=== PATIENT | male | born 1965 | race Caucasian/White ===

== ENCOUNTER 2017-01-16 17:14 | Inpatient (IN) | payer OTHER, MEDICAID ==
[~2017-01-16] VITALS: Ht 170.2 cm; Wt 50.3 kg
[2017-01-16 17:26] VITALS: BP_SYST 124
--- NOTE | 2017-01-16 17:32 | NUR ---
PT to bed 5
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
--- NOTE | 2017-01-16 18:08 | NUR ---
ER Dr. Quevedo at bedside examining patient.
[2017-01-16] MEDS ORDERED: POLYETHYLENE GLYCOL 3350, 17 GM/ POWD.PACK PO ONE (18:15)
[2017-01-16] MEDS ORDERED: BISACODYL 10 MG/SUPPOSITORY RC ONE (18:15)
[2017-01-16 18:23] LABS: HEMOGLOBIN 11.5 g/dL (14.0-18.0); RED CELL DISTRIBUTION WIDTH 14.5 % (9.0-15.0)
[2017-01-16 18:32] LABS: BASOPHILS # (AUTO) 0.1 K/uL (0.0-0.2); BASOPHILS % (AUTO) 1.5 % (0.0-2.0); EOSINOPHILS # (AUTO) 0.2 K/uL (0.0-0.4); EOSINOPHILS % (AUTO) 2.3 % (0.0-4.0); LYMPHOCYTES # (AUTO) 3.8 K/uL (1.0-5.5); LYMPHOCYTES % (AUTO) 40.6 % (20.5-51.5); MEAN CORPUSCULAR HEMOGLOBIN 22 pg (27-31); MEAN CORPUSCULAR HGB CONC 33 % (32-36); MEAN CORPUSCULAR VOLUME 67 fL (79.0-98.0); MONOCYTES # (AUTO) 0.6 K/uL (0.0-1.0); MONOCYTES % (AUTO) 6.9 % (1.7-9.3); NEUTROPHILS # (AUTO) 4.7 K/uL (1.8-7.7); NEUTROPHILS % (AUTO) 48.7 % (40.0-70.0); PLATELET COUNT (AUTO) 415 K/uL (130-430); PROTHROMBIN TIME 10.9 SECS (9.5-12.5); RED BLOOD CELL COUNT(AUTO) 5.21 MIL/uL (4.2-6.2); WHITE BLOOD COUNT (AUTO) 9.4 K/uL (4.8-10.8)
[2017-01-16 18:45] LABS: CALCIUM 9.2 mg/dL (8.4-11.0); CREATININE 0.61 mg/dL (0.55-1.30); POTASSIUM 3.9 mmol/L (3.5-5.1)
[2017-01-16 18:49] LABS: ALBUMIN 3.6 g/dL (3.4-4.8); TOTAL BILIRUBIN 0.3 mg/dL (0.0-1.0)
[2017-01-16 18:49] LABS: BILIRUBIN,URINE NEGATIVE (NEGATIVE); BLOOD, URINE TRACE (NEGATIVE); CLARITY/URINE CLEAR (CLEAR); COLOR,URINE YELLOW (YELLOW); GLUCOSE,URINE NEGATIVE (NEGATIVE); KETONES,URINE NEGATIVE (NEGATIVE); LEUKOCYTE ESTERASE ,URINE NEGATIVE (NEGATIVE); NITRITE, URINE NEGATIVE (NEGATIVE); PH,URINE 6.5 (5.0-8.0); PROTEIN URINE NEGATIVE (NEGATIVE); UROBILINOGEN,URINE 0.2 (0.2-1.0)
[2017-01-16 18:51] LABS: BACTERIA,URINE FEW /HPF (None Seen); MUCUS,URINE None Seen /LPF (None Seen); WBC,URINE 0-3 /HPF (0-3)
--- NOTE | 2017-01-16 18:51 | NUR ---
Portable CXR at . Pt is huber well Addendum: 01/16/17 at 1852 by [email or web address] Portable abd xray at . pt is huber well
[2017-01-16] MEDS ORDERED: POLYETHYLENE GLYCOL 3350, 17 GM/ POWD.PACK ONE (18:54)
[2017-01-16] MEDS ORDERED: NA PHOS,M-B/NA PHOS,DI-BA 118 ML (FLEET ENEMA) RC ONE (19:30)
--- NOTE | 2017-01-16 19:50 | NUR ---
ER MD PULIDO at bedside evaluating patient.
[2017-01-16] MEDS ORDERED: LACTULOSE 20 GM/30 ML UDC PO ONE (20:15)
--- NOTE | 2017-01-16 20:30 | NUR ---
Pt has passed one small bowel movement. Pt states he still feels constipated. Fleet enema has been given. Will continue to monitor.
--- NOTE | 2017-01-16 22:05 | NUR ---
Pt to radiology.
[2017-01-16] MEDS ORDERED: LEVO750T45 PO (23:27)
--- NOTE | 2017-01-16 23:28 | NUR ---
Soap enema placed per MD verbal order, 500 mL of solution completed. Will monitor patient for bowel movements.
--- NOTE | 2017-01-16 23:28 | NUR ---
Medication reconciliation completed with information provided by - verbal from patient. Any prior medication reconciliation on file was reviewed and corrected.
--- NOTE | 2017-01-16 23:34 | NUR ---
Patient will be admitted to care of Abhishek Maher. Admitted to tele unit. Will go to room 135. Belongings list completed. Summary report printed. Report will be given at bedside.
[2017-01-16] MEDS ORDERED: MAGNESIUM CITRATE 300 ML ORAL SOLUTION PO ONE (23:45)
[2017-01-16] MEDS ORDERED: MINERAL OIL 30 ML UDC PO ONE (23:45)
[2017-01-17] VITALS (7 sets, daily range): BP systolic 111–140
--- NOTE | 2017-01-17 | NUR ---
ADMISSION NOTE Received patient from ER via gurjaci, received report from RN. Patient admitted with diagnosis of fecal impaction. Patient oriented to hospital routine, call light, toileting and safety-patient verbalized understanding.
--- NOTE | 2017-01-17 | NUR ---
Patient will be admitted to care of ZACHARY Hicks. Admitted to MED SURG unit. Will go to room 100 A . Belongings list completed. Summary report printed. Report will be given at bedside.
--- NOTE | 2017-01-17 00:54 | NUR ---
paged paged for Dr Maher, dialed . s/w Anthony.
[2017-01-17] MEDS: HYDROmorphone 2 MG/ML VIAL IVP PRN ×6 (01:47→22:05)
--- NOTE | 2017-01-17 02:37 | NUR ---
Rounds Notes Patient on bed, sleeping noted. No sign of respiratory distress and no complain of pain or discomfort noted. F/C is intact draining with yellow clear urine noted. Will continue to monitor. Call light within reach.
--- NOTE | 2017-01-17 04:04 | NUR ---
Rounds Notes Patient on bed, sleeping noted covered with blankets. No sign of respiratory distress and no complain of pain or discomfort noted. Will continue to monitor. Call light within reach.
--- NOTE | 2017-01-17 06:17 | NUR ---
Closing Notes Patient on bed awake, alert and verbally responsive watching TV noted. No sign of respiratory distress and given pain medication as ordered with no complain of pain noted. All needs attended and met by staff. Call light within reach.
--- NOTE | 2017-01-17 08:00 | NUR ---
Opening Note Report received from [facility] shift nurse. Patient is in stable condition and resting in bed. IV is on the right hand 20g saline locked. Butt catheter is to gravity draining clear yellow urine. Call light is within reach and bed is in low position. Will continue to monitor.
[2017-01-17] MEDS: NICOTINE 21 MG/24 HR PATCH.TD24 TD SCH (09:34)
--- NOTE | 2017-01-17 10:02 | NUR ---
Rounds Patient is resting in bed. Call light is within reach.
--- NOTE | 2017-01-17 12:30 | NUR ---
Rounds Patient is resting in bed. Call light is within reach. No signs of distress noted.
--- NOTE | 2017-01-17 14:35 | NUR ---
Rounds Patient is resting in bed. Call light is within reach.
--- NOTE | 2017-01-17 16:25 | NUR ---
Tierney cath flushed Flushed tierney cath with 30ml. Total ouptut of urine was 500ml. Patient tolerated well.
[2017-01-17] MEDS ORDERED: BISACODYL 10 MG/SUPPOSITORY RC ONE (17:45)
[2017-01-17] MEDS: LR 1,000 ML IV SCH (18:11)
[2017-01-17] MEDS: BISACODYL 10 MG/SUPPOSITORY RC PRN (18:15)
--- NOTE | 2017-01-17 18:25 | NUR ---
Closing Note Dr. Maher rounded on the patient. MD gave orders for IV fluids and suppository. also ordered a consult with Dr. Villalta. IV is on the left hand 20g. Will endorse care to the oncoming nurse.
--- NOTE | 2017-01-17 19:15 | NUR ---
CHANGE OF SHIFT: pt. awake, alert, being cleaned at this time. IVF infusing via rt. hand with LR @ 100 cc/hr. call light within reach.
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
--- NOTE | 2017-01-17 21:00 | NUR ---
NOTES: noted IV site leaking and accidentally came out. asked charge nurse Dida to insert a new one.
--- NOTE | 2017-01-17 22:15 | NUR ---
NOTES: pt. c/o back and neck and medicated with Dilaudid IV as ordered. call light within reach.
--- NOTE | 2017-01-17 23:00 | NUR ---
NOTES: noted relief from pain. pt. asked to be clean, SERA Grey help and clean him up and repositioned, pt. on air mattress. IV site on rt. wrist area. pt. needs attended.
[2017-01-18 00:07] VITALS: BP_SYST 126
--- NOTE | 2017-01-18 01:30 | NUR ---
NOTES: pt. sleeping when checked. IVF patent.
[2017-01-18] MEDS: HYDROmorphone 2 MG/ML VIAL IVP PRN ×4 (03:02→15:07)
--- NOTE | 2017-01-18 03:10 | NUR ---
NOTES: pt. awakened and was medicated with Dilaudid for c/o back and neck pain. repositioned.
[2017-01-18 04:01] VITALS: BP_SYST 121
--- NOTE | 2017-01-18 04:49 | NUR ---
GI CONSULT: DR BARRETO Consult was called, RE fecal impaction JUSTIN Yoo
[2017-01-18] MEDS: LR 1,000 ML IV SCH ×2 (05:44→14:23)
--- NOTE | 2017-01-18 06:00 | NUR ---
NOTES: pt. already awake, getting upset, wants to eat, offered jello and informed will ask MD later this am to advance diet. X ray done for bowel series at bedside. IVF continuous. for further care and observation.
[2017-01-18 06:42] LABS: HEMOGLOBIN 10.8 g/dL (14.0-18.0); MEAN CORPUSCULAR HEMOGLOBIN 21 pg (27-31); MEAN CORPUSCULAR HGB CONC 32 % (32-36); MEAN CORPUSCULAR VOLUME 67 fL (79.0-98.0); PLATELET COUNT (AUTO) 420 K/uL (130-430); RED BLOOD CELL COUNT(AUTO) 5.04 MIL/uL (4.2-6.2); WHITE BLOOD COUNT (AUTO) 8.1 K/uL (4.8-10.8)
[2017-01-18 07:08] LABS: CALCIUM 8.6 mg/dL (8.4-11.0); CREATININE 0.46 mg/dL (0.55-1.30); POTASSIUM 4.3 mmol/L (3.5-5.1)
--- NOTE | 2017-01-18 07:15 | NUR ---
endorsed pt. to incoming shift with nurse Addendum: 01/18/17 at 0749 by Kiki Bello RN pt. was just medicated with IV Dilaudid for c/o back and neck pain.
[2017-01-18 07:29] LABS: BASOPHILS % (MANUAL) 0 % (0-2); EOSINOPHILS % (MANUAL) 2 % (0-7); LYMPHOCYTES % (MANUAL) 57 % (20-46); MONOCYTES % (MANUAL) 8 % (0-11)
--- NOTE | 2017-01-18 07:32 | NUR ---
Initial notes: patient on bed awake, alert and oriented. I.V. access in placed. Discussed plan of care. Safety measures in placed. Call light within reach. Report received at bedside.
[2017-01-18 07:48] VITALS: BP_SYST 105
--- NOTE | 2017-01-18 08:15 | NUR ---
Julio rounds: seen by Dr. Gurrola with diet order.
[2017-01-18] MEDS: NICOTINE 21 MG/24 HR PATCH.TD24 TD SCH (08:27)
--- NOTE | 2017-01-18 08:32 | NUR ---
rounds: patient having breakfast. no distress noted.
[2017-01-18] MEDS ORDERED: LUBIPROSTONE 24 MCG CAPSULE PO SCH (09:00)
[2017-01-18] MEDS ORDERED: DOCUSATE SODIUM 100 MG CAPSULE PO SCH (09:00)
[2017-01-18] MEDS ORDERED: POLYETHYLENE GLYCOL 3350, 17 GM/ POWD.PACK PO SCH (09:00)
[2017-01-18] MEDS: BISACODYL 10 MG/SUPPOSITORY RC PRN (09:05)
--- NOTE | 2017-01-18 09:05 | NUR ---
constipation: pt complained of constipation and requesting suppository. suppository given.
--- NOTE | 2017-01-18 10:02 | NUR ---
rounds: patient resting on bed. no distress noted.
--- NOTE | 2017-01-18 11:03 | NUR ---
PAIN MEDS: Patient complained of back pain and neck pain 7/10. Due pain meds given thru IVP.
--- NOTE | 2017-01-18 11:55 | NUR ---
rounds: patient having lunch. no changed in condition.
[2017-01-18 12:18] VITALS: BP_SYST 113
--- NOTE | 2017-01-18 12:48 | NUR ---
rounds: patient on bed sleeping. no distress noted.
--- NOTE | 2017-01-18 14:32 | NUR ---
rounds: patient on bed resting. no distress noted.
--- NOTE | 2017-01-18 16:19 | NUR ---
rounds: patient on bed resting. no distress noted.
[2017-01-18 16:47] VITALS: BP_SYST 111
--- NOTE | 2017-01-18 17:00 | NUR ---
jayden zelaya: Seen by Dr. Maher with D/C with .
[2017-01-18 18:02] VITALS: BP_SYST 111
--- NOTE | 2017-01-18 18:15 | NUR ---
D/C Patient Patient given medication reconciliation form and D/C instructions. Exit Care provided. Patient verbalized understanding. MD discussed with patient the results and treatment provided. Patient wheelchair bound for discharge to home. Patient in stable condition, ID band removed. IV catheter removed, intact and dressing applied, no active bleeding. Patient educated on pain management. All belongings sent with patient.
--- NOTE | 2017-01-19 09:56 | NUR ---
DISCHARGE PLANNING [place] order for home health. Called patient who stated he is homeless and does not have an address at this time. Patient stated he is currently making arrangements to live with his son in [place]. [facility] offered to make arrangements and patient requested to not have home health arranged at this time as he does not have an address to give. Addendum: 01/19/17 at 1011 by Alina SMITH Meanwhile; Faxed home health referral to [phone] made them aware patient is homeless. Addendum: 01/19/17 at 1620 by Alina SMITH Spoke with Michelle at [facility] accept case and will call patient to make visit arrangements. Addendum: 01/20/17 at 0914 by Alina SMITH Received call from Michelle at [facility] who spoke with patient this morning and felt patient needed to be admitting to SNF and may return back to hospital this AM.
== END 2017-01-18 18:15 | disposition home or self-care (01) | DRG 389 ==
LOC: SED 17:14 → SMU 23:30
PROVIDERS: ADMIT Internal Medicine; ATTEND Internal Medicine
DX: K56.41 Fecal impaction (principal); G82.20 Paraplegia, unspecified; F17.200 Nicotine dependence, unspecified, uncomplicated; R33.9 Retention of urine, unspecified
CPT/HCPCS: 36415; 74000-TC; 80048; 80053; 81000-TC; 82150-TC; 83690-TC; 85007; 85025; 85027; 85610-TC; 87081; 99285; J1170; J7120

== ENCOUNTER 2017-01-20 12:14 | Emergency (ER) | payer OTHER, MEDICAID ==
[~2017-01-20] VITALS: Ht 170.2 cm; Wt 51.7 kg
[~2017-01-20 12:14] MED LIST: LEVO750T45 PO
[2017-01-20 12:28] VITALS: BP 110/67; PULSE 109; RESP 16; TEMP 97.6; O2SAT 98
[2017-01-20] MEDS ORDERED: KETOROLAC TROMETHAMINE 30 MG VIAL IM ONE (15:30)
[2017-01-20] MEDS ORDERED: LACTULOSE 20 GM/30 ML UDC PO ONE (16:45)
[2017-01-20] MEDS ORDERED: LORazepam 1 MG TABLET PO ONE (17:15)
[2017-01-20] MEDS ORDERED: DICYCLOMINE HCL 20 MG/2 ML AMP IM ONE (17:15)
[2017-01-20 18:40] VITALS: BP 101/54; PULSE 78; RESP 16; TEMP 97.6; O2SAT 98
== END 2017-01-20 18:40 ==
LOC: SED 12:14
DX: K56.41 Fecal impaction (principal); G82.20 Paraplegia, unspecified; R11.0 Nausea
CPT/HCPCS: 96372; 96374; 99284; J0500; J1885

== ENCOUNTER 2017-05-01 07:58 | Emergency (ER) | payer OTHER, MEDICAID ==
[~2017-05-01] VITALS: Ht 170.2 cm; Wt 51.3 kg
[2017-05-01 08:00] VITALS: BP_SYST 120
[2017-05-01] MEDS ORDERED: NACL 0.9% 1,000 ML IV ONE (08:36)
[2017-05-01 09:04] LABS: BILIRUBIN,URINE NEGATIVE (NEGATIVE); BLOOD, URINE NEGATIVE (NEGATIVE); CLARITY/URINE CLEAR (CLEAR); COLOR,URINE YELLOW (YELLOW); GLUCOSE,URINE NEGATIVE (NEGATIVE); KETONES,URINE NEGATIVE (NEGATIVE); LEUKOCYTE ESTERASE ,URINE NEGATIVE (NEGATIVE); NITRITE, URINE NEGATIVE (NEGATIVE); PROTEIN URINE NEGATIVE (NEGATIVE); UROBILINOGEN,URINE 0.2 (0.2-1.0)
[2017-05-01 09:15] LABS: BASOPHILS # (AUTO) 0.1 K/uL (0.0-0.2); EOSINOPHILS # (AUTO) 0.3 K/uL (0.0-0.4); EOSINOPHILS % (AUTO) 2.9 % (0.0-4.0); HEMATOCRIT 36.9 % (36-54); HEMOGLOBIN 11.4 g/dL (14.0-18.0); LYMPHOCYTES # (AUTO) 2.9 K/uL (1.0-5.5); LYMPHOCYTES % (AUTO) 32.4 % (20.5-51.5); MEAN CORPUSCULAR HEMOGLOBIN 21 pg (27-31); MEAN CORPUSCULAR HGB CONC 31 % (32-36); MEAN CORPUSCULAR VOLUME 68 fL (79.0-98.0); MONOCYTES # (AUTO) 0.5 K/uL (0.0-1.0); MONOCYTES % (AUTO) 5.5 % (1.7-9.3); NEUTROPHILS # (AUTO) 5.1 K/uL (1.8-7.7); NEUTROPHILS % (AUTO) 58.2 % (40.0-70.0); PLATELET COUNT (AUTO) 411 K/uL (130-430); RED BLOOD CELL COUNT(AUTO) 5.41 MIL/uL (4.2-6.2); RED CELL DISTRIBUTION WIDTH 14.5 % (9.0-15.0); WHITE BLOOD COUNT (AUTO) 8.9 K/uL (4.8-10.8)
[2017-05-01] MEDS ORDERED: ACETAMINOPHEN 325 MG TABLET PO ONE (09:15)
[2017-05-01 09:20] LABS: CALCIUM 8.7 mg/dL (8.4-11.0); CREATININE 0.27 mg/dL (0.55-1.30); POTASSIUM 3.1 mmol/L (3.5-5.1)
[2017-05-01 09:25] LABS: ALBUMIN 3.8 g/dL (3.4-4.8); TOTAL BILIRUBIN 0.6 mg/dL (0.0-1.0)
[2017-05-01 10:00] VITALS: BP_SYST 117
[2017-05-01] MEDS ORDERED: MAGNESIUM CITRATE 300 ML ORAL SOLUTION PO ONE (10:00)
[2017-05-01] MEDS ORDERED: POTASSIUM CHLORIDE 20 MEQ TAB.PRT.SR PO ONE (10:00)
[2017-06-29] MEDS ORDERED: OXYC60TA8 PO (18:30)
[2017-09-30] MEDS ORDERED: DOCU250C14 PO (12:03)
[2017-09-30] MEDS ORDERED: BISA-79 PO (12:04)
[2017-09-30] MEDS ORDERED: HYDR2TAB34 PO (12:05)
== END 2017-05-01 10:00 | disposition home or self-care (01) ==
LOC: SED 07:58
DX: K52.9 Noninfective gastroenteritis and colitis, unspecified (principal); G82.20 Paraplegia, unspecified
CPT/HCPCS: 36415; 74018; 80053; 81003; 83605; 83690; 85025; 87040; 96360; 99285; J7030

== ENCOUNTER 2018-07-10 16:51 | Emergency (ER) | payer OTHER, MEDICAID ==
[~2018-07-10] VITALS: Ht 170.2 cm; Wt 51.3 kg
[~2018-07-10 16:51] MED LIST changes: +BISA-79 PO; +DOCU250C14 PO; +HYDR2TAB34 PO; -LEVO750T45 PO; +OXYC60TA8 PO
[2018-07-10 16:59] VITALS: BP_SYST 149
--- NOTE | 2018-07-10 17:05 | NUR ---
Patient to ER bed 6 to gown for evaluation. Side rails up. Report given to ZACHARY Yoo.
--- NOTE | 2018-07-10 17:08 | NUR ---
ER Dr. Zavala at bedside examining patient.
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
[2018-07-10] MEDS ORDERED: KETOROLAC TROMETHAMINE 60 MG/2 ML VIAL IM ONE (17:15)
--- NOTE | 2018-07-10 17:15 | NUR ---
Patient offered social media content manager, pt declined. Patient offered clean clothes, pt declined. Patient offered sandwich, sandwich given.
[2018-07-10 17:55] VITALS: BP_SYST 149
--- NOTE | 2018-07-10 17:55 | NUR ---
Patient given written and verbal discharge instructions and verbalizes understanding. ER MD discussed with patient the results and treatment provided. Patient in stable condition. ID arm band removed. Rx of Tramadol & lomotil given. Patient educated on pain management and to follow up with PMD. Pain Scale 2/10 tolerable for pt.. Opportunity for questions provided and answered. Medication side effect fact sheet provided.
--- NOTE | 2018-07-10 17:55 | NUR ---
Pt given Homeless reaource packet on discharge.
--- NOTE | 2018-07-10 17:55 | NUR ---
Patient given written and verbal discharge instructions and verbalizes understanding. ER MD discussed with patient the results and treatment provided. Patient in stable condition. ID arm band removed. Rx of tramadol, lomotil given. Patient educated on pain management and to follow up with PMD. Pain Scale2/10 and tolerable for pt . Opportunity for questions provided and answered. Medication side effect fact sheet provided.
== END 2018-07-10 17:55 | disposition home or self-care (01) ==
LOC: SED 16:51
DX: G89.29 Other chronic pain (principal); R19.7 Diarrhea, unspecified; M54.9 Dorsalgia, unspecified; F43.9 Reaction to severe stress, unspecified; R03.0 Elevated blood-pressure reading, without diagnosis of hypertension; Z79.899 Other long term (current) drug therapy
CPT/HCPCS: 96372; 99283; J1885

== ENCOUNTER 2018-07-24 05:22 | Emergency (ER) | payer OTHER, MEDICAID ==
[~2018-07-24] VITALS: Ht 167.6 cm; Wt 68.0 kg
== END 2018-07-24 06:19 | disposition left against medical advice (07) ==
LOC: SED 05:22
DX: R10.9 Unspecified abdominal pain (principal); Z53.21 Procedure and treatment not carried out due to patient leaving prior to being seen by health care provider

== ENCOUNTER 2018-08-05 13:29 | Emergency (ER) | payer OTHER, MEDICAID ==
[~2018-08-05] VITALS: Ht 170.2 cm; Wt 49.9 kg
[2018-08-05 13:30] VITALS: BP_SYST 96
[2018-08-05] MEDS ORDERED: NACL 0.9% 1,000 ML IV ONE (14:15)
[2018-08-05 15:00] LABS: BASOPHILS # (AUTO) 0.1 K/uL (0.0-0.2); BASOPHILS % (AUTO) 1.2 % (0.0-2.0); EOSINOPHILS # (AUTO) 0.1 K/uL (0.0-0.4); EOSINOPHILS % (AUTO) 1.1 % (0.0-4.0); HEMATOCRIT 35.2 % (36-54); HEMOGLOBIN 11.1 g/dL (14.0-18.0); LYMPHOCYTES # (AUTO) 4.7 K/uL (1.0-5.5); LYMPHOCYTES % (AUTO) 42.1 % (20.5-51.5); MEAN CORPUSCULAR HEMOGLOBIN 21 pg (27-31); MEAN CORPUSCULAR HGB CONC 32 % (32-36); MEAN CORPUSCULAR VOLUME 67 fL (79.0-98.0); MONOCYTES # (AUTO) 0.4 K/uL (0.0-1.0); MONOCYTES % (AUTO) 3.4 % (1.7-9.3); NEUTROPHILS # (AUTO) 5.9 K/uL (1.8-7.7); NEUTROPHILS % (AUTO) 52.2 % (40.0-70.0); PLATELET COUNT (AUTO) 583 K/uL (130-430); RED BLOOD CELL COUNT(AUTO) 5.28 MIL/uL (4.2-6.2); RED CELL DISTRIBUTION WIDTH 17.6 % (9.0-15.0); WHITE BLOOD COUNT (AUTO) 11.3 K/uL (4.8-10.8)
[2018-08-05 15:08] LABS: BILIRUBIN,URINE NEGATIVE (NEGATIVE); BLOOD, URINE 1+ (NEGATIVE); CLARITY/URINE CLEAR (CLEAR); COLOR,URINE YELLOW (YELLOW); GLUCOSE,URINE NEGATIVE (NEGATIVE); KETONES,URINE NEGATIVE (NEGATIVE); LEUKOCYTE ESTERASE ,URINE TRACE (NEGATIVE); NITRITE, URINE POSITIVE (NEGATIVE); PH,URINE 6.5 (5.0-8.0); PROTEIN URINE NEGATIVE (NEGATIVE); UROBILINOGEN,URINE 0.2 (0.2-1.0)
[2018-08-05 15:15] LABS: CALCIUM 9.1 mg/dL (8.4-11.0); CHLORIDE 102 mmol/L (98-107); CREATININE 0.39 mg/dL (0.55-1.30); GLUCOSE 81 mg/dL (70-99); POTASSIUM 4.2 mmol/L (3.5-5.1); SODIUM SERUM 128 mmol/L (136-145); UREA NITROGEN, BLOOD 13 mg/dL (8-21)
[2018-08-05 15:20] LABS: ALANINE AMINOTRANSFERASE 46 U/L (12-78); ALBUMIN 3.1 g/dL (3.4-4.8); ASPARTATE AMINOTRANSFERASE 33 U/L (10-37); LIPASE 163 U/L (73-393); TOTAL BILIRUBIN 0.3 mg/dL (0.0-1.0)
[2018-08-05 15:24] LABS: ANION GAP < 3 (5-15); GFR AFRICAN AMERICAN 296 mL/min (>90)
[2018-08-05 15:28] LABS: BACTERIA,URINE MODERATE /HPF (None Seen)
[2018-08-05 15:30] VITALS: BP_SYST 101
[2018-08-05 15:31] LABS: BARBITURATE, URINE NEGATIVE (NEG <=200); BENZODIAZEPINE, URINE NEGATIVE (NEG <=150); CANNABINOID, URINE NEGATIVE (NEG <=50); COCAINE, URINE NEGATIVE (NEG <=150); METHAMPHETAMINES SCREEN,URINE NEGATIVE (NEG <=500); OPIATE, URINE NEGATIVE (NEG <=100); PHENCYCLIDINE SCREEN,URINE NEGATIVE (NEG <=25); UR TRICYCLIC ANTIDEPRESSANTS NEGATIVE (NEG <=300); URINE AMPHETAMINE NEGATIVE (NEG <=500); URINE METHADONE NEGATIVE (NEG <=200); URINE OXYCODONE SCREEN NEGATIVE (NEG <=100); URINE PROPOXYPHENE SCREEN NEGATIVE (NEG <=300)
[2018-08-05] MEDS ORDERED: cefTRIAXone 1 GM in D5W 50 ML IV ONE (16:30)
[2018-08-05] MEDS ORDERED: cefTRIAXone 1 GM VIAL ONE (16:37)
== END 2018-08-05 16:36 | disposition left against medical advice (07) ==
LOC: SED 13:29
DX: K59.00 Constipation, unspecified (principal); N39.0 Urinary tract infection, site not specified; Z79.899 Other long term (current) drug therapy
CPT/HCPCS: 36415; 74018; 80053; 80307; 81000; 83605; 83690; 85025; 87040; 87086; 87186; 96365; 99284; J0696; J7030

== ENCOUNTER 2018-10-29 23:48 | Inpatient (IN) | payer OTHER, MEDICAID ==
[~2018-10-29] VITALS: Ht 170.2 cm; Wt 57.6 kg
[2018-10-30 00:15] VITALS: BP_SYST 124
--- NOTE | 2018-10-30 00:21 | NUR ---
Patient triaged and placed in waiting room. VSS and patient appears in no acute distress at this time. Accompanied by self, awaiting available bed, and MD notified of need for MSE.
--- NOTE | 2018-10-30 00:30 | NUR ---
Patient to ER bed 8 to gown for evaluation. Side rails up.
--- NOTE | 2018-10-30 00:35 | NUR ---
Pt C/O Pain and swelling to bilateral extremities. Pt states he was treated at [facility] for a femur infection. Pt is wheelchair bound and has chronic pain. Denies any chest pain, shortness of breath, N/V, fever or any other symptoms at this time. Will continue to monitor.
--- NOTE | 2018-10-30 00:40 | NUR ---
SONIA Gonzalez at bedside examining patient.
[2018-10-30] MEDS ORDERED: MORPHINE 4 MG/ML INJ. SYRINGE IVP ONE (00:45)
--- NOTE | 2018-10-30 01:00 | NUR ---
# 22 gauge angiocath placed to RT HAND. Use of asceptic technique. Opsite placed over site. Blood return noted. Blood for lab drawn from site. Flushed with 10 cc of normal saline. No evidence of infiltration noted. Patient tolerated well.
[2018-10-30 01:39] LABS: BASOPHILS # (AUTO) 0.2 K/uL (0.0-0.2); BASOPHILS % (AUTO) 0.9 % (0.0-2.0); HEMOGLOBIN 10.1 g/dL (14.0-18.0); RED CELL DISTRIBUTION WIDTH 23.2 % (9.0-15.0)
[2018-10-30 01:44] LABS: EOSINOPHILS # (AUTO) 0.3 K/uL (0.0-0.4); EOSINOPHILS % (AUTO) 1.5 % (0.0-4.0); HEMATOCRIT 31.1 % (36-54); LYMPHOCYTES # (AUTO) 2.5 K/uL (1.0-5.5); LYMPHOCYTES % (AUTO) 14.3 % (20.5-51.5); MEAN CORPUSCULAR HEMOGLOBIN 24 pg (27-31); MEAN CORPUSCULAR HGB CONC 32 % (32-36); MEAN CORPUSCULAR VOLUME 75 fL (79.0-98.0); MONOCYTES # (AUTO) 1.6 K/uL (0.0-1.0); MONOCYTES % (AUTO) 9.3 % (1.7-9.3); NEUTROPHILS # (AUTO) 12.7 K/uL (1.8-7.7); RED BLOOD CELL COUNT(AUTO) 4.14 MIL/uL (4.2-6.2); WHITE BLOOD COUNT (AUTO) 17.2 K/uL (4.8-10.8)
[2018-10-30 01:53] LABS: CREATININE 1.29 mg/dL (0.55-1.30)
[2018-10-30 01:58] LABS: ALBUMIN 2.7 g/dL (3.4-4.8); TOTAL BILIRUBIN 0.5 mg/dL (0.0-1.0)
[2018-10-30 02:00] LABS: PLATELET COUNT (AUTO) 939 K/uL (130-430)
--- NOTE | 2018-10-30 02:10 | NUR ---
Pt is resting in bed, no acute distress noted at this time. Will continue to monitor.
[2018-10-30] MEDS ORDERED: NACL 0.9% 1,000 ML IV ONE (02:15)
--- NOTE | 2018-10-30 02:31 | NUR ---
# 16 FR In and Out catheter with use of sterile technique. Immediate return of 600 ml yellow urine noted. Urine sample collected and sent to lab. Pt tolerated procedure well. Patient unable to toilet self. States he has to self catheterize to expel urine.
[2018-10-30 02:51] LABS: BILIRUBIN,URINE NEGATIVE (NEGATIVE); CLARITY/URINE CLEAR (CLEAR); COLOR,URINE YELLOW (YELLOW); GLUCOSE,URINE NEGATIVE (NEGATIVE); KETONES,URINE NEGATIVE (NEGATIVE); LEUKOCYTE ESTERASE ,URINE NEGATIVE (NEGATIVE); NITRITE, URINE NEGATIVE (NEGATIVE); PROTEIN URINE NEGATIVE (NEGATIVE); UROBILINOGEN,URINE 0.2 (0.2-1.0)
[2018-10-30 02:53] LABS: BLOOD, URINE TRACE (NEGATIVE)
[2018-10-30 02:55] LABS: BACTERIA,URINE FEW /HPF (None Seen); WBC,URINE 0-3 /HPF (0-3)
[2018-10-30] MEDS ORDERED: VANCOMYCIN HCL 1,000 MG in NS 250 ML IV ONE (03:00)
[2018-10-30] MEDS ORDERED: PIPERACILLIN/TAZO 3.375 GM in NS 50 ML IV ONE (03:00)
--- NOTE | 2018-10-30 03:00 | NUR ---
End of life care decisions discussed with patient by Dr. Gonzalez. Opportunity for questions and concerns addressed. Patient's code status is DNR paperwork completed and placed in chart.
--- NOTE | 2018-10-30 03:04 | NUR ---
Per patient, he does not take any prescribed medications at home.
[2018-10-30] MEDS ORDERED: PIPERACILLIN/TAZOBACTAM 3.375 GM/VIAL (ZOSYN) IV ONE ×2 (03:15)
[2018-10-30] MEDS ORDERED: VANCOMYCIN HCL 1000 MG/VIAL IV ONE ×2 (03:26)
[2018-10-30] MEDS ORDERED: MAGNESIUM CITRATE 300 ML ORAL SOLUTION PO ONE (04:00)
--- NOTE | 2018-10-30 04:00 | NUR ---
Patient will be admitted to care of Dr. Maher. Admitted to telemetry unit. Will go to room 133B. Belongings list completed. Summary report printed. Report will be given at bedside.
--- NOTE | 2018-10-30 04:09 | NUR ---
Magnesium citrate given NOW per Dr. Maher's telephone order.
[2018-10-30] MEDS ORDERED: MAGNESIUM CITRATE 300 ML ORAL SOLUTION ONE (04:16)
[2018-10-30 04:24] VITALS: BP_SYST 97
--- NOTE | 2018-10-30 04:24 | NUR ---
ADMISSION NOTE Received patient from ER via christian, received report from ZACHARY WALKER. Patient admitted with diagnosis of POST OP INFECTION. Patient oriented to hospital routine, call light, toileting and safety-patient verbalized understanding.
--- NOTE | 2018-10-30 04:41 | NUR ---
Transfer to [facility] via ACLS protocol. Licensed nurse present. IV present no signs or symptoms of infiltration.
[2018-10-30] MEDS ORDERED: ONDANSETRON HCL 4 MG/2 ML VIAL IVP PRN (05:00)
[2018-10-30] MEDS: NACL 0.9% 1,000 ML IV SCH ×2 (05:10→20:43)
[2018-10-30] MEDS: HYDROmorphone 1 MG INJ. 1 MG/ML AMPUL IVP PRN ×5 (05:11→21:23)
--- NOTE | 2018-10-30 05:45 | NUR ---
Btut Catheter inserted with immediate urine return. Bag hung below bed not touching the floor. No pain upon insertion. tolerated well.
--- NOTE | 2018-10-30 07:35 | NUR ---
OPENING NOTE Patient resting in the bed comfortable. No acute distress. Skin warm and dry to touch. IV intact to right hand, no redness, no swelling, no drainage. On NS at 100ml/hr,infusing well. F/C intact, drain gravity with yellow urine. Safety measure maintained. Call light within reached. Bed locked in low position, side rails up, bed alarm on. Will continue to monitor.
[2018-10-30 08:00] VITALS: BP_SYST 120
--- NOTE | 2018-10-30 08:15 | NUR ---
REFUSED HEART MONITOR Patient removed heart monitor and stated "I don't need it. I just want to smoke and I need the real food not the liquid". Called Dr. Maher and waited to call back.
--- NOTE | 2018-10-30 08:17 | NUR ---
OFF UNIT TO SMOKE VIA WHEELCHAIR WITH ARTIFICIAL LIMB FITTER IN STABLE CONDITION.
--- NOTE | 2018-10-30 08:19 | NUR ---
PAGED PAGED BUBBA ELDER AT [phone] SPOKE WITH CONSUELO.
--- NOTE | 2018-10-30 08:26 | NUR ---
DR. LIU [facility] CALLED BACK Received the call back from Dr. Liu, informed to Dr. Liu what the patient said and did. Dr. Liu with order to DC tele , change to med-surg, and craig to high fiber diet. Order read back and okay to .
--- NOTE | 2018-10-30 08:45 | NUR ---
BACK TO UNIT AFTER SMOKING VIA WHEELCHAIR WITH ANGLESMITH HELPER IN STABLE CONDITION.
[2018-10-30] MEDS: PIPERACILLIN/TAZO 3.375 GM in NS 50 ML IV SCH ×4 (09:19→23:21)
--- NOTE | 2018-10-30 09:21 | NUR ---
DILAUDID GIVEN Patient c/o back and neck pain 11/27. Dilaudid 1mg IVP given as ordered. No acute distress. Safety measure maintained. Bed locked in low position, side rails up. Call light within reached. Continue to monitor.
--- NOTE | 2018-10-30 09:25 | NUR ---
SECOND LACTIC ACID DRAWN AT THIS TIME DUE TO PATIENT REFUSED EARLY.
--- NOTE | 2018-10-30 10:51 | NUR ---
Nutrition Update Vishal Scale 16 noted. Pt admitted for post-op infection. Diet: regular, high fiber BMI: 19.9 kg/m2 RD to follow per nutrition care standards.
--- NOTE | 2018-10-30 11:00 | NUR ---
ROUND Patient resting in the bed with eyes closed. No acute distress. IV intact, IVF infusing well. Safety measure maintained. Bed locked in low position, side rails up. Call light within reached. Continue to monitor.
[2018-10-30] MEDS ORDERED: LACTULOSE 20 GM/30 ML UDC PO ONE (11:30)
--- NOTE | 2018-10-30 12:10 | NUR ---
SEEN AND EXAMINED BY BUBBA DE JESUS WITH ORDER RECEIVED.
[2018-10-30 12:26] VITALS: BP_SYST 109
--- NOTE | 2018-10-30 12:40 | NUR ---
PORTABLE XR OF CHEST AND RIGHT FEMUR DONE AT BEDSIDE.
[2018-10-30 12:42] LABS: TOTAL IRON BIND. CAPACITY 251 ug/dL (250-450)
--- NOTE | 2018-10-30 15:20 | NUR ---
ROUND Patient resting in the bed with eyes closed. No acute distress. IV intact, IVF infusing well. F/C intact, drain gravity with yellow urine, no hematuria/sediment noted. Safety measure maintained. Call light within reached. Bed locked in low position, side rails up. Continue to monitor.
--- NOTE | 2018-10-30 16:58 | NUR ---
PATIENT REMOVED SHAHID BY HIMSELF Patient removed Shahid by himself, no bleeding, balloon was deflated. Stated that it was clogged. It was 500 ml of clear yellow urine in the bag, no hematuria, no sediment noted at this time. Will notify Dr. Maher.
--- NOTE | 2018-10-30 17:03 | NUR ---
OFF UNIT TO SMOKE VIA WHEELCHAIR IN STABLE CONDITION.
--- NOTE | 2018-10-30 17:09 | NUR ---
PAGED PAGED BUBBA ELDER AT [phone] SPOKE WITH DIVYA.
--- NOTE | 2018-10-30 17:20 | NUR ---
BACK TO UNIT AFTER SMOKING VIA WHEELCHAIR IN STABLE CONDITION.
--- NOTE | 2018-10-30 17:23 | NUR ---
SHAHID CATHETER Called Dr. Rosa Bill and received the call back from Dr. Maher. Informed to Dr. Maher patient removed Shahid catheter by himself, no injury, no bleeding, balloon was deflated. Per patient he felt it was clogged and he wants to insert a new one and irrigation as needed. Dr. Maher with order noted and carried out.
--- NOTE | 2018-10-30 17:45 | NUR ---
SHAHID CATH: # 16 FR Shahid catheter with 10 cc bulb inserted with use of sterile technique. Bulb inflated with 10 cc sterile water. Immediate return of 150 cc clear yellow urine noted. Bedside drainage bag placed below level of bladder. Pt tolerated procedure well. Shahid inserted by a male nurse, Karson SHARMA.
--- NOTE | 2018-10-30 18:22 | NUR ---
CLOSING NOTE Patient resting in the bed. No acute distress. PRN pain med given as needed. Skin warm and dry to touch. IV intact to right hand, no redness, no swelling, no drainage. On NS at 100ml/hr,infusing well. F/C intact, drain gravity with yellow urine, no hematuria/sediment noted. All needs met. Safety measure maintained. Call light within reached. Bed locked in low position, side rails up, bed alarm on. Will endorse to night nurse.
--- NOTE | 2018-10-30 19:10 | NUR ---
OPENING NOTE Bedside report received from dayshift nurse. Patient received in bed, sleeping, no s/s of acute distress noted. Breathing even and unlabored. IVF infusing well. Butt draining by gravity. Call light with patient. Bed is locked and at lowest position. Will continue to monitor.
[2018-10-30 20:00] VITALS: BP_SYST 115
--- NOTE | 2018-10-30 20:05 | NUR ---
SMOKE Patient requested to go out and smoke, patient was educated on harmful effects of smoking, patient verbalized understanding. Patient was escorted out via wheelchair with Hang ZAMORA.
--- NOTE | 2018-10-30 20:13 | NUR ---
BACK FROM SMOKING Patient back to unit. No signs of discomfort noted. Chest rise and fall even bilaterally. Patient back in bed, IVF infusing. Call light with patient. Butt attached, secured, draining by gravity. Will continue to monitor.
[2018-10-30] MEDS: ENOXAPARIN SODIUM 40 MG/0.4 ML SYRINGE SUBCUT SCH (20:45)
--- NOTE | 2018-10-30 21:00 | NUR ---
ROUNDS Patient in bed resting. No signs of discomfort noted. Chest rise and fall even bilaterally. IVF infusing well. Call light with patient. Will continue to monitor.
--- NOTE | 2018-10-30 23:00 | NUR ---
HEADACHE Patient complaining of headache at this time. Dr. Maher made aware. Dr. Maher stated that he will put in the orders. Will carry out orders.
[2018-10-30] MEDS ORDERED: HYDROcodone/ACETAMIN 10-325 MG TAB PO PRN (23:15)
[2018-10-30] MEDS: ACETAMINOPHEN 325 MG TABLET PO PRN (23:20)
[2018-10-31 00:02] VITALS: BP_SYST 106
[2018-10-31] MEDS: NACL 0.9% 1,000 ML IV SCH ×3 (01:00→20:16)
--- NOTE | 2018-10-31 01:00 | NUR ---
ROUNDS Patient in bed asleep at this time. No signs of discomfort noted. Chest rise and fall even bilaterally. IVF infusing well. Call light with patient. Will continue to monitor.
[2018-10-31] MEDS: HYDROmorphone 1 MG INJ. 1 MG/ML AMPUL IVP PRN ×6 (01:28→22:16)
--- NOTE | 2018-10-31 03:00 | NUR ---
ROUNDS Patient sleeping comfortably at this time. No s/s of acute distress noted. Breathing is even and unlabored. IVF infusing well. Call light with patient. Butt draining by gravity. Will continue to monitor.
[2018-10-31] MEDS: ACETAMINOPHEN 325 MG TABLET PO PRN (04:48)
[2018-10-31] MEDS: DIPHENHYDRAMINE INJ 50 MG/ML VIAL IVP PRN ×3 (04:56→20:07)
--- NOTE | 2018-10-31 05:00 | NUR ---
ITCHING Patient complained of feeling itchy, PRN medication to be administered. Call light with patient. Will continue to monitor and reassess.
[2018-10-31] MEDS: PIPERACILLIN/TAZO 3.375 GM in NS 50 ML IV SCH ×4 (05:26→23:42)
--- NOTE | 2018-10-31 06:21 | NUR ---
CLOSING NOTES Patient in bed sleeping at this time. No s/s of acute distress noted. Breathing even and unlabored. IVF infusing well, IV site patent, no signs of infiltration or infection noted. Butt attached, secured, and draining by gravity. All needs met throughout shift. Fall and safety precautions maintained throughout shift. Will continue to monitor until patient care is endorsed to oncoming dayshift nurse.
--- NOTE | 2018-10-31 07:30 | NUR ---
Opening note Patient resting in bed at this time, A/Ox4, no complaints of pain. No SOB. No nausea, no vomiting, afebrile. IV patent, intact, and infusing fluids as ordered. No adverse side effects noted. On safety, and aspiration precautions, reinforced. Bed in lowest position, bed alarm on, 3 side rails up. Educated patient on the call light system, call light within reach. patient in stable condition. Will continue to monitor.
[2018-10-31 08:21] VITALS: BP_SYST 118
[2018-10-31] MEDS: DOCUSATE SODIUM 250 MG CAPSULE PO SCH ×2 (09:00→20:16)
--- NOTE | 2018-10-31 09:30 | NUR ---
Rounds Patient complained on back pain, pain medication given as ordered, no adverse side effects noted. Wound care done as ordered. No bleeding, no drainage. IV patent, and intact. Butt catheter draining to gravity, yellow, clear urine. Patient in stable condition.
--- NOTE | 2018-10-31 11:52 | NUR ---
Rounds Patient resting in bed, no complaints of pain. Iv patent, intact, and infusing fluids as ordered. No SOB, afebrile. Butt catheter draining to gravity with yellow clear urine.
[2018-10-31] MEDS ORDERED: BISACODYL 10 MG/SUPPOSITORY RC PRN (12:00)
[2018-10-31] MEDS ORDERED: BISACODYL 5 MG TABLET.DR (DULCOLAX) PO PRN (12:00)
[2018-10-31] MEDS ORDERED: BISACODYL 5 MG TABLET.DR (DULCOLAX) PO ONE (12:00)
[2018-10-31] MEDS ORDERED: CHOLECALCIFEROL (VITAMIN D3) 2,000 UNIT TABLET PO ONE (12:15)
[2018-10-31] MEDS ORDERED: MULTIVITAMINS TAB 1 TABLET PO ONE (12:15)
[2018-10-31] MEDS: SOD FERRIC GLUC COMPLEX/SUC 125 MG in NS 100 ML IV SCH (12:57)
--- NOTE | 2018-10-31 13:35 | NUR ---
Medications Patient refusing stool softener stating "it does not work, I never know when it is going to happen, when I am going to have bowel movement. I wont be able to control it" Educated patient on the importance, patient still refusing. Offered Dulcolax suppository, patient states that it does not work and does not want it. Patient complained of pain, medication given as ordered. No adverse side effects noted. Patient in stable condition at this time.
[2018-10-31 14:53] VITALS: BP_SYST 109
--- NOTE | 2018-10-31 15:27 | NUR ---
Rounds Patient resting in bed at this time, No SOB, no complaints of pain. IV patent, intact, and infusing as ordered. Butt catheter draining yellow, clear urine at this time. Patient in stable condition.
--- NOTE | 2018-10-31 16:43 | NUR ---
Rounds Patient resting in bed, No SOB, no complaints of pain. Iv patent, intact, and infusing fluids as ordered. Patient in stable condition.
[2018-10-31 17:16] VITALS: BP_SYST 117
[2018-10-31 19:00] VITALS: BP_SYST 130
--- NOTE | 2018-10-31 19:00 | NUR ---
change of shift.pt.presents challenges.pt.presents affect;aggressive.pt.presents paraplegia.pt.capable to mobilize;utilizing wheel chair.pt's own equipment.@bedside.no isolation status confirmed. pt.presents tierney catheter;chronic status:may or may not require hand irrigation.pt.presents iv fluids via peripheral line;location;rt.hand. diet status;regular;general status stable,.respiratory status stable;@room air;unlabored.call light/telephone w/in the reach of the pt.
[2018-10-31 20:00] VITALS: BP_SYST 130
--- NOTE | 2018-10-31 20:00 | NUR ---
pt.assessed.v/s assessed;values w/in normal limits.pt.had requested benadryl ivp.i have admninistered the benadryl;25mg ivp;via the peripheral line.i have apprised the pt.that snacks/beverages are available w/in the shift.no requests posited @this hour.i have assessed the iv access;intact;patent.iv fluids infusing.i have assessed the tierney catheter intact;patent;urine content present;absent clots/hematuria.pt's wheel chair w/in reach;snacks upon the pt's over-bed table.general status stable.respiratory status stable@room air.call light/telephone w/in the reach of the pt.
[2018-10-31] MEDS: ENOXAPARIN SODIUM 40 MG/0.4 ML SYRINGE SUBCUT SCH (20:17)
--- NOTE | 2018-10-31 20:30 | NUR ---
pt.had requested accompaniament;assist to smoke.i have accompanied;assisted the pt.to the smoking area;sdch.
--- NOTE | 2018-10-31 20:45 | NUR ---
i have assisted the pt's return to the room post smoking.i apprised the pt. of the medications due@2100p.pt.has refused the administration of the 2100pmedications:colace,heparin.no requests posited @this hour.
--- NOTE | 2018-10-31 22:00 | NUR ---
pt.assessed.pt.presents quiescent affect;calm.resting.pt.had removed the iv access.to be re-established.pt has requested dilaudid;pain ivp.general status stable,respiratory status stable.tierney catheter assessed;intact;patent;urine content present.pt.capable to reposition self.call light/telephone w/in the reach of the pt.
--- NOTE | 2018-10-31 22:15 | NUR ---
ascencion/aleksandr has re-established the iv access.ascencion has administered the dilaudid;2mg ivp.i am to f/u re;pain medication efficacy per pain mgx protocol.
[2018-10-31] MEDS: TEMAZEPAM 15 MG CAPSULE PO PRN (23:42)
--- NOTE | 2018-10-31 23:45 | NUR ---
pt.assessed.pt.had requested medication;sleep.i have administered restoril;30mg po.no additional requests posited @this hour. iv access assessed;intact;patent;iv fluids infusing.
--- NOTE | 2018-11-01 00:30 | NUR ---
pt.assessed.pt.presents quiescent affect;clam,somnolent.iv access;intact;patent.i have administered zosyn;abx;ivpb;0000;midnight dose.general status stable.respiratory status stable.unlabored.tierney catheter;intact;patent;urine content present absent clots/hematuria.pt.capable to reposition self.call light/telephone w/in the reach of the pt.
[2018-11-01 01:26] VITALS: BP_SYST 135
--- NOTE | 2018-11-01 02:00 | NUR ---
pt.assessed.pt.presents quiescent affect;calm,somnolent.iv access;intact;patent;iv fluids infusing.tierney catheter;intact;patent; urine content present;absent clots;hematuria.general status stable.respiratory status stable.unlabored.pt.capable to reposition self.call light/telephone w/in the reach of the pt.
--- NOTE | 2018-11-01 04:00 | NUR ---
pt.assessed.pt.presents quiescent affect;calm,somnolent.iv fluids infusing,tierney catheter intact;patent;urine content presents;absent clots/hematuria.general status stable.respiratory status stable.pt.capable to reposition self.call light/telephone w/in the reach of the pt.
[2018-11-01] MEDS: HYDROmorphone 1 MG INJ. 1 MG/ML AMPUL IVP PRN ×5 (04:31→21:35)
--- NOTE | 2018-11-01 04:35 | NUR ---
pt.has requested medication;pain.i have administered dilaudid;1mg ivp.to f/u re:pain medication efficacy per pain mgx protocol. no additional requests posited @this hour.
[2018-11-01] MEDS: PIPERACILLIN/TAZO 3.375 GM in NS 50 ML IV SCH ×4 (05:35→23:32)
[2018-11-01] MEDS: NACL 0.9% 1,000 ML IV SCH ×3 (05:40→23:39)
[2018-11-01] MEDS: DIPHENHYDRAMINE INJ 50 MG/ML VIAL IVP PRN ×4 (05:47→23:40)
--- NOTE | 2018-11-01 06:15 | NUR ---
pt.assessed.pt.assisted w/the flushing of the tierney catheter.supplies provided to the pt.i have changed the iv fluids bag.i have administered zosyn;abx;ivpb:0600a dose.i pt.requested benadryl;i have administered benadryl;25mg ivp.pt.had inquired when the subsequent dose of dilaudid is due.i have apprised the pt.that i have administered the dialudid;1mg ivp @0430a and the subsequent dose;if necessary is due@0830a.pt.capable to reposition self.wheel chair w/in the pt's reach.no additional requests posited @this hour.call light/telephone w/in the reach of the pt.
--- NOTE | 2018-11-01 07:35 | NUR ---
Opening Note: Patient in bed resting. Patient denies intolerable pain or discomfort. Breathing is even and unlabored on room air, no distress noted. IV patent and intact running IVF per MD orders, no signs of infiltration noted. Butt catheter patent and intact with visible urine output. Safety precautions in place; bed in lowest position, wheels locked, side rails x3, bed alarm activated and call light within reach. No needs at this time. Will continue to monitor.
[2018-11-01 07:58] LABS: BASOPHILS # (AUTO) 0.1 K/uL (0.0-0.2); BASOPHILS % (AUTO) 1.4 % (0.0-2.0); EOSINOPHILS # (AUTO) 0.4 K/uL (0.0-0.4); EOSINOPHILS % (AUTO) 4.3 % (0.0-4.0); HEMOGLOBIN 8.6 g/dL (14.0-18.0); LYMPHOCYTES # (AUTO) 1.8 K/uL (1.0-5.5); LYMPHOCYTES % (AUTO) 19.8 % (20.5-51.5); MEAN CORPUSCULAR HEMOGLOBIN 24 pg (27-31); MEAN CORPUSCULAR HGB CONC 32 % (32-36); MEAN CORPUSCULAR VOLUME 75 fL (79.0-98.0); MONOCYTES # (AUTO) 0.9 K/uL (0.0-1.0); MONOCYTES % (AUTO) 10.3 % (1.7-9.3); NEUTROPHILS # (AUTO) 5.8 K/uL (1.8-7.7); NEUTROPHILS % (AUTO) 64.2 % (40.0-70.0); PLATELET COUNT (AUTO) 730 K/uL (130-430); RED BLOOD CELL COUNT(AUTO) 3.54 MIL/uL (4.2-6.2); RED CELL DISTRIBUTION WIDTH 23.4 % (9.0-15.0); WHITE BLOOD COUNT (AUTO) 9.1 K/uL (4.8-10.8)
[2018-11-01 08:01] LABS: HEMATOCRIT 26.6 % (36-54)
[2018-11-01 08:03] LABS: ALBUMIN 1.8 g/dL (3.4-4.8); CALCIUM 8.4 mg/dL (8.4-11.0); CREATININE 0.93 mg/dL (0.55-1.30); FREE T4 (FREE THYROXINE) 0.6 ng/dL (0.6-1.6); POTASSIUM 4.2 mmol/L (3.5-5.1); THYROID STIMULATING HORMONE 2.07 uIu/mL (0.34-4.82); TOTAL BILIRUBIN 0.2 mg/dL (0.0-1.0)
--- NOTE | 2018-11-01 08:38 | NUR ---
Nutrition Update Vishal Scale 17 noted. Pt admitted for post-op infection. Diet: regular, high fiber BMI: 19.9 RD to follow per nutrition care standards.
[2018-11-01 09:00] VITALS: BP_SYST 118
[2018-11-01] MEDS: DOCUSATE SODIUM 250 MG CAPSULE PO SCH ×2 (09:00→21:00)
[2018-11-01] MEDS: MULTIVITAMINS TAB 1 TABLET PO SCH ×2 (09:05→21:33)
[2018-11-01] MEDS: CHOLECALCIFEROL (VITAMIN D3) 2,000 UNIT TABLET PO SCH (09:05)
--- NOTE | 2018-11-01 10:01 | NUR ---
Rounds: Patient in bed resting, no distress noted. Will continue to monitor.
[2018-11-01] MEDS: SOD FERRIC GLUC COMPLEX/SUC 125 MG in NS 100 ML IV SCH (11:32)
--- NOTE | 2018-11-01 12:02 | NUR ---
Rounds: Patient in bed resting. Patient denies pain and discomfort. Breathing is even and unlabored with no distress noted. IV Ferrlecit infusing with no signs of infiltration. Morning medications tolerated well. Safety precautions in place and call light within reach. Will continue to monitor.
[2018-11-01 13:03] VITALS: BP_SYST 118
--- NOTE | 2018-11-01 14:03 | NUR ---
Rounds: Patient in bed resting. No distress noted. Will continue to monitor.
--- NOTE | 2018-11-01 14:53 | NUR ---
Dietitian Recommendations: 1. Add Ensure Enlive Vanilla TID w/ each meal Please refer to Nutrition Assessment for details. ANITA RUBI
--- NOTE | 2018-11-01 16:00 | NUR ---
Rounds: Patient in bed resting. Patient denies pain and discomfort. Breathing is even and unlabored with no distress noted. IV infusing with no signs of infiltration. Safety precautions in place and call light within reach. Will continue to monitor.
--- NOTE | 2018-11-01 16:59 | NUR ---
CONSULTATION PAGED REASON FOR CONSULTATION:WOUND INFECTION WAS CONSULT CALLED?Y PERSON WHO WAS NOTIFIED:BJ CONSULTING PHYSICIAN:PRISCILLA KEY UNIVERSITY COUNSELOR SPECIALTY:ID UNIVERSITY COUNSELOR PHONE NUMBER:[phone] REQUESTING PHYSICIAN:BUBBA ELDER
--- NOTE | 2018-11-01 17:08 | NUR ---
CONSULTATION PAGED REASON FOR CONSULTATION:DEPRESSION WAS CONSULT CALLED?Y PERSON WHO WAS NOTIFIED:RAIZA CONSULTING PHYSICIAN:APURVA MATUTE FLOWER ARRANGER SPECIALTY:PSYCH FLOWER ARRANGER PHONE NUMBER:[phone] REQUESTING PHYSICIAN:[facility]
[2018-11-01 17:30] VITALS: BP_SYST 139
[2018-11-01] MEDS ORDERED: NICOTINE 21 MG/24 HR PATCH.TD24 TD ONE (17:30)
--- NOTE | 2018-11-01 18:41 | NUR ---
Closing Note: Patient in bed resting. Patient denies pain and discomfort. Breathing is even and unlabored on room air, no distress noted. IV patent and intact running IVF per MD orders, no signs of infiltration noted. Butt catheter patent and intact with visible urine output. Safety precautions in place; bed in lowest position, wheels locked, side rails x3, bed alarm activated and call light within reach. All needs met. Will endorse plan of care to NOC, nurse.
[2018-11-01 19:00] VITALS: BP_SYST 115
--- NOTE | 2018-11-01 19:00 | NUR ---
change of shift.pt.presents agitated affect.pt.requesting to smoke.will attempt to accompany pt.i have stated to the pt. that nsg is w/in change of shift.i will attempt to accompany the pt.w/in a few minutes.
--- NOTE | 2018-11-01 19:30 | NUR ---
ellen;estelle gas accompanid th pt.off unt to smoke.
[2018-11-01 20:00] VITALS: BP_SYST 115
--- NOTE | 2018-11-01 20:00 | NUR ---
pt.has returned to the room post smoking.i have assessed the v/s values w/in normal limits.i have apprised the pt.that i may provide snacks/beverages w/in the shift.pt.has requested;water,juice,sandwich.i have provided the food items.
[2018-11-01] MEDS: ENOXAPARIN SODIUM 40 MG/0.4 ML SYRINGE SUBCUT SCH (21:00)
--- NOTE | 2018-11-01 21:30 | NUR ---
2100pmedications administered;pt.had requested dilaudid;pain.i have administered the dilaudid;to f/u re;pain medication efficacy per pain mgx protocol.pt.had requested medication;sleep i have administered restoril;30mg po.pt.had refusd th administration: lovenox/colace.
[2018-11-01] MEDS: TEMAZEPAM 15 MG CAPSULE PO PRN (21:34)
--- NOTE | 2018-11-01 22:00 | NUR ---
pt.assessed.pt.presents quiescent affect;calm,viewing tv programming.pt had requested snacks/water;juice.i have provided the snack items.
--- NOTE | 2018-11-01 23:45 | NUR ---
pt.had requested the benadryl.i have administered benadry:25mg ivp.i have changed th iv fluids bag.i have administered zosyn;abx;ivpb midnight dose.
--- NOTE | 2018-11-02 00:15 | NUR ---
pt.assessed.v/s assessed;values w/in normal limits.no requests posited @this hour.iv fluids infusing.pt.capable to reposition self. call light/telephone w/in the reach of the pt.
[2018-11-02] MEDS: HYDROmorphone 1 MG INJ. 1 MG/ML AMPUL IVP PRN ×4 (01:24→14:25)
[2018-11-02] MEDS: ACETAMINOPHEN 325 MG TABLET PO PRN ×2 (01:25→08:30)
--- NOTE | 2018-11-02 01:30 | NUR ---
pt.had requested medication;pain.i have administered dilaudid:1mg ivp.to f/u re;pain medication efficacy.pt.requested tylenol;headache.i have administered tylenol;650mg po per the pt's requests;headache.
--- NOTE | 2018-11-02 02:30 | NUR ---
pt.assessed pt.presents quiescent affect;calm,somnolent.pt.capable to reposition self.iv fluids infusing. tierney catheter intact;patent.call light/telephone w/in the reach of the pt.
[2018-11-02 02:48] VITALS: BP_SYST 122
--- NOTE | 2018-11-02 04:31 | NUR ---
i have attended to the tierney catheter ;measured emptied.
[2018-11-02] MEDS: DIPHENHYDRAMINE INJ 50 MG/ML VIAL IVP PRN ×2 (05:17→11:21)
[2018-11-02] MEDS: PIPERACILLIN/TAZO 3.375 GM in NS 50 ML IV SCH ×3 (05:18→17:05)
--- NOTE | 2018-11-02 06:27 | NUR ---
pt.assessed.pt.presents quiescent affect;calm somnolent.iv access assessed;intact;patent.iv fluids infusing. tierney catheter assessed ;intact;patent;urine content present.pt.refused wound care.general status stable. respiratory status stable.call light/telephone placed w/in the reach of the pt.
--- NOTE | 2018-11-02 07:17 | NUR ---
Opening Note received bedside SBAR report from overnight babysitter RN, patient resting in bed, no acute distress noted, patient reports pain is controlled at this time, tierney catheter draining to gravity, educated patient on use of call light and asked to call for assistance, patient verbalized understanding, call light in reach, educated patient on use of bed alarm for patient safety, refusing bed alarm, bed in low and locked position.
[2018-11-02 07:25] LABS: BASOPHILS # (AUTO) 0.1 K/uL (0.0-0.2); BASOPHILS % (AUTO) 0.9 % (0.0-2.0); EOSINOPHILS # (AUTO) 0.6 K/uL (0.0-0.4); EOSINOPHILS % (AUTO) 6.9 % (0.0-4.0); HEMATOCRIT 24.9 % (36-54); HEMOGLOBIN 8.3 g/dL (14.0-18.0); LYMPHOCYTES # (AUTO) 2.3 K/uL (1.0-5.5); LYMPHOCYTES % (AUTO) 25.8 % (20.5-51.5); MEAN CORPUSCULAR HEMOGLOBIN 25 pg (27-31); MEAN CORPUSCULAR HGB CONC 33 % (32-36); MEAN CORPUSCULAR VOLUME 74 fL (79.0-98.0); MONOCYTES # (AUTO) 0.9 K/uL (0.0-1.0); MONOCYTES % (AUTO) 10.7 % (1.7-9.3); NEUTROPHILS # (AUTO) 4.9 K/uL (1.8-7.7); NEUTROPHILS % (AUTO) 55.7 % (40.0-70.0); PLATELET COUNT (AUTO) 680 K/uL (130-430); RED BLOOD CELL COUNT(AUTO) 3.36 MIL/uL (4.2-6.2); RED CELL DISTRIBUTION WIDTH 23.7 % (9.0-15.0); RETICULOCYTE COUNT 1.2 % (0.5-1.5); WHITE BLOOD COUNT (AUTO) 8.8 K/uL (4.8-10.8)
[2018-11-02 07:33] LABS: CREATININE 0.71 mg/dL (0.55-1.30); POTASSIUM 4.3 mmol/L (3.5-5.1)
[2018-11-02 08:00] VITALS: BP_SYST 114
[2018-11-02] MEDS: MULTIVITAMINS TAB 1 TABLET PO SCH (08:29)
[2018-11-02] MEDS: CHOLECALCIFEROL (VITAMIN D3) 2,000 UNIT TABLET PO SCH (08:29)
[2018-11-02] MEDS: DOCUSATE SODIUM 250 MG CAPSULE PO SCH (08:34)
[2018-11-02] MEDS ORDERED: NICOTINE 21 MG/24 HR PATCH.TD24 TD SCH (09:00)
--- NOTE | 2018-11-02 09:45 | NUR ---
IV access swelling noted at IV catheter site, IV catheter removed, catheter intact, no bleeding, new IV catheter inserted to right forearm, 22G, flushes easily with blood return, patient tolerated well.
--- NOTE | 2018-11-02 10:30 | NUR ---
Discharge Planning: DCP faxed to [facility](f [phone] p [phone]) DCP to follow up. Addendum: 11/02/18 at 1611 by Alexandra Watts DP DCP spoke to Karlee at [facility](f [phone] p [phone]), pt accepted to [facility], transportation arranged by [facility] ([phone]) 5:30 P/U. Nurse made aware patient packet taken to nurse station.
--- NOTE | 2018-11-02 10:35 | NUR ---
Refuse Physical Therapy physical therapy at bedside, educated patient on purpose and procedure for physical therapy, patient verbalized understanding, patient refused physical therapy today.
[2018-11-02] MEDS: SOD FERRIC GLUC COMPLEX/SUC 125 MG in NS 100 ML IV SCH (12:23)
--- NOTE | 2018-11-02 12:31 | NUR ---
RN Rounds patient resting in bed, respirations even and unlabored on room air, patient reports pain is controlled at this time, no acute distress noted.
[2018-11-02 12:50] VITALS: BP_SYST 125
--- NOTE | 2018-11-02 14:25 | NUR ---
Wound Evaluation: Late note for 11/02/18 at 1425 secondary to patient care. Wound Consult ordered for Low Vishal Score. Patient evaluated for a low Vishal score of 17. Patient was awake, alert, oriented, and received in a Shell Bed with an IsoFlex MICHAEL mattress. Patient has Paraplegia, but is able to turn in bed. Recommend encourage and assist patient as needed with repositioning side to side only every 2 hours with pillow support. Elevate, off-load and float bilateral heels with pillows. Offload pressure areas with pillows for pressure re-distribution. Perform skin care and monitor skin integrity Q shift. Use moisture barrier cream on moisture susceptible areas QID and PRN for soiling. Skin assessment: 1. Right Lateral Hip: Scar tissue from a healed surgical incision, present on admission. Recommend: No dressing needed. Continue to monitor site every shift. 2. Right Lateral Hip, inferior to site 1: Healing surgical incision, present on admission. Incision is approximated, with sutures and 10 brennan. No odor, no drainage. Wound intact. Site not measured secondary to patient did not wish to continue with assessment. Recommend: Cover site with composite dressing for protection. Monitor site with dressing change q 24 hours, and when necessary for dressing soiling or dislodgment.
--- NOTE | 2018-11-02 14:34 | NUR ---
Physician Rounds/Wound care Dr. Maher at bedside examining patient, RN educated patient on purpose and procedure for wound care, patient verbalized understanding, wound care completed, patient tolerated well, no acute distress noted, patient reports pain is controlled during and after wound care, see MST shift assessment for wound care.
[2018-11-02 16:00] VITALS: BP_SYST 129
[2018-11-02 16:27] VITALS: BP_SYST 129
--- NOTE | 2018-11-02 16:33 | NUR ---
DC PLANNING: CM SPOKE WITH PATIENT AT BEDSIDE REGARDING DC PLANNING TO SNF. PATIENT WAS AGREEABLE TO SNF.
--- NOTE | 2018-11-02 16:54 | NUR ---
Called Report called [facility] , gave SBAR report to Al, informed him of oyster picker scheduled for [id number]
--- NOTE | 2018-11-02 16:57 | NUR ---
RN Rounds patient resting in bed, per patient he notified his family of transfer to [facility] and does not want RN to contact family, patient informed of berry picker scheduled for 1729, understanding verbalized.
--- NOTE | 2018-11-02 17:50 | NUR ---
Discharge patient provided with discharge packet and instructions for discharge to [facility], patient verbalized understanding, tierney catheter draining to gravity, IV catheter to right forearm 22G flushes easily with blood return, no acute distress noted, report given to [facility] ambulance, hospital ID band removed, plain ID band in place, all belongings sent with patient, patient transferred via gurney by S ambulance.
--- NOTE | 2018-11-03 11:40 | NUR ---
Crocheter: Late Entry PRIVATE BRANCH EXCHANGE SERVICE ADVISOR met with pt. bedside who stated he was doing ok. Pt. stated he has had some bad luck in and out of hospitals for the past week. He stated he is having trouble eliminating and that it is such an ordel. At times, he prefers not to eliminate. PRIVATE BRANCH EXCHANGE SERVICE ADVISOR asked him to bring this matter up to Dr. Crocker when he comes around today. Pt. stated his goal is to "Be done with infections and get my life back". Pt. stated he has a son who lives in [place] and is a Machinist/Machine Builder. Pt. said he lived with his son and family for about 6 months but it didn't work our. He has been homeless since. 2008 and has lived in a van, a car and then aother van where he currently lives. At night, he will park in [place] near a friend or when it is hot, he will park at the [address] on [facility] without getting hassled. PRIVATE BRANCH EXCHANGE SERVICE ADVISOR gave pt. an advanced directive and explained what it is. PRIVATE BRANCH EXCHANGE SERVICE ADVISOR also gave him a homeless packet, some other resources and stated she would mention his depressive feelings to the nurse in hopes of getting DrPercy to refer to [facility]. PRIVATE BRANCH EXCHANGE SERVICE ADVISOR also mentioned to Rn pts. difficulties to eliminate and at times, he will just hold it and then get impacted. PRIVATE BRANCH EXCHANGE SERVICE ADVISOR also assessed for suicidal feelings. Pt. stated he has wished for it all to end, but does not want to kill himself. When PRIVATE BRANCH EXCHANGE SERVICE ADVISOR told him about speaking to a dr. and perhaps he would benefit from anti-depression meds. he stated he is open to seeing Dr. He stated he does not want to go back to [facility] as he has done so in the past. PRIVATE BRANCH EXCHANGE SERVICE ADVISOR spoke to pts.' nurse Jenny to inform her of this issues pt. is facing re. depression and difficulty with his bowel movements. Jenny sated she would let dr. know. PRIVATE BRANCH EXCHANGE SERVICE ADVISOR also informed CM of pt. needs. PRIVATE BRANCH EXCHANGE SERVICE ADVISOR will remain available as needed.
== END 2018-11-02 17:50 | DRG 862 ==
LOC: SED 23:48 → STU 10-30 03:55 → SMU 10-30 08:28
PROVIDERS: ADMIT Internal Medicine; ATTEND Internal Medicine
DX: T81.41XA Infection following a procedure, superficial incisional surgical site, initial encounter (principal); A41.9 Sepsis, unspecified organism; E44.1 Mild protein-calorie malnutrition; G82.20 Paraplegia, unspecified; E87.1 Hypo-osmolality and hyponatremia; N39.0 Urinary tract infection, site not specified; L03.115 Cellulitis of right lower limb; Z68.1 Body mass index [BMI] 19.9 or less, adult; Z66 Do not resuscitate; Z60.2 Problems related to living alone; M54.9 Dorsalgia, unspecified; D64.9 Anemia, unspecified; J43.9 Emphysema, unspecified; G89.4 Chronic pain syndrome; E86.0 Dehydration; N31.9 Neuromuscular dysfunction of bladder, unspecified; K56.41 Fecal impaction; I70.90 Unspecified atherosclerosis; Z79.899 Other long term (current) drug therapy; Z90.49 Acquired absence of other specified parts of digestive tract; Z87.81 Personal history of (healed) traumatic fracture; Z59.0 Homelessness
CPT/HCPCS: 36415; 71045; 73552; 74018; 80048; 80053; 80061; 81000-TC; 83540-TC; 83550-TC; 83605; 84439; 84443-TC; 85025; 85044-TC; 87040-TC; 87081; 87086; 93005; 96365; 96368; 96375; 97112-GP; 99285; J1170; J1200; J1650; J2270; J2543; J2916; J3370; J7030

== ENCOUNTER 2018-11-04 21:39 | Inpatient (IN) | payer OTHER, MEDICAID ==
[~2018-11-04] VITALS: Ht 170.2 cm; Wt 58.1 kg
[2018-11-04 21:50] VITALS: BP_SYST 110
--- NOTE | 2018-11-04 21:50 | NUR ---
Patient to ER bed 1 to gown for evaluation. Side rails up.
--- NOTE | 2018-11-04 21:55 | NUR ---
Pt came in with 22g to right forearm. IV is patent and intact
--- NOTE | 2018-11-04 21:55 | NUR ---
BIB EMS FOR L FEMUR DEFORMITY. PT STATES THAT HE WAS YANKED OUT OF THE CAR BY ZIA LLAMAS. HOWEVER, PER FACILITY PT "THREW HIMSELF OUT OF THE CAR AND DRAGGED HIMSELF" PAIN IS 9/10. UPON OBSERVATION, DEFORMITY IS PRESENT ABOVE L KNEE. HX OF R LEG INFECTION. RECENTLY HOSPITALIZED FOR R FEMUR FRACTURE AND A BRODY WAS PLACED. CURRENTLY ON ABX. RECENTLY HAD GALLBLADDER SX WELL. DENIES N/V/D OR FEVER. NO OTHER COMPLAINTS/INJURIES NOTED. WILL CONT. TO MONITOR.
--- NOTE | 2018-11-04 22:13 | NUR ---
pt moved to bed 7
[2018-11-04] MEDS ORDERED: NACL 0.9% 1,000 ML IV ONE (22:54)
--- NOTE | 2018-11-04 22:57 | NUR ---
ER Dr. Lovelace at bedside examining patient.
[2018-11-04] MEDS ORDERED: MORPHINE 4 MG/ML INJ. SYRINGE IVP ONE (23:00)
[2018-11-04] MEDS ORDERED: DIPHENHYDRAMINE INJ 50 MG/ML VIAL IVP ONE (23:00)
--- NOTE | 2018-11-04 23:20 | NUR ---
SONIA Maher at bedside examining patient.
[2018-11-04 23:41] LABS: HEMATOCRIT 26.9 % (36-54); HEMOGLOBIN 8.7 g/dL (14.0-18.0); MEAN CORPUSCULAR HEMOGLOBIN 24 pg (27-31); MEAN CORPUSCULAR HGB CONC 32 % (32-36); MEAN CORPUSCULAR VOLUME 74 fL (79.0-98.0); RED BLOOD CELL COUNT(AUTO) 3.64 MIL/uL (4.2-6.2); RED CELL DISTRIBUTION WIDTH 23.7 % (9.0-15.0); WHITE BLOOD COUNT (AUTO) 17.5 K/uL (4.8-10.8)
[2018-11-04 23:56] LABS: PROTHROMBIN TIME 10.5 SECS (9.5-12.5)
--- NOTE | 2018-11-04 23:58 | NUR ---
# 18 FR Butt catheter with use of sterile technique. Immediate return of 365 cc clear urine noted. Bedside drainage bag placed below level of bladder. Urine sample collected and sent to lab. Pt tolerated procedure well.
[2018-11-05] LABS: PLATELET COUNT (AUTO) 849 K/uL (130-430)
[2018-11-05 00:02] LABS: ATYPICAL LYMPHOCYTES % 0 % (0-0); BAND % (MANUAL) 0 % (0-6); BASOPHILS % (MANUAL) 1 % (0-2); EOSINOPHILS % (MANUAL) 3 % (0-7); LYMPHOCYTES % (MANUAL) 10 % (20-46); METAMYELOCYTES % 0 % (0-0); MONOCYTES % (MANUAL) 6 % (0-11); MYELOCYTES % 0 % (0-0)
[2018-11-05 00:05] LABS: ALBUMIN 2.4 g/dL (3.4-4.8); CALCIUM 8.7 mg/dL (8.4-11.0); CREATININE 0.79 mg/dL (0.55-1.30); TOTAL BILIRUBIN 0.4 mg/dL (0.0-1.0)
--- NOTE | 2018-11-05 00:07 | NUR ---
End of life care decisions discussed with patient by Dr. Lovelace. Opportunity for questions and concerns addressed. Patient's code status is DNR paperwork completed and placed in chart.
--- NOTE | 2018-11-05 00:11 | NUR ---
Patient states he does not take any medication at home.
--- NOTE | 2018-11-05 00:12 | NUR ---
Patient will be admitted to care of Dr. Maher. Admitted to Telemetry unit. Will go to room 119 A. Belongings list completed. Summary report printed. Report will be given at bedside.
--- NOTE | 2018-11-05 00:12 | NUR ---
Transfer to Telemetry via ACLS protocol. Licensed nurse present. IV present no signs or symptoms of infiltration.
--- NOTE | 2018-11-05 00:20 | NUR ---
ADMISSION: The patient, VIPIN GRAY III, 53 y/o, M admitted by BUBBA LIU MD, TO ROOM 119 A, with the diagnosis of LEFT FEMUR FRACTURE ,was given written information regarding hospital policies, unit procedures and contact persons.
[2018-11-05 00:29] VITALS: BP_SYST 106
[2018-11-05 00:33] LABS: BILIRUBIN,URINE NEGATIVE (NEGATIVE); BLOOD, URINE TRACE (NEGATIVE); CLARITY/URINE CLEAR (CLEAR); COLOR,URINE YELLOW (YELLOW); GLUCOSE,URINE NEGATIVE (NEGATIVE); KETONES,URINE NEGATIVE (NEGATIVE); LEUKOCYTE ESTERASE ,URINE NEGATIVE (NEGATIVE); NITRITE, URINE NEGATIVE (NEGATIVE); PH,URINE 6.5 (5.0-8.0); PROTEIN URINE TRACE (NEGATIVE); UROBILINOGEN,URINE 0.2 (0.2-1.0)
[2018-11-05 00:36] LABS: WBC,URINE 0-3 /HPF (0-3)
[2018-11-05 00:37] LABS: BACTERIA,URINE FEW /HPF (None Seen)
--- NOTE | 2018-11-05 00:44 | NUR ---
Note: Patient is refusing a full skin assessment to be performed by this RN. Skin on left leg was assessed, photographs were taken prior to wound care and application of left knee immobilizer.
--- NOTE | 2018-11-05 00:56 | NUR ---
BELONGING LIST: PT HAS A AARON PACK AT BEDSIDE , PT STATED HE HAS A WALLET , CIGARETTE , OLAP DEVELOPER ETC , PT REFUSED RN TO CHECK IT OR REMOVE THE OLAP DEVELOPER AND CIGARTEE FROM BED SIDE , PT STATED SCREAMING AT THIS TIME . PRIMARY RN ALSO AT BEDSIDE .WILL NOTIFY C.N AND HOUSE SUP.
[2018-11-05] MEDS: HYDROmorphone 1 MG INJ. 1 MG/ML AMPUL IVP PRN ×5 (00:57→21:08)
[2018-11-05] MEDS ORDERED: NACL 0.9% 1,000 ML IV ONE (01:00)
[2018-11-05] MEDS ORDERED: METOPROLOL TARTRATE 25 MG TABLET PO ONE (01:00)
--- NOTE | 2018-11-05 01:00 | NUR ---
Refused belongings check: Patient is in possession of a black aaron pack, and is refusing ZACHARY Nayak and this RN to check it and take inventory of his belongings inside. Patient states that he has cigarettes and a teleradiologist inside of the aaron pack. Patient was told by ZACHARY Nayak that his cigarettes and teleradiologist must be kept at the nurse's station, and that he will be able to use them once he is accompanied outside to the designated smoking area; however, patient is yelling and refusing to have his cigarettes and teleradiologist removed from bedside. Security currently at bedside advising patient to not smoke while inside the hospital.
[2018-11-05] MEDS ORDERED: AMPICILLIN SODIUM/SULBACTAM NA 3 GM VIAL ONE (01:06)
--- NOTE | 2018-11-05 01:27 | NUR ---
Refused EKG: RT at bedside to performed ordered EKG. Patient is refusing despite being provided education regarding indications and side effects.
--- NOTE | 2018-11-05 01:40 | NUR ---
CONSULTATION PAGED/CALLED Reason for Consultation: LEFT FEMUR FX Person Who was Notified: JUSTO Consulting Physician: JUAQUIN GONZALEZ DOCTOR HANES IS AUTOMOBILE BUMPER STRAIGHTENER Forging Engineer Specialty: ORTHO Ordering Physician: NOE
--- NOTE | 2018-11-05 01:40 | NUR ---
CONSULTATION PAGED/CALLED Reason for Consultation: ELEVATED HEART RATE Person Who was Notified: JUSTO Consulting Physician: ERNESTO Cue Selector Specialty: CARDIO Ordering Physician: NOE
[2018-11-05] MEDS: AMPICILLIN SODIUM/SULBACTAM NA 3 GM in NS 100 ML IV SCH ×5 (01:47→23:37)
[2018-11-05 06:08] VITALS: BP_SYST 94
--- NOTE | 2018-11-05 06:09 | NUR ---
Closing note: Patient is resting in bed, no distress. IV fluids infusing well. Butt catheter draining to gravity as ordered. All needs met. Safety, fall precautions observed. Will endorse care to dayshift RN.
--- NOTE | 2018-11-05 07:56 | NUR ---
Opening Note Report received from Bahman GREENE shift nurse. Patient is currently sleeping in bed, however, is arousable. Patient is refusing to be assessed at the moment. LLE is in an immobilizer. Pedal pulse is palpable. Patient unable able to move BLE, he is paraplegic. IV is on the RFA 22g, running NS@100. Call light is within reach and bed is in the lowest position. Will continue to monitor.
[2018-11-05 09:26] VITALS: BP_SYST 104
--- NOTE | 2018-11-05 10:13 | NUR ---
Rounds Patient pulled of his LLE immobilizer and is on his wheelchair stating that he wants to go out and smoke. Patient was educated on the and made aware that it is dangerous for him to move is LLE and have the immobilizer off. Patient also advised that he needs to be accompanied outside to smoke.
[2018-11-05 10:18] LABS: BASOPHILS # (AUTO) 0.1 K/uL (0.0-0.2); BASOPHILS % (AUTO) 0.6 % (0.0-2.0); EOSINOPHILS # (AUTO) 0.1 K/uL (0.0-0.4); EOSINOPHILS % (AUTO) 0.9 % (0.0-4.0); HEMOGLOBIN 7.3 g/dL (14.0-18.0); LYMPHOCYTES # (AUTO) 1.8 K/uL (1.0-5.5); LYMPHOCYTES % (AUTO) 17.8 % (20.5-51.5); MEAN CORPUSCULAR HEMOGLOBIN 25 pg (27-31); MEAN CORPUSCULAR HGB CONC 33 % (32-36); MEAN CORPUSCULAR VOLUME 74 fL (79.0-98.0); MONOCYTES # (AUTO) 1.1 K/uL (0.0-1.0); MONOCYTES % (AUTO) 10.8 % (1.7-9.3); NEUTROPHILS # (AUTO) 7.1 K/uL (1.8-7.7); PLATELET COUNT (AUTO) 680 K/uL (130-430); RED BLOOD CELL COUNT(AUTO) 2.97 MIL/uL (4.2-6.2); RED CELL DISTRIBUTION WIDTH 24.1 % (9.0-15.0); WHITE BLOOD COUNT (AUTO) 10.1 K/uL (4.8-10.8)
[2018-11-05 10:24] LABS: HEMATOCRIT 22.3 % (36-54)
[2018-11-05 10:28] LABS: CREATININE 0.62 mg/dL (0.55-1.30); POTASSIUM 3.8 mmol/L (3.5-5.1)
[2018-11-05 10:47] LABS: NEUTROPHILS % (AUTO) 69.9 % (40.0-70.0)
--- NOTE | 2018-11-05 10:58 | NUR ---
CONSULTATION PAGED REASON FOR CONSULTATION:LEFT FEMUR FX WAS CONSULT CALLED?Y PERSON WHO WAS NOTIFIED:RITA CONSULTING PHYSICIAN:IRA LAGUNA METAL SPRAYING MACHINE OPERATOR FOR JUAQUIN KAMARA ROD AND TUBE STRAIGHTENER SPECIALTY:ORTHO ROD AND TUBE STRAIGHTENER PHONE NUMBER:[phone] REQUESTING PHYSICIAN:BUBBA ELDER
--- NOTE | 2018-11-05 11:25 | NUR ---
RN Note Patient when outside to smoke accompanied by the VP INTEGRITY.
[2018-11-05 12:31] VITALS: BP_SYST 109
--- NOTE | 2018-11-05 12:32 | NUR ---
MD Rounds Dr. Mcdonnell examined the patient at the bedside. instructed the patient to keep the LLE immobilizer in place. Per Dr. Mcdonnell, Dr. Hugo will come and evaluate the patient tonight.
--- NOTE | 2018-11-05 14:18 | NUR ---
Wound Care Changed the dressing on the left hip surgical incisions. The first incision is completely closed. The second incision is slightly red in color and is stapled and sutured. No drainage from either site observed. Covered both incisions with occlusive dressings.
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
--- NOTE | 2018-11-05 16:11 | NUR ---
Pain med Medicated the patient with Dilaudid for 7/10 generalized pain. Will reassess.
[2018-11-05] MEDS: DIPHENHYDRAMINE INJ 50 MG/ML VIAL IVP PRN ×2 (16:40→23:42)
[2018-11-05 16:45] VITALS: BP_SYST 112
[2018-11-05] MEDS: SOD FERRIC GLUC COMPLEX/SUC 125 MG in NS 100 ML IV SCH (17:11)
--- NOTE | 2018-11-05 17:30 | NUR ---
IV insertion Inserted 20g IV on the RFA using aseptic technique. Patient tolerated well.
--- NOTE | 2018-11-05 18:53 | NUR ---
Closing Note Patient is sleeping in bed. LLE immobilizer is in place. LE pedal pulse is palpable. IV is on the RFA 22g, SL. Call light is within reach and bed is in the lowest position. Will endorse care to the oncoming nurse.
[2018-11-05 19:45] VITALS: BP_SYST 111
--- NOTE | 2018-11-05 19:45 | NUR ---
INITIAL NOTE AT INITIAL ASSESSMENT, PATIENT IS RESTING IN BED, STABLE, NO SIGNS OF RESPIRATORY DISTRESS. PATIENT VERBALIZES CHRONIC PAIN, PRN MEDICATION WILL BE GIVEN ONCE AVAILABLE TO GIVE PER MD ORDERS. PATIENT SUCCESSFULLY DEMONSTRATES CORRECT USAGE OF CALL LIGHT. BED IS LOCKED, ALARMED, AND AT THE LOWEST LEVEL. FALL AND SAFETY PRECAUTIONS WILL BE TAKEN THROUGHOUT THE SHIFT.
[2018-11-05] MEDS: MULTIVITAMINS TAB 1 TABLET PO SCH (21:09)
--- NOTE | 2018-11-05 21:45 | NUR ---
PAIN NOTE PRN MEDICATION FOR PATIENT'S PAIN COMPLAINT WAS EFFECTIVE, PATIENT VERBALIZES TOLERABLE PAIN. AT THIS TIME, HE IS RESTING IN BED WATCHING TV, STABLE, NO SIGNS OF RESPIRATORY DISTRESS. CALL LIGHT WITHIN REACH. BED IS LOCKED, ALARMED, AND AT THE LOWEST LEVEL.
--- NOTE | 2018-11-05 23:45 | NUR ---
NOTE PATIENT OFFERED SNACKS BEFORE HIS DIET WILL BE CHANGED TO NPO AT MIDNIGHT, PATIENT EATS JELLOS AND HAS SOME WATER. HE IS STABLE, NO SIGNS OF RESPIRATORY DISTRESS. CALL LIGHT WITHIN REACH. BED IS LOCKED, ALARMED, AND AT THE LOWEST LEVEL.
--- NOTE | 2018-11-06 | NUR ---
NPO NOTE PATIENT HAS NOW BEEN PLACED ON NPO STATUS, HE VERBALIZES UNDERSTANDING THAT HE IS NOT TO TAKE ANYTHING BY MOUTH IN PREPARATION FOR POSSIBLE SURGERY IN THE DAYTIME. PATIENT'S BEDSIDE TABLE HAS BEEN CLEARED OF ALL FOOD AND BEVERAGES, NPO CONE PLACED AT BEDSIDE FOR REMINDER. SERA BALES AND CHARGE NURSE DARIN AWARE. HE IS STABLE, NO SIGNS OF RESPIRATORY DISTRESS. CALL LIGHT WITHIN REACH. BED IS LOCKED, ALARMED, AND AT THE LOWEST LEVEL.
[2018-11-06 00:32] VITALS: BP_SYST 104
[2018-11-06] MEDS: HYDROmorphone 1 MG INJ. 1 MG/ML AMPUL IVP PRN ×7 (01:08→21:36)
--- NOTE | 2018-11-06 01:45 | NUR ---
WOUND CARE NOTE PATIENT IS MEDICATED FOR WOUND CARE. WOUND CARE PERFORMED FOR PATIENT'S RIGHT POST OP INCISION PER PROTOCOL, HE TOLERATED WELL. HE IS REPOSITIONED FOR COMFORT, STABLE, NO SIGNS OF RESPIRATORY DISTRESS. CALL LIGHT WITHIN REACH. BED IS LOCKED, ALARMED, AND AT THE LOWEST LEVEL.
--- NOTE | 2018-11-06 03:45 | NUR ---
NOTE HE IS SLEEPING, NO SIGNS OF RESPIRATORY DISTRESS. CALL LIGHT WITHIN REACH. BED IS LOCKED, ALARMED, AND AT THE LOWEST LEVEL.
--- NOTE | 2018-11-06 04:45 | NUR ---
NOTE PATIENT IS SLEEPING, STABLE, NO SIGNS OF RESPIRATORY DISTRESS. CALL LIGHT WITHIN REACH. BED IS LOCKED, ALARMED, AND AT THE LOWEST LEVEL.
[2018-11-06] MEDS: ONDANSETRON HCL 4 MG/2 ML VIAL IVP PRN (05:12)
[2018-11-06] MEDS: AMPICILLIN SODIUM/SULBACTAM NA 3 GM in NS 100 ML IV SCH ×3 (05:12→17:35)
--- NOTE | 2018-11-06 06:10 | NUR ---
CLOSING NOTE PATIENT HAS BEEN KEPT NPO SINCE MIDNIGHT FOR POSSIBLE AM PROCEDURE. AT THIS TIME, HE IS RESTING IN BED, STABLE, NO SIGNS OF RESPIRATORY DISTRESS. CALL LIGHT WITHIN REACH. BED IS LOCKED, ALARMED, AND AT THE LOWEST LEVEL. FALL, SAFETY, AND RESPIRATORY PRECAUTIONS HAVE BEEN TAKEN THROUGHOUT THE SHIFT. WILL CONTINUE TO MONITOR UNTIL SHIFT REPORT IS GIVEN AT BEDSIDE TO AM NURSE.
[2018-11-06 06:29] LABS: BASOPHILS # (AUTO) 0.1 K/uL (0.0-0.2); BASOPHILS % (AUTO) 0.8 % (0.0-2.0); EOSINOPHILS # (AUTO) 0.2 K/uL (0.0-0.4); LYMPHOCYTES # (AUTO) 2.2 K/uL (1.0-5.5); LYMPHOCYTES % (AUTO) 20.4 % (20.5-51.5); MEAN CORPUSCULAR HEMOGLOBIN 24 pg (27-31); MEAN CORPUSCULAR HGB CONC 33 % (32-36); MEAN CORPUSCULAR VOLUME 74 fL (79.0-98.0); MONOCYTES # (AUTO) 1.2 K/uL (0.0-1.0); MONOCYTES % (AUTO) 11.6 % (1.7-9.3); PLATELET COUNT (AUTO) 591 K/uL (130-430); RED BLOOD CELL COUNT(AUTO) 2.61 MIL/uL (4.2-6.2); RED CELL DISTRIBUTION WIDTH 23.8 % (9.0-15.0); WHITE BLOOD COUNT (AUTO) 10.7 K/uL (4.8-10.8)
[2018-11-06 06:41] LABS: CALCIUM 7.8 mg/dL (8.4-11.0); CREATININE 0.52 mg/dL (0.55-1.30); POTASSIUM 3.5 mmol/L (3.5-5.1)
--- NOTE | 2018-11-06 07:54 | NUR ---
Opening Note Report received from [facility] shift nurse. Patient is resting in bed. Alert and oriented x 4. Currently NPO for surgery today with Dr. Hugo. Iv is on the RFA 22g, SL. Butt cath is in place draining, yellow urine. Call light is within reach and bed is in the lowest position. Will continue to monitor.
[2018-11-06 08:00] VITALS: BP_SYST 90
[2018-11-06 08:08] LABS: HEMATOCRIT 19.2 % (36-54); HEMOGLOBIN 6.3 g/dL (14.0-18.0)
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
--- NOTE | 2018-11-06 08:14 | NUR ---
Called Called Dr. Maher for critical Hgb 6.3 and Hct 19.2. Message left with Idalia.
[2018-11-06 08:32] LABS: NEUTROPHILS % (AUTO) 65.2 % (40.0-70.0)
[2018-11-06] MEDS: D5/0.45 NS 1,000 ML IV SCH ×2 (09:16→15:17)
[2018-11-06] MEDS: MULTIVITAMINS TAB 1 TABLET PO SCH ×2 (09:16→20:41)
--- NOTE | 2018-11-06 09:21 | NUR ---
Pain med Medicated the patient with Dilaudid 1 mg for the indicated pain scale.
--- NOTE | 2018-11-06 10:28 | NUR ---
MD rounds Dr. Maher is examining the patient at the bedside. Orders for blood transfusion received
[2018-11-06] MEDS: DIPHENHYDRAMINE INJ 50 MG/ML VIAL IVP PRN ×2 (10:45→21:00)
--- NOTE | 2018-11-06 10:47 | NUR ---
RN Note Patient is refusing to have IV fluids running.
--- NOTE | 2018-11-06 12:02 | NUR ---
BT INITIATION: Consent signed per patient agreeing to administration of blood. Blood has been type and crossmatched. Blood sent from blood bank. Information on unit of blood checked against patient wristband at bedside by two nurses. All information matches. Patient or responsible republican informed of potential complications associated with blood transfusion. Informed of possible transfusion reaction symptoms. Aware of need to notify nurse at once of itching, shortness of breath, flushing, feeling of impending doom, or other symptoms not previously present. Vital signs taken within 5 minutes prior to initiation of transfusion. RN will remain with patient for first 15 minutes of transfusion at which time vital signs will be re-assessed.
[2018-11-06 12:35] VITALS: BP_SYST 92
--- NOTE | 2018-11-06 13:32 | NUR ---
Pain med Medicated the patient with Dilaudid 1mg for the indicated pain scale.
--- NOTE | 2018-11-06 14:07 | NUR ---
Dietitian Recommendations * Consider advance diet if/when medically appropriate (regular, high fiber diet, Ensure Enlive BID) WARREN, RD Please refer to Nutrition Assessment for details. Addendum: 11/06/18 at [address] Amended: Links added.
--- NOTE | 2018-11-06 14:37 | NUR ---
MD Rounds Dr. Rodriguez spoke with the patient at the bedside. Anesthesia consent was signed
[2018-11-06] MEDS: SOD FERRIC GLUC COMPLEX/SUC 125 MG in NS 100 ML IV SCH (15:10)
--- NOTE | 2018-11-06 15:59 | NUR ---
Tierney cath care Patient stated that he uses a tierney cath chronically. . Patient requested that his tierney be declotted. Patient was getting agitated and was about to pull his tierney out. Aspirated a few clots from the catheter.
--- NOTE | 2018-11-06 16:24 | NUR ---
Rounds Patient is requesting pain med. Made him aware that it is too early.
[2018-11-06 16:31] VITALS: BP_SYST 90
--- NOTE | 2018-11-06 16:56 | NUR ---
DC Planning: Plan to surgery for ORIF today.
--- NOTE | 2018-11-06 18:07 | NUR ---
Closing Note Patient is having dinner in bed. Will have sx by Dr. Hugo tomorrow at 1030.. IV is on the rfa 22g. Patient has been refusing IV fluids. Butt cath is in place. Call light is within reach and bed is in the lowest position. Will endorse care to the oncoming nurse.
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
--- NOTE | 2018-11-06 18:56 | NUR ---
Paged Dr. Maher s/w Idalia
--- NOTE | 2018-11-06 19:45 | NUR ---
INITIAL NOTE AT INITIAL ASSESSMENT, PATIENT IS RESTING IN BED, STABLE, NO SIGNS OF RESPIRATORY DISTRESS. PATIENT VERBALIZES TOLERABLE PAIN. PATIENT SUCCESSFULLY DEMONSTRATES CORRECT USAGE OF CALL LIGHT. BED IS LOCKED, ALARMED, AND AT THE LOWEST LEVEL. FALL AND SAFETY PRECAUTIONS WILL BE TAKEN THROUGHOUT THE SHIFT.
[2018-11-06 20:00] VITALS: BP_SYST 111
[2018-11-06] MEDS: TEMAZEPAM 15 MG CAPSULE PO SCH (20:41)
--- NOTE | 2018-11-06 21:45 | NUR ---
PAIN NOTE PRN MEDICATION FOR PATIENT'S PAIN COMPLAINT AT THIS TIME. HE IS RESTING IN BED WATCHING TV, STABLE, NO SIGNS OF RESPIRATORY DISTRESS. CALL LIGHT WITHIN REACH. BED IS LOCKED, ALARMED, AND AT THE LOWEST LEVEL.
--- NOTE | 2018-11-06 22:05 | NUR ---
PATIENT REFUSES SHAHID SECUREMENT PATIENT'S SHAHID IS NOTED TO BE UNSECURED. DESPITE SAFETY EDUCATION, AND EDUCATION ABOUT POSSIBLE IMPLICATIONS FROM NOT HAVING HIS SHAHID SECURED ONTO HIS LEG, PATIENT REFUSES TO HAVE SHAHID SECURED. WILL CONTINUE TO ENCOURAGE. HIS SHAHID CATHETER IS PATENT AND DRAINING BY GRAVITY.
[2018-11-06] MEDS ORDERED: NICOTINE 21 MG/24 HR PATCH.TD24 TD SCH (23:45)
--- NOTE | 2018-11-06 23:45 | NUR ---
WOUND CARE NOTE PATIENT IS MEDICATED FOR WOUND CARE. WOUND CARE PERFORMED FOR PATIENT'S RIGHT POST OP INCISION PER PROTOCOL, HE TOLERATED WELL. HYGIENE CARE PROVIDED BY SERA GORE. HE IS REPOSITIONED FOR COMFORT, STABLE, NO SIGNS OF RESPIRATORY DISTRESS. CALL LIGHT WITHIN REACH. BED IS LOCKED, ALARMED, AND AT THE LOWEST LEVEL. Addendum: 11/07/18 at 0558 by Damon Castillo RN HE IS OFFERED SNACKS BEFORE HE BECOMES NPO STATUS AT MIDNIGHT.
[2018-11-07] VITALS (8 sets, daily range): BP systolic 89–105
--- NOTE | 2018-11-07 | NUR ---
NPO STATUS NOTE PATIENT HAS NOW BEEN PLACED ON NPO STATUS, HE VERBALIZES UNDERSTANDING THAT HE IS NOT TO TAKE ANYTHING BY MOUTH IN PREPARATION FOR POSSIBLE SURGERY IN THE DAYTIME. PATIENT'S BEDSIDE TABLE HAS BEEN CLEARED OF ALL FOOD AND BEVERAGES, NPO CONE PLACED AT BEDSIDE FOR REMINDER. SERA GORE AWARE. HE IS STABLE, NO SIGNS OF RESPIRATORY DISTRESS. CALL LIGHT WITHIN REACH. BED IS LOCKED, ALARMED, AND AT THE LOWEST LEVEL.
[2018-11-07] MEDS: AMPICILLIN SODIUM/SULBACTAM NA 3 GM in NS 100 ML IV SCH ×5 (00:33→23:14)
[2018-11-07] MEDS: HYDROmorphone 1 MG INJ. 1 MG/ML AMPUL IVP PRN ×6 (01:39→22:36)
--- NOTE | 2018-11-07 01:45 | NUR ---
PAIN NOTE PRN MEDICATION FOR PATIENT'S PAIN COMPLAINT AT THIS TIME. HE IS RESTING, STABLE, NO SIGNS OF RESPIRATORY DISTRESS. CALL LIGHT WITHIN REACH. BED IS LOCKED, ALARMED, AND AT THE LOWEST LEVEL.
--- NOTE | 2018-11-07 03:45 | NUR ---
NOTE HE IS SLEEPING, NO SIGNS OF RESPIRATORY DISTRESS. CALL LIGHT WITHIN REACH. BED IS LOCKED, ALARMED, AND AT THE LOWEST LEVEL.
[2018-11-07] MEDS: DIPHENHYDRAMINE INJ 50 MG/ML VIAL IVP PRN ×3 (04:55→20:51)
[2018-11-07] MEDS: D5/0.45 NS 1,000 ML IV SCH ×3 (05:29→16:00)
--- NOTE | 2018-11-07 05:45 | NUR ---
PAIN PRN MEDICATION FOR PATIENT'S PAIN COMPLAINT AT THIS TIME. HE IS RESTING, STABLE, NO SIGNS OF RESPIRATORY DISTRESS. CALL LIGHT WITHIN REACH. BED IS LOCKED, ALARMED, AND AT THE LOWEST LEVEL.
--- NOTE | 2018-11-07 06:03 | NUR ---
CLOSING NOTE PATIENT HAS BEEN KEPT NPO SINCE MIDNIGHT FOR POSSIBLE AM PROCEDURE. AT THIS TIME, HE IS RESTING IN BED, STABLE, NO SIGNS OF RESPIRATORY DISTRESS. CALL LIGHT IS WITHIN REACH. BED IS LOCKED, ALARMED, AND AT THE LOWEST LEVEL. FALL, SAFETY, AND RESPIRATORY PRECAUTIONS HAVE BEEN TAKEN THROUGHOUT THE SHIFT. WILL CONTINUE TO MONITOR UNTIL SHIFT REPORT IS GIVEN AT BEDSIDE TO AM NURSE.
[2018-11-07 06:36] LABS: BASOPHILS # (AUTO) 0.1 K/uL (0.0-0.2); BASOPHILS % (AUTO) 0.6 % (0.0-2.0); EOSINOPHILS # (AUTO) 0.4 K/uL (0.0-0.4); EOSINOPHILS % (AUTO) 3.5 % (0.0-4.0); LYMPHOCYTES # (AUTO) 2.4 K/uL (1.0-5.5); LYMPHOCYTES % (AUTO) 20.1 % (20.5-51.5); MEAN CORPUSCULAR HEMOGLOBIN 25 pg (27-31); MEAN CORPUSCULAR HGB CONC 33 % (32-36); MEAN CORPUSCULAR VOLUME 77 fL (79.0-98.0); MONOCYTES # (AUTO) 1.2 K/uL (0.0-1.0); MONOCYTES % (AUTO) 10.4 % (1.7-9.3); NEUTROPHILS # (AUTO) 7.7 K/uL (1.8-7.7); NEUTROPHILS % (AUTO) 65.4 % (40.0-70.0); PLATELET COUNT (AUTO) 542 K/uL (130-430); RED BLOOD CELL COUNT(AUTO) 2.54 MIL/uL (4.2-6.2); WHITE BLOOD COUNT (AUTO) 11.7 K/uL (4.8-10.8)
[2018-11-07 07:13] LABS: HEMATOCRIT 19.4 % (36-54); HEMOGLOBIN 6.4 g/dL (14.0-18.0)
[2018-11-07 07:14] LABS: RED CELL DISTRIBUTION WIDTH 25.4 % (9.0-15.0)
--- NOTE | 2018-11-07 07:40 | NUR ---
Opening notes, Received pt in bed, pt is aaox4, no c/o pain, pt is afebrile. no sob/no resp distress. pt got mad when told that he cannot have more ice chips. safety precaution in place. call light in reach. in low position. Encouraged patient to call for assist and pain medications and any concerns. will cont to monitor.
[2018-11-07 08:30] LABS: CALCIUM 7.6 mg/dL (8.4-11.0); CREATININE 0.57 mg/dL (0.55-1.30); POTASSIUM 3.7 mmol/L (3.5-5.1)
[2018-11-07] MEDS: MULTIVITAMINS TAB 1 TABLET PO SCH ×2 (08:30→20:51)
[2018-11-07] MEDS: NICOTINE 21 MG/24 HR PATCH.TD24 TD SCH (08:34)
--- NOTE | 2018-11-07 09:21 | NUR ---
PATIENT REFUSED TO HAVE THE BLOOD CONNECTED TO HIS IV UNLESS HE GOT HIS PAIN MEDICATION. EXPLAINED TO PT THAT WE CANNOT GIVE THE PAIN MED. SUPERVISOR LITHARGE JONATHAN GAVE DILAUDID IVP.
--- NOTE | 2018-11-07 09:30 | NUR ---
BLOOD TRANSFUSION STARTED.
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
--- NOTE | 2018-11-07 10:35 | NUR ---
PT TAKEN DOWN TO SURGERY BY KALYAN GUO AND CHIN STRAP SEWER.
[2018-11-07] MEDS ORDERED: ePHEDrine sulfate 50 MG/ML VIAL IVP ONE (10:40)
[2018-11-07] MEDS ORDERED: LR 1,000 ML IV.SOLN IV ONE (10:40)
[2018-11-07] MEDS ORDERED: PROPOFOL 200MG/ 20ML VIAL (DIPRIVAN) IV ONE (10:40)
[2018-11-07] MEDS ORDERED: NS 250 ML IV.SOLN IV ONE (10:40)
[2018-11-07] MEDS ORDERED: SEVOFLURANE 15 MIN GAS INH ONE (10:40)
[2018-11-07] MEDS ORDERED: MIDAZOLAM HCL 5 MG/5 ML VIAL IVP ONE (10:40)
[2018-11-07] MEDS ORDERED: ONDANSETRON HCL 4 MG/2 ML VIAL IVP ONE (10:40)
[2018-11-07] MEDS ORDERED: CEFAZOLIN 2 GM IVPB PREMIX 50 ML IV ONE (10:40)
[2018-11-07] MEDS ORDERED: POLYMYXIN 500,000/BACIT.10,000 UNITS in NS IRR 1 L IR ONE (10:47)
[2018-11-07] MEDS ORDERED: LR 1,000 ML IV SCH (12:39)
[2018-11-07] MEDS ORDERED: METOCLOPRAMIDE HCL 10 MG/2 ML VIAL IVP PRN (12:45)
[2018-11-07] MEDS ORDERED: MORPHINE 4 MG/ML INJ. SYRINGE IVP PRN ×3 (12:45)
--- NOTE | 2018-11-07 13:46 | NUR ---
pt still out of mst.
--- NOTE | 2018-11-07 13:55 | NUR ---
pt came back from surgery/pacu.
[2018-11-07] MEDS: SOD FERRIC GLUC COMPLEX/SUC 125 MG in NS 100 ML IV SCH (15:11)
--- NOTE | 2018-11-07 15:22 | NUR ---
PT STATED THAT HE WANTS TO GO OUT TO SMOKE. TOLD PT THAT HE SHOULD NOT GO OUT BECAUSE HE JUST HAD SURGERY AND THAT HE IS AT RISK OF BLEEDING. TOLD PATIENT THAT I AM NOT GIVING HIM PERMISSION TO GO OUTSIDE, HE SAID I DONT NEED YOUR PERMISSION. PT ALSO TRIED LOCKING HIS IV ACCESSESS RUNNING IV FLUIDS AND BLOOD. . Addendum: 11/07/18 at 1548 by Jesus Alberto Davies RN PT ALSO TOOK OUT HIS BP CUFF AND DOES NOT WANT TO FINISH THE POST PACU VITALS.
--- NOTE | 2018-11-07 15:26 | NUR ---
pt refuse to complete his vital after surgery and the nurse aware
--- NOTE | 2018-11-07 15:48 | NUR ---
PT REFUSED TO HAVE CBC DRAWN ORDERED STAT BY DR LIU TO MONITOR POST TRANSFUSION CBC.
[2018-11-07 16:49] LABS: BASOPHILS # (AUTO) 0.1 K/uL (0.0-0.2); BASOPHILS % (AUTO) 0.9 % (0.0-2.0); EOSINOPHILS # (AUTO) 0.2 K/uL (0.0-0.4); EOSINOPHILS % (AUTO) 1.2 % (0.0-4.0); HEMATOCRIT 30.9 % (36-54); HEMOGLOBIN 10.1 g/dL (14.0-18.0); LYMPHOCYTES # (AUTO) 2.1 K/uL (1.0-5.5); LYMPHOCYTES % (AUTO) 14.7 % (20.5-51.5); MEAN CORPUSCULAR HEMOGLOBIN 27 pg (27-31); MEAN CORPUSCULAR HGB CONC 33 % (32-36); MEAN CORPUSCULAR VOLUME 82 fL (79.0-98.0); MONOCYTES # (AUTO) 1.1 K/uL (0.0-1.0); MONOCYTES % (AUTO) 7.8 % (1.7-9.3); NEUTROPHILS % (AUTO) 75.4 % (40.0-70.0); PLATELET COUNT (AUTO) 518 K/uL (130-430); RED BLOOD CELL COUNT(AUTO) 3.79 MIL/uL (4.2-6.2); WHITE BLOOD COUNT (AUTO) 14.5 K/uL (4.8-10.8)
[2018-11-07 16:54] LABS: RED CELL DISTRIBUTION WIDTH 23.4 % (9.0-15.0)
--- NOTE | 2018-11-07 18:44 | NUR ---
Closing notes, pt has been stable the whole shift, given pain meds as requested. pt had orif by dr naranjo. no bleeding on the surgery site. pt has order for smoking tid. will endorse to night rn.
--- NOTE | 2018-11-07 19:15 | NUR ---
change of shift.pt.presents s/p surgery;orif;lt.thigh.pt.presents paraplegia;lower extremities;bilateral. pt.presents tierney catheter;chronic.pt.presents iv acces x2;rt.forearm;iv fluids infusing.lt.forearm;iv lock status.affect;aggressive,foul language.pt presents unlabored stable respiratory status.call light/telephone w/in the reach of the pt.
--- NOTE | 2018-11-07 20:00 | NUR ---
pt.assessed.v/s assessed.values w/in normal limits.i have assessed the tierney catheter;intact;patent:urine content present. i have assessed the iv access x2;rt.forearm intact;patent iv fluids infusing.i have assessed the lt.leg;dsg;delilah band intact. i have apprised the pt.that snacks beverages are available w/in the shift.pt.has requested ice water x2 pitchers.jello/pudding. i have provided the pitchers;water.i have provided jello.pt.capable to reposition self.general status stable.respiratory status stable.call light/telephone w/in the reach of the pt.
--- NOTE | 2018-11-07 21:00 | NUR ---
2100p medications administered pt.had requested benadryl;i have administered benadryl:25mg ivp.no additional requests posited@this hour.
--- NOTE | 2018-11-07 22:00 | NUR ---
pt.assessed.pt.presents quiescent affect;calm,viewing tv programming.i have assessed the tierney catheter intact;patent;pt.has request is i may flush the tierney catheter;assess if patent.i have attended to the assessment of the tierney catheter;patent;urine content present.pt. capable to reposition self.general status stable.respiratory status stable;unlabored.iv fluids infusing.call light/telephone w/in the reach of the pt.
[2018-11-07] MEDS: TEMAZEPAM 15 MG CAPSULE PO SCH (22:41)
--- NOTE | 2018-11-07 22:45 | NUR ---
pt.had requested the medication;pain/sleep.i have administered dilaudid;1mg ivp.to f/u re;pain medication efficacy.per pain mgx protocol.i have administered restoril:30mg po;to f/u re;medication efficacy.no additional requests@this hour.
[2018-11-07] MEDS: ACETAMINOPHEN 325 MG TABLET PO PRN (22:58)
[2018-11-07] MEDS: ONDANSETRON HCL 4 MG/2 ML VIAL IVP PRN (23:07)
--- NOTE | 2018-11-07 23:10 | NUR ---
pt.had stated he was nauseated.i have administered zofran;4mg ivp.to f/u re;medication efficacy.no additional requests posited @this hour. Addendum: 11/08/18 at 0332 by Rich Virk RN i was apprised per analyn;hotel dining room cashier that the pt.presents temp.i have administered tylenol:650mg po.i have applied ice packs;x3. to assess the v/s and the efficacy of the medication;tylenol.
--- NOTE | 2018-11-08 | NUR ---
pt.assessed.v/s assessed;temp presents decrease.pt.presents quiescent affect;calm,somnolent.i have assessed the iv access x2 intact;patent;rfa;iv fluids infusing.i have assessed the tierney catheter;intact;patent;urine content present.general status stable. respiratory status stable;unlabored @room temp.pt.capable to reposition self.call light/telephone w/in the reach of the pt.
[2018-11-08 01:45] VITALS: BP_SYST 108
--- NOTE | 2018-11-08 02:00 | NUR ---
pt.assessed.pt.presents quiescent affect;calm,somnolent.i have assessed the tierney catheter;intact;patent.urine content present.i have assessed the iv access x2;rfa;intact;patent;iv fluids infusing.general status stable.respiratory status stable;unlabored pt.capable to reposition self.call light/telephone w/in the reach of the pt.
--- NOTE | 2018-11-08 04:00 | NUR ---
pt.assessed.pt.presents quiescent affect;calm,somnolent.i have assessed iv access:x2;rfa;intact;patent;iv fluids infusing. i have assessed the tierney catheter;intact;patent;urine content present.pt.capable to reposition self.general status stable.respiratory status stable;unlabored.call light/telephone w/in the reach of the pt.
[2018-11-08] MEDS: AMPICILLIN SODIUM/SULBACTAM NA 3 GM in NS 100 ML IV SCH ×2 (05:03→12:29)
[2018-11-08] MEDS: HYDROmorphone 1 MG INJ. 1 MG/ML AMPUL IVP PRN ×5 (05:11→21:57)
--- NOTE | 2018-11-08 05:15 | NUR ---
pt.had requested medication;pain.i have administered dilaudid;1mg ivp;to f/u re;pain medication efficacy per pain mgx protocol. i inquired if i may attend to the wound care:rt,.leg/sacrum.pt.refused.
[2018-11-08] MEDS: DIPHENHYDRAMINE INJ 50 MG/ML VIAL IVP PRN ×2 (06:36→14:56)
--- NOTE | 2018-11-08 06:45 | NUR ---
pt,assessed.pt.had requested medication;pain.i have administered dilaudid;1mg ivp.pt.had requested benadryl;;i have administered : benadryl;25mg ivp.iv access assessed;intact;patent, iv fluids infusing.tierney catheter assessed;intact;patent;urine content present. pt.capable to reposition self.pt.had refuse lab draws@0600a;medical laboratory technical officer to return @0700a.call light/telephone w/in the reach of the pt.
--- NOTE | 2018-11-08 07:50 | NUR ---
Opening notes, Received pt in bed, no c/o pain at this time. bp is low at 82/42, pt has no sob, no dizziness. no fever at this time. pt assess and examined. pt got upset again during assessment. explained to pt that "it is just a part of our job of nurses to check and assess every patient. pt stated " no it is not". safety precaution kept in place. call light in reach. bed in low position. will cont to monitor.
[2018-11-08 07:56] VITALS: BP_SYST 82
[2018-11-08] MEDS: D5/0.45 NS 1,000 ML IV SCH ×2 (08:00)
[2018-11-08] MEDS: MULTIVITAMINS TAB 1 TABLET PO SCH ×2 (09:03→21:16)
[2018-11-08] MEDS: NICOTINE 21 MG/24 HR PATCH.TD24 TD SCH (09:04)
--- NOTE | 2018-11-08 10:00 | NUR ---
Discharge Planning: DCP gave packet to Zuleima from [facility] pt packet and CM will contact for update. Addendum: 11/08/18 at 1629 by Alexandra Watts DP Discharge Planning: DCP faxed pt referral to [facility] (f [phone] p [phone]), [facility] (f [phone] p [phone]), [facility] Montoya (f [phone] p [phone]) DCP to follow up.
--- NOTE | 2018-11-08 10:17 | NUR ---
Late Entry: Commissioned Defence Force Officer: CHIEF INVESTMENT OFFICER Called the office of the [facility] and [facility] to ensure they recieved the referral, SOC 134. They both confirmed they recieved CHIEF INVESTMENT OFFICER's report. CHIEF INVESTMENT OFFICER also sent over a hard copy to the [facility] and filed a copy.
[2018-11-08 12:30] VITALS: BP_SYST 114
[2018-11-08] MEDS: ONDANSETRON HCL 4 MG/2 ML VIAL IVP PRN (13:09)
[2018-11-08] MEDS: SOD FERRIC GLUC COMPLEX/SUC 125 MG in NS 100 ML IV SCH (14:57)
--- NOTE | 2018-11-08 15:40 | NUR ---
PAGED DR. DIGGS PER NURSE PAGED DR. DIGGS PER NURSE DIALED [phone]
[2018-11-08] MEDS: ACETAMINOPHEN 325 MG TABLET PO PRN ×2 (15:42→21:17)
--- NOTE | 2018-11-08 16:09 | NUR ---
Dr Maher here and seen patient. made aware that pt has slight temp this morning. said it is post surgery fever.
[2018-11-08 16:29] VITALS: BP_SYST 105
[2018-11-08] MEDS: PIPERACILLIN/TAZOBACTAM 3.375 GM/ D5W 50 ML IV SCH ×4 (17:40→23:56)
[2018-11-08] MEDS ORDERED: traZODone HCL 50 MG TABLET (DESYREL) PO SCH (18:00)
--- NOTE | 2018-11-08 19:50 | NUR ---
CLOSING NOTES, PT STILL C./O BACK PAIN, GIVEN PAIN MEDS AND ZOFRAN FOR NAUSEA. GIVEN TYLENOL FOR HEADACHE AND SLIGHT FEVER. DR LIU SAID FEVER IS POST OP REACTION ONLY. REFUSED IV START WITH TUMBLING BARREL PAINTER PLA. ENDORSED TO NIGHT RN TO GIVE THE IV ANTIBIOTICS WHEN PT AGREEES TO START AN IV.
[2018-11-08] MEDS: TEMAZEPAM 15 MG CAPSULE PO SCH (21:17)
[2018-11-08 21:20] VITALS: BP_SYST 114
--- NOTE | 2018-11-08 21:20 | NUR ---
Opening notes Pt AAOx4, VSS. Afebrile. No s/s distress noted. Tierney cath draining to gravity with good output of dark yellow urine. Pt refused tierney cath securement despite explaining to pt. Pt's own wheelchair at bedside. Dwayne thigh dressing c/d/i. Call light within reach. Safety measures in place. To monitor.
--- NOTE | 2018-11-08 21:45 | NUR ---
IV Restart Restarted IV R hand 22G good blood return, pt tolerated well.
--- NOTE | 2018-11-08 21:57 | NUR ---
Pain med Pt awake, c/o 12/28 lower back, neck pain. VSS. Medicated with Dilaudid 1mg IVP as needed. Call light within reach. Bed low, locked, alarm on. To monitor.
[2018-11-08 23:39] VITALS: BP_SYST 114
--- NOTE | 2018-11-09 00:45 | NUR ---
Rounds Pt asleep, respirations even and unlabored. Call light within reach. Safety measures on. To monitor..
--- NOTE | 2018-11-09 02:15 | NUR ---
Rounds Pt asleep. No s/s distress noted. Bed low, locked side rails on. Call light within reach. To monitor.
[2018-11-09] MEDS: PIPERACILLIN/TAZOBACTAM 3.375 GM/ D5W 50 ML IV SCH ×6 (05:14→17:58)
[2018-11-09] MEDS: HYDROmorphone 1 MG INJ. 1 MG/ML AMPUL IVP PRN ×5 (05:16→22:11)
--- NOTE | 2018-11-09 05:20 | NUR ---
Pain med/Closing notes Pt alert/awake, c/o lower back pain 9/10 and sweating. Pt medicated with Dilaudid 1mg IVP R. hand 22G clear and patent. Encouraged pt to do deep breathing exercise. Call light within reach. Bed low, locked, alarm on. SCDs to R. leg. Dressing to favian thighs C/D/I. Butt cath to gravity with dark yellow urine noted. To endorse to AM nurse.
[2018-11-09 07:17] LABS: CALCIUM 8.3 mg/dL (8.4-11.0); CREATININE 0.55 mg/dL (0.55-1.30); POTASSIUM 3.8 mmol/L (3.5-5.1)
[2018-11-09 07:21] LABS: BASOPHILS # (AUTO) 0.1 K/uL (0.0-0.2); BASOPHILS % (AUTO) 0.6 % (0.0-2.0); EOSINOPHILS # (AUTO) 0.5 K/uL (0.0-0.4); EOSINOPHILS % (AUTO) 4.5 % (0.0-4.0); HEMATOCRIT 29.8 % (36-54); LYMPHOCYTES # (AUTO) 1.4 K/uL (1.0-5.5); LYMPHOCYTES % (AUTO) 11.1 % (20.5-51.5); MEAN CORPUSCULAR HEMOGLOBIN 27 pg (27-31); MEAN CORPUSCULAR HGB CONC 34 % (32-36); MEAN CORPUSCULAR VOLUME 81 fL (79.0-98.0); MONOCYTES # (AUTO) 1.1 K/uL (0.0-1.0); MONOCYTES % (AUTO) 9.3 % (1.7-9.3); NEUTROPHILS % (AUTO) 74.5 % (40.0-70.0); PLATELET COUNT (AUTO) 529 K/uL (130-430); RED BLOOD CELL COUNT(AUTO) 3.67 MIL/uL (4.2-6.2); RED CELL DISTRIBUTION WIDTH 24.9 % (9.0-15.0); WHITE BLOOD COUNT (AUTO) 12.2 K/uL (4.8-10.8)
--- NOTE | 2018-11-09 07:55 | NUR ---
INITIAL NOTE RECEIVED PT IN BED, NO S/S OF DISTRESS OR SOB NOTED, PT HAS NO C/O PAIN AT THIS TIME, PT IN STABLE CONDITION, PT AAOX4, VERBAL. PT HAS AN IV CATHETER PATENT, NO SIGNS OF INFECTION OR INFILTRATION NOTED, SALINE LOCK. PT HAS A SHAHID CATHETER, DRAINING VIA GRAVITY. PT HAS A SCD ON RIGHT LEG. ENCOURAGED TO COUGH AND DEEP BREATH, EDUCATED PT ON USE OF INCENTIVE SPIROMETER, PT TO USE 10 TIMES AN HOUR WHILE AWAKE, PT VERBALIZED UNDERSTANDING, PT AT 1500ML. NEUROVASCULAR CHECK PERFORMED TO RIGHT AND LEFT LEG, PT PARAPLEGIC AND UNABLE TO FEEL ANYTHING ON BLE. BED AT LOWEST POSITION, CALL LIGHT WITHIN REACH, WILL CONTINUE TO MONITOR PT FOR ANY CHANGES, FALL AND SAFETY PRECAUTIONS IN PLACE. Addendum: 11/09/18 at 1842 by Janny Rousseau RN PT REFUSED TO PERFORM INCENTIVE SPIROMETER, PT STATED THAT IT WILL MAKE HIS PAIN WORSE, EDUCATED PT ON IMPORTANCE TO PREVENT PNEUMONIA, PT CONTINUES TO REFUSE, CHARGE NURSE MADE AWARE.
[2018-11-09] MEDS: MULTIVITAMINS TAB 1 TABLET PO SCH ×2 (08:15→21:35)
[2018-11-09] MEDS: NICOTINE 21 MG/24 HR PATCH.TD24 TD SCH (08:16)
[2018-11-09] MEDS: DIPHENHYDRAMINE INJ 50 MG/ML VIAL IVP PRN ×2 (08:16→15:30)
[2018-11-09 08:37] VITALS: BP_SYST 97
--- NOTE | 2018-11-09 08:46 | NUR ---
MEDICATION REASSESSMENT PT NO LONGER FEELS ITCHY, NO RASH NOTED, WILL CONTINUE TO MONITOR PT FOR ANY CHANGES.
--- NOTE | 2018-11-09 10:43 | NUR ---
MD ROUNDS DR DIGGS HERE TO SEE PT, PER MD NO NEED TO CHANGE DRESSINGS TODAY. NO NEW ORDERS GIVEN.
--- NOTE | 2018-11-09 10:55 | NUR ---
ROUNDS PT IN BED, NO S/S OF DISTRESS OR SOB NOTED, PT HAS NO C/O PAIN AT THIS TIME, PT IN STABLE CONDITION, PT WATCHING TV, WILL CONTINUE TO MONITOR PT FOR ANY CHANGES.
--- NOTE | 2018-11-09 12:10 | NUR ---
SMOKING PT LEFT UNIT WITH NURSE TO GO OUTSIDE AND SMOKE A CIGARETTE, PT IN STABLE CONDITION.
[2018-11-09 12:47] VITALS: BP_SYST 113
--- NOTE | 2018-11-09 12:55 | NUR ---
ROUNDS PT IN BED, NO S/S OF DISTRESS OR SOB NOTED, PT HAS NO C/O PAIN AT THIS TIME, PT IN STABLE CONDITION, PT RESTING COMFORTABLY, WILL CONTINUE TO MONITOR PT FOR ANY CHANGES.
--- NOTE | 2018-11-09 14:20 | NUR ---
SMOKING PT LEFT UNIT WITH NURSE TO GO OUTSIDE AND SMOKE A CIGARETTE, PT IN STABLE CONDITION.
--- NOTE | 2018-11-09 15:30 | NUR ---
Discharge Planning: DCP faxed pt referral [facility] (f [phone] p [phone]) DCP to follow up. Addendum: 11/09/18 at 1534 by Alexandra Watts [facility] (f [phone] p [phone]) declined to take pt back [facility] (f [phone] p [phone]) no male beds [facility] (f [phone] p [phone]) declined pt
--- NOTE | 2018-11-09 16:00 | NUR ---
MEDICATION REASSESSMENT PT NO LONGER FEELS ITCHY, NO RASH NOTED, WILL CONTINUE TO MONITOR PT FOR ANY CHANGES.
--- NOTE | 2018-11-09 16:24 | NUR ---
DC PLANNING Per joss Morris workforce planner, [facility] in [place] accepted pt. Spoke w pt @ bedside, & informed accepted @ [facility] in [place], states aware [facility] would not accept back that received call from them. Informed pt that other SNF's that sent info to also did not accept. [facility] does not want to go to [place]. Discussed w Dr Maher in ns station, states pt is stable to dc to SNF today, entered order. Spoke w pt @ bedside & Explained Medicare IM Letter, states will not sign IM Letter. States wants to appeal, gave pt ph#, pt called to appeal dc, no answer left msg to appeal dc. Gave pt copy of Medicare IM letter. Informed pt's nurse Janny & Charge nurse Raul that pt called & left msg to appeal dc. Updated Alexandra that pt appealing dc.
[2018-11-09] MEDS ORDERED: ACT35 PO (16:35)
[2018-11-09] MEDS ORDERED: TRAZ-218 PO (16:35)
[2018-11-09] MEDS ORDERED: NICO-681 TD (16:35)
[2018-11-09] MEDS ORDERED: BUSP5TAB3 PO (16:35)
[2018-11-09] MEDS ORDERED: Multivitamins Tab PO (16:35)
[2018-11-09] MEDS ORDERED: TEMA15CA5 PO (16:35)
[2018-11-09] MEDS ORDERED: ACET325T53 PO (16:35)
[2018-11-09 16:38] VITALS: BP_SYST 123
--- NOTE | 2018-11-09 16:38 | NUR ---
Nutrition F/U RD reviewed pt's current EMR record including diet Hx, physician notes, nursing notes, pertinent labs/meds/procedures, care trends, and care activity. Current Diet Order: Regular x2 days Subjective Info: Pt seen resting in bed, c/o feeling very cold. RD offered additional warm blankets; pt appreciative. Pt reported that his appetite has not been good d/t feeling too cold to eat. Pt reported last BM was 3 days ago, but that he usually has issues w/ constipation. Pt is POD 2 s/p open reduction internal fixation of R distal femur. RD offered ONS to better meet estimated nutritional needs -- pt agreeable. RD encouraged pt to try to eat at least 50% of most meals. Current % PO 67% average x3 meals -- improving since last RD visit 11/06/18 Estimated Energy Expenditure (kcals/day) 6069-2199 kcal/day (30-35 kcal/kg Adj IBW for wt gain promotion/planned Sx) Estimated Protein Required (g/day) 74-93 gm/day (1.2-1.5 gm/kg Adj IBW for wt gain promotion, planned Sx) Estimated Fluid Required (l/day) 1.7-2 L/day (30-35 ml/kg CBW for maintenance) Problem/Etiology/Signs/Symptoms Increased nutritional needs related to metabolic demands as evidenced by estimated nutritional requirements for wt gain promotion and planned Sx. *ongoing Expected Outcomes/Goals - Monitor advancement of diet, appetite, and PO intakes w/ goal of pt meeting at least 75% of estimated nutritional needs, labs trending WNL, normal GI function, and skin integrity/wt maintenance Dietitian Recommendations * Recommend regular, high fiber diet, Ensure Enlive BID (ONS provides 700 kcal/day, 40 gm protein/day) Follow Up Moderate Risk: F/U in 3-5 days
--- NOTE | 2018-11-09 16:47 | NUR ---
Dietitian Recommendations * Recommend regular, high fiber diet, Ensure Enlive BID (ONS provides 700 kcal/day, 40 gm protein/day) LP, RD Please refer to Nutrition F/U for details.
[2018-11-09] MEDS: traZODone HCL 50 MG TABLET (DESYREL) PO SCH (18:05)
--- NOTE | 2018-11-09 18:33 | NUR ---
CLOSING NOTE PT IN BED, NO S/S OF DISTRESS OR SOB NOTED, PT HAS NO C/O PAIN AT THIS TIME, PT IN STABLE CONDITION, PT AAOX4, VERBAL. PT HAS AN IV CATHETER PATENT, NO SIGNS OF INFECTION OR INFILTRATION NOTED, SALINE LOCK. PT HAS A SHAHID CATHETER, DRAINING VIA GRAVITY. PT HAS A SCD ON RIGHT LEG. ENCOURAGED TO COUGH AND DEEP BREATH. NEUROVASCULAR CHECK PERFORMED TO RIGHT AND LEFT LEG, PT PARAPLEGIC AND UNABLE TO FEEL ANYTHING ON BLE. BED AT LOWEST POSITION, CALL LIGHT WITHIN REACH, WILL ENDORSE CARE OF PT TO INCOMING NURSE, FALL AND SAFETY PRECAUTIONS IN PLACE.
--- NOTE | 2018-11-09 19:40 | NUR ---
Opening notes Pt AAOx4, VSS. Afebrile. No s/s distress noted. IV R hand 22G saline lock flushes well with NS. Tierney cath draining to gravity with good output of clear, yellow urine. Pt refused tierney cath securement despite explaining to pt. Pt's own wheelchair at bedside. Dwayne thigh dressing c/d/i. Call light within reach. Safety measures in place. To monitor.
--- NOTE | 2018-11-09 19:45 | NUR ---
Smoking Pt went with RN to smoke outside via own wheelchair. Pt in stable condition.
[2018-11-09 21:27] VITALS: BP_SYST 118
[2018-11-09] MEDS: busPIRone HCL 5 MG TABLET PO SCH (21:36)
[2018-11-09] MEDS: TEMAZEPAM 15 MG CAPSULE PO SCH (21:36)
--- NOTE | 2018-11-09 22:15 | NUR ---
Pain med Pt c/o 12/28 back pain, medicated with Dilaudid 1mg IVP as needed. VSS. No acute distress noted. Call light remains within reach. Safety measures in place. to monitor.
[2018-11-10] MEDS: DIPHENHYDRAMINE INJ 50 MG/ML VIAL IVP PRN ×3 (00:22→21:05)
[2018-11-10] MEDS: PIPERACILLIN/TAZOBACTAM 3.375 GM/ D5W 50 ML IV SCH ×8 (00:22→18:35)
[2018-11-10 00:45] VITALS: BP_SYST 111
[2018-11-10] MEDS: HYDROmorphone 1 MG INJ. 1 MG/ML AMPUL IVP PRN ×5 (02:03→17:57)
--- NOTE | 2018-11-10 02:05 | NUR ---
Pain med Pt awake, watching TV. C/O pain 10/10 lower back, no acute distress noted. Dilaudid 1mg IVP given R. hand 20G flushes well. Call light remains within reach. Bed low, locked, side rails up. To monitor.
[2018-11-10] MEDS ORDERED: RISEDRONATE SODIUM 35 MG TABLET PO SCH (06:00)
--- NOTE | 2018-11-10 06:00 | NUR ---
Closing notes Pt alert, awake, sitting up in bed, no s/s distress noted. Pt c/o severe pain, dilaudid 1mg IVP administered as needed on the R. hand 22G flushes well with NS. Encouraged pt to do deep breathing exercise. IV antibiotic administered. Call light within reach. Bed low, locked, siderails up x2. To endorse to AM nurse.
--- NOTE | 2018-11-10 08:00 | NUR ---
OPENING NOTE patient resting in bed with eyes closed, no acute distress or pain is noted at this time, breathing is even and unlabored on room air, tierney catheter draining well by gravity, will continue to monitor, safety precautions in place, side rails up, call light within reach.
[2018-11-10 08:01] VITALS: BP_SYST 101
[2018-11-10] MEDS: MULTIVITAMINS TAB 1 TABLET PO SCH ×2 (08:11→21:03)
[2018-11-10] MEDS: NICOTINE 21 MG/24 HR PATCH.TD24 TD SCH (08:11)
[2018-11-10] MEDS: busPIRone HCL 5 MG TABLET PO SCH ×3 (08:11→21:03)
--- NOTE | 2018-11-10 10:13 | NUR ---
DC PLANNING Received fax from [employer] pt appealed dc, Control . Medical Records given copy to fax pt info requested.
--- NOTE | 2018-11-10 10:15 | NUR ---
NOTES PATIENT IS RESTING IN BED, PATIENT WAS CHANGED FOR A BOWEL MOVEMENT, SHAHID CATHETER DRAINING WELL BY GRAVITY, PAIN IS CONTROLLED AT THIS TIME, WILL CONTINUE TO MONITOR, SAFETY PRECAUTIONS IN PLACE, CALL LIGHT WITHIN REACH.
--- NOTE | 2018-11-10 12:25 | NUR ---
NOTES PATIENT IS RESTING IN BED TALKING ON PHONE, PATIENT DENIES ANY ACUTE DISTRESS, PAIN IS CONTROLLED AT THIS TIME, WILL CONTINUE TO MONITOR, SAFETY PRECAUTIONS IN PLACE, CALL LIGHT WITHIN REACH.
[2018-11-10 12:57] VITALS: BP_SYST 113
--- NOTE | 2018-11-10 14:35 | NUR ---
NOTES PATIENT WENT OUT TO SMOKE AT THIS TIME, NO ACUTE DISTRESS OR PAIN IS NOTED, BREATHING IS EVEN AND UNLABORED ON ROOM AIR, SHAHID CATHETER DRAINING WELL BY GRAVITY, WILL CONTINUE TO MONITOR, SAFETY PRECAUTIONS IN PLACE.
--- NOTE | 2018-11-10 15:01 | NUR ---
Discharge Planning: DCP faxed pt referral to [facility] ([phone] p [phone]) per Halina pt accepted. DCP to follow up.
[2018-11-10 16:06] VITALS: BP_SYST 118
--- NOTE | 2018-11-10 16:28 | NUR ---
WOUND CARE INCISION ON RIGHT LOWER THIGH CLEANED AND DRESSING CHANGED, PICTURES TAKEN, PATIENT TOLERATED WELL, WILL CONTINUE TO MONITOR, SAFETY PRECAUTIONS IN PLACE, CALL LIGHT WITHIN REACH.
[2018-11-10] MEDS: traZODone HCL 50 MG TABLET (DESYREL) PO SCH (17:57)
--- NOTE | 2018-11-10 18:44 | NUR ---
CLOSING NOTE patient is resting in bed A&O x4, IVPB is infusing as this time, patient denies any acute distress, pain is controlled at this time, breathing is even and unlabored on room air, tierney catheter draining well by gravity, all needs were met throughout shift, will endorse report to oncoming nurse, safety precautions in place, call light within reach.
[2018-11-10 19:10] VITALS: BP_SYST 117
--- NOTE | 2018-11-10 19:10 | NUR ---
OPENING NOTE Received report from day shift nurse. Patient resting in bed awake, alert, oriented x4. Breathing unlabored and even on room air. No signs of distress, no needs at this time. Fall and safety precautions in place. Bed in lowest position, brake on, call light within reach. Will continue to monitor.
--- NOTE | 2018-11-10 20:15 | NUR ---
RN ROUNDS Patient resting in bed. Breathing unlabored and even on room air. No signs of distress, no needs at this time. Vital signs wnl. Scheduled medications administered as ordered. pt tolerated well. Patient reports itchiness. Prn Benadryl administered as ordered. Pt tolerated well. Fall and safety precautions in place. Bed in lowest position, brake on, call light within reach. Will continue to monitor.
[2018-11-10] MEDS: TEMAZEPAM 15 MG CAPSULE PO SCH (21:03)
--- NOTE | 2018-11-10 22:10 | NUR ---
RN ROUNDS Patient resting in bed. Breathing unlabored and even on room air. No signs of distress, no needs at this time. Fall and safety precautions in place. Bed in lowest position, brake on, call light within reach. Will continue to monitor.
[2018-11-11 01:10] VITALS: BP_SYST 113
[2018-11-11] MEDS: PIPERACILLIN/TAZOBACTAM 3.375 GM/ D5W 50 ML IV SCH ×8 (01:41→17:26)
[2018-11-11] MEDS: HYDROmorphone 1 MG INJ. 1 MG/ML AMPUL IVP PRN ×5 (02:15→18:15)
--- NOTE | 2018-11-11 02:20 | NUR ---
MED PASS PT REPORTS 9/10 NECK AND BACK PAIN. PRN DILAUDID 1 MG IVP ADMINISTERED ORDERED. PT TOLERATED WELL. SAFETY MEASURES IN PLACE. WILL CONTINUE TO MONITOR PT.
[2018-11-11] MEDS: DIPHENHYDRAMINE INJ 50 MG/ML VIAL IVP PRN ×3 (05:13→20:40)
--- NOTE | 2018-11-11 05:30 | NUR ---
MED PASS Patient reports itchiness. Prn Benadryl administered as ordered. Pt tolerated well. Fall and safety precautions in place. Bed in lowest position, brake on, call light within reach. Will continue to monitor.
--- NOTE | 2018-11-11 06:48 | NUR ---
CLOSING NOTE patient is resting in bed A&O x4, patient denies any acute distress or pain, IVPB infusing at this time, breathing is even and unlabored on room air, all needs were met throughout shift, will endorse report to oncoming nurse, safety precautions in place, call light within reach.
[2018-11-11 07:33] LABS: BASOPHILS # (AUTO) 0.1 K/uL (0.0-0.2); BASOPHILS % (AUTO) 0.7 % (0.0-2.0); EOSINOPHILS # (AUTO) 0.6 K/uL (0.0-0.4); EOSINOPHILS % (AUTO) 4.6 % (0.0-4.0); HEMATOCRIT 29.8 % (36-54); HEMOGLOBIN 9.9 g/dL (14.0-18.0); LYMPHOCYTES # (AUTO) 2.1 K/uL (1.0-5.5); LYMPHOCYTES % (AUTO) 17.6 % (20.5-51.5); MEAN CORPUSCULAR HEMOGLOBIN 27 pg (27-31); MEAN CORPUSCULAR HGB CONC 33 % (32-36); MEAN CORPUSCULAR VOLUME 80 fL (79.0-98.0); MONOCYTES # (AUTO) 0.9 K/uL (0.0-1.0); MONOCYTES % (AUTO) 7.4 % (1.7-9.3); NEUTROPHILS # (AUTO) 8.3 K/uL (1.8-7.7); NEUTROPHILS % (AUTO) 69.7 % (40.0-70.0); RED BLOOD CELL COUNT(AUTO) 3.71 MIL/uL (4.2-6.2); RED CELL DISTRIBUTION WIDTH 25.3 % (9.0-15.0); WHITE BLOOD COUNT (AUTO) 11.9 K/uL (4.8-10.8)
[2018-11-11 07:40] LABS: CALCIUM 8.2 mg/dL (8.4-11.0); CREATININE 0.55 mg/dL (0.55-1.30); POTASSIUM 3.9 mmol/L (3.5-5.1)
--- NOTE | 2018-11-11 07:45 | NUR ---
A&O x4. Breathing is even and unlabored. IV site on left FA, #22, SL. Instructed aqua ammonia operator light and safety education. Call light in place bed locked at the lowest position, will continue to monitor.
[2018-11-11 08:00] VITALS: BP_SYST 120
[2018-11-11] MEDS: busPIRone HCL 5 MG TABLET PO SCH ×3 (08:24→20:41)
[2018-11-11] MEDS: MULTIVITAMINS TAB 1 TABLET PO SCH ×2 (08:24→20:41)
[2018-11-11] MEDS: NICOTINE 21 MG/24 HR PATCH.TD24 TD SCH (09:00)
[2018-11-11 09:31] LABS: PLATELET COUNT (AUTO) 661 K/uL (130-430)
--- NOTE | 2018-11-11 10:00 | NUR ---
PATIENT WANTS TO GO OUTSIDE TO SMOKE. ELECTRONIC SERVICE TECHNICIAN WILL TAKE HIM OUTSIDE TO SMOKE IN 30 MINUTES.
--- NOTE | 2018-11-11 10:40 | NUR ---
PATIENT IS TAKEN TO SMOKE AND IS RETURNED TO THE ROOM. IVP DILAUDID 1MG IS GIVEN
[2018-11-11 12:29] VITALS: BP_SYST 128
--- NOTE | 2018-11-11 12:30 | NUR ---
PATIENT TOLERATES LUNCH WITHOUT DISTRESS.
--- NOTE | 2018-11-11 13:54 | NUR ---
DC PLANNING Received msg from Tomasa @ [facility] that Physician Reviewer agrees with termination of services, last covered day November 11 financial responsibility starts November 12, 2018. Stated that pt filed a 2nd level appeal, ph [phone]. Spoke w pt @ bedside, did receive call from [facility] & made 2nd appeal. Informed that [facility] had also accepted pt. Informed would follow up with him for dc once had decision from [facility] on 2nd appeal. Informed pt's nurse Justice & Charge nurse Mari pt not to be dc'd pt filed 2nd appeal would need to get decision from appeal. Updated Alexandra.
--- NOTE | 2018-11-11 14:30 | NUR ---
Patient c/o pain in the lower back. 1mg Dilaudid is given IVP
[2018-11-11] MEDS: ACETAMINOPHEN 325 MG TABLET PO PRN (15:24)
--- NOTE | 2018-11-11 15:37 | NUR ---
Patient is taken out to smoke and back.
[2018-11-11 17:21] VITALS: BP_SYST 114
[2018-11-11] MEDS: traZODone HCL 50 MG TABLET (DESYREL) PO SCH (17:24)
--- NOTE | 2018-11-11 18:05 | NUR ---
Patient is eating dinner, no signs of distress noted.
[2018-11-11 20:00] VITALS: BP_SYST 121
--- NOTE | 2018-11-11 20:00 | NUR ---
Opening Note Late entry d/t patient care. Patient is returning from smoking outside. He is awake, AOx4 and was assisting to bed, no sign of distress. VSS and non-labored breathing on room air. IV to RFA and LFA are saline lock. Bed is locked to lowest position, bed alarm on, instructed on use of call light.
[2018-11-11] MEDS: TEMAZEPAM 15 MG CAPSULE PO SCH (20:42)
--- NOTE | 2018-11-11 20:51 | NUR ---
Medication Due medication given. Educated on side effects, Restoril, and patient verbalized understanding.
[2018-11-12 00:37] VITALS: BP_SYST 116
[2018-11-12] MEDS: PIPERACILLIN/TAZOBACTAM 3.375 GM/ D5W 50 ML IV SCH ×10 (00:56→23:07)
[2018-11-12] MEDS: HYDROmorphone 1 MG INJ. 1 MG/ML AMPUL IVP PRN ×6 (01:08→23:12)
--- NOTE | 2018-11-12 02:12 | NUR ---
IV alarm IV alarmed and I noted that IVPB was not infusing. Replaced NS bag, primary tubing and secondary tubing. I verified and witness the secondary IV (the antibiotic IVPB) is infusing. Will monitor.
--- NOTE | 2018-11-12 04:49 | NUR ---
Pain medication Patient is awake and requesting pain medication for severe pain to neck and back. Medicating with medication for severe pain, Dilaudid, as ordered. Will monitor.
--- NOTE | 2018-11-12 07:30 | NUR ---
closing note Endorsed care, needs met throughout shift. Patient is stable
--- NOTE | 2018-11-12 08:00 | NUR ---
initial notes rec patient in bed with ivl on both arms in place. resp easy and unlabored. no sob noted. bed to the lowest position and side rails up and locked. call light withn reached and knows when to call for assistance.
[2018-11-12 08:35] VITALS: BP_SYST 96
[2018-11-12] MEDS: NICOTINE 21 MG/24 HR PATCH.TD24 TD SCH (09:08)
[2018-11-12] MEDS: busPIRone HCL 5 MG TABLET PO SCH ×3 (09:08→21:15)
[2018-11-12] MEDS: MULTIVITAMINS TAB 1 TABLET PO SCH ×2 (09:08→21:13)
[2018-11-12 10:40] LABS: BASOPHILS # (AUTO) 0.2 K/uL (0.0-0.2); BASOPHILS % (AUTO) 1.6 % (0.0-2.0); EOSINOPHILS # (AUTO) 0.5 K/uL (0.0-0.4); HEMATOCRIT 33.3 % (36-54); LYMPHOCYTES # (AUTO) 1.7 K/uL (1.0-5.5); LYMPHOCYTES % (AUTO) 14.6 % (20.5-51.5); MEAN CORPUSCULAR HEMOGLOBIN 26 pg (27-31); MEAN CORPUSCULAR HGB CONC 33 % (32-36); MEAN CORPUSCULAR VOLUME 80 fL (79.0-98.0); MONOCYTES # (AUTO) 0.8 K/uL (0.0-1.0); NEUTROPHILS # (AUTO) 8.7 K/uL (1.8-7.7); NEUTROPHILS % (AUTO) 72.8 % (40.0-70.0); RED BLOOD CELL COUNT(AUTO) 4.15 MIL/uL (4.2-6.2); RED CELL DISTRIBUTION WIDTH 25.6 % (9.0-15.0)
[2018-11-12 10:44] LABS: PLATELET COUNT (AUTO) 807 K/uL (130-430)
[2018-11-12 10:46] LABS: CALCIUM 8.3 mg/dL (8.4-11.0); CREATININE 0.69 mg/dL (0.55-1.30); POTASSIUM 3.8 mmol/L (3.5-5.1)
--- NOTE | 2018-11-12 10:48 | NUR ---
DC PLANNING: SPOKE WITH DAYO AT [facility] @ REGARDING STATUS OF SECOND APPEAL. PER DAYO, SECOND APPEAL IS PENDING RECONSIDERATION. IT WILL TAKE 1-3 DAYS TO PROCESS. CM TO FOLLOW UP NEEDED.
--- NOTE | 2018-11-12 12:35 | NUR ---
rounds due abx was given and pt is eating lunch. call light within reached.
[2018-11-12 12:44] VITALS: BP_SYST 139
--- NOTE | 2018-11-12 15:08 | NUR ---
Discharge Planning: DCP faxed pt referral to [facility] (f [phone] p [phone]) DCP to follow up.
[2018-11-12] MEDS ORDERED: ASPIRIN 81 MG TABLET(ECOTRIN) PO ONE (15:30)
[2018-11-12] MEDS: DIPHENHYDRAMINE INJ 50 MG/ML VIAL IVP PRN ×2 (15:30→21:17)
--- NOTE | 2018-11-12 16:00 | NUR ---
rounds taking a nap, no sob noted.
[2018-11-12 16:50] VITALS: BP_SYST 130
--- NOTE | 2018-11-12 18:30 | NUR ---
closing notes medicated for pain as requested. no osb noted. bed to the lowest position and side rails up and locked.
[2018-11-12] MEDS: traZODone HCL 50 MG TABLET (DESYREL) PO SCH (18:38)
--- NOTE | 2018-11-12 19:05 | NUR ---
OPENING NOTES BEDSIDE REPORT RECEIVED WITH PATIENT IN BED. AAOX4 AND ABLE TO VERBALIZE NEEDS. IV ON THE RIGHT FOREARM 20 GAUGE, CLEAN DRY AND INTACT. IV ON THE LEFT FOREARM 22 GAUGE CLEAN DRY AND INTACT. PATIENT IN PARAPLEGIC, WITH NO SENSATION TO THE BILATERAL LOWER EXTREMITIES. SHAHID CATHETER IN PLACE DRAINING BY GRAVITY YELLOW URINE. PATIENT IS ABLE TO TRANSFER SELF TO WHEELCHAIR. BED ALARM REFUSED, EDUCATION PROVIDED BUT STILL REFUSED. BED LOW AND LOCKED WITH BILATERAL UPPER RAILS UP. ORIENTED THE PATIENT TO THE ROOM AND USE OF THE CALL LIGHT. WILL MONITOR ON ROUNDS.
[2018-11-12 20:00] VITALS: BP_SYST 146
--- NOTE | 2018-11-12 20:30 | NUR ---
PATIENT ESCORTED OUTSIDE WITH MANAGER ANIMATION TO SMOKE.
[2018-11-12] MEDS: LORazepam 1 MG TABLET PO PRN (21:15)
[2018-11-12] MEDS: TEMAZEPAM 15 MG CAPSULE PO SCH (21:15)
[2018-11-12] MEDS: ENOXAPARIN SODIUM 40 MG/0.4 ML SYRINGE SUBCUT SCH (21:16)
--- NOTE | 2018-11-12 22:05 | NUR ---
MEDICATION TOLERATED WELL. MEDICATED WITH ATIVAN FOR ANXIETY AND GIVEN BENADRYL AT PATIENT REQUEST. PATIENT HAS COMPLAINTS OF CONTINUOUS PAIN.
--- NOTE | 2018-11-13 00:08 | NUR ---
PATIENT MEDICATED WITH DILAUDID FOR PAIN. ANTIBIOTICS ADMINISTERED WITH NO ADVERSE EFFECTS.
[2018-11-13 00:17] VITALS: BP_SYST 122
--- NOTE | 2018-11-13 04:19 | NUR ---
PATIENT RESTING IN BED WITH NO DISTRESS. WILL CONT TO MONITOR ON ROUNDS.
[2018-11-13] MEDS: PIPERACILLIN/TAZOBACTAM 3.375 GM/ D5W 50 ML IV SCH ×8 (05:30→23:55)
[2018-11-13] MEDS: HYDROmorphone 1 MG INJ. 1 MG/ML AMPUL IVP PRN ×5 (05:31→21:12)
[2018-11-13] MEDS: DIPHENHYDRAMINE INJ 50 MG/ML VIAL IVP PRN ×3 (05:35→18:37)
--- NOTE | 2018-11-13 06:39 | NUR ---
CLOSING NOTES PATIENT IN BED RESTING. GIVEN BENADRYL AND DILAUDID FOR PAIN. NO RESPIRATORY DISTRESS. BED LOCKED IN LOW POSITION. ALL NEEDS HAVE BEEN MET AND WILL ENDORSE CARE TO ONCOMING NURSE.
--- NOTE | 2018-11-13 07:32 | NUR ---
OPENING NOTE Patient resting in the bed. No acute distress. AAO x 4. No c/o pain a this time. Skin warm and dry to touch. IV intact to LFA, no redness, no swelling, patent. F/C intact, drain gravity with yellow urine. Discussed the safety issue, use call light when needs help, and plan of care, verbally understanding. Safety measure maintained. Bed locked in low position, side rails up. Refused bed alarm, risk and benefit explained. Call light within reached. Continue to monitor.
[2018-11-13 07:50] VITALS: BP_SYST 107
[2018-11-13] MEDS: busPIRone HCL 5 MG TABLET PO SCH ×3 (09:11→21:09)
[2018-11-13] MEDS: ASPIRIN 81 MG TABLET(ECOTRIN) PO SCH (09:11)
[2018-11-13] MEDS: MULTIVITAMINS TAB 1 TABLET PO SCH ×2 (09:11→21:10)
[2018-11-13] MEDS: NICOTINE 21 MG/24 HR PATCH.TD24 TD SCH (09:11)
--- NOTE | 2018-11-13 09:30 | NUR ---
PATIENT OUT TO SMOKE WITH CHARGE NURSE.
[2018-11-13 11:00] VITALS: BP_SYST 107
--- NOTE | 2018-11-13 11:05 | NUR ---
DC PLANNING: CM SPOKE WITH AHSAN AT [facility] @ REGARDING STATUS OF THE SECOND APPEAL. SECOND APPEAL OUTCOME WAS SUCCESSFUL. PATIENT CAN STAY WITHOUT LIABILITY. A NEW IM LETTER NEED TO BE GIVEN TO THE PATIENT FOR ANOTHER APPEAL. CM TO FOLLOW UP NEEDED.
--- NOTE | 2018-11-13 11:27 | NUR ---
SEEN AND EXAMINED BY DR. LIU [facility].
[2018-11-13 11:55] VITALS: BP_SYST 113
--- NOTE | 2018-11-13 12:18 | NUR ---
IV RE-INSERTION: Noted IV clogged. Restarted on LFA, gauge 22. Successful after 2 attempts. Connected to [facility]. Will observe for any signs of infiltration.
--- NOTE | 2018-11-13 13:15 | NUR ---
DILAUDID GIVEN Patient c/o back and neck pain 12/28. No acute distress. Dilaudid 1 mg IVP given as ordered. Safety measure maintained. Call light within reached. Bed locked in low position, side rails up. Continue to monitor.
[2018-11-13] MEDS: LORazepam 1 MG TABLET PO PRN (15:29)
--- NOTE | 2018-11-13 15:30 | NUR ---
ATIVAN GIVEN Patient c/o feeling anxiety, Ativan 1 mg PO given as ordered. safety measure maintained. Call light within reached. Bed locked in low position, side rails up. Continue to monitor.
[2018-11-13 15:45] VITALS: BP_SYST 122
--- NOTE | 2018-11-13 17:03 | NUR ---
Nutrition F/U RD reviewed pt's current EMR record including diet Hx, physician notes, nursing notes, pertinent labs/meds/procedures, care trends, and care activity. Current Diet Order: Regular, high fiber, Ensure Enlive BID x3 days Subjective Info: Pt is POD 3 s/p open reduction internal fixation of R distal femur. Pt would also benefit from wound healing modular. Current % PO 72% average x9 meals -- improving since last RD visit 11/09/18 Estimated Energy Expenditure (kcals/day) 5176-5730 kcal/day (30-35 kcal/kg Adj IBW for wt gain promotion/surgical healing) Estimated Protein Required (g/day) 74-93 gm/day (1.2-1.5 gm/kg Adj IBW for wt gain promotion/surgical healing) Estimated Fluid Required (l/day) 1.7-2 L/day (30-35 ml/kg CBW for maintenance) Problem/Etiology/Signs/Symptoms Increased nutritional needs related to metabolic demands as evidenced by estimated nutritional requirements for wt gain promotion and planned Sx. *ongoing Expected Outcomes/Goals - Monitor advancement of diet, appetite, and PO intakes w/ goal of pt meeting at least 75% of estimated nutritional needs, labs trending WNL, normal GI function, and skin integrity/wt maintenance Dietitian Recommendations * Recommend regular, high fiber diet, Ensure Enlive BID, Stepan BID (ONS provides 8800 kcal/day, 45 gm protein/day) Follow Up Moderate Risk: F/U in 3-5 days
--- NOTE | 2018-11-13 17:07 | NUR ---
Dietitian Recommendations * Recommend regular, high fiber diet, Ensure Enlive BID, Stepan BID (ONS and modular provides 8800 kcal/day, 45 gm protein/day) LP, RD Please refer to Nutrition F/U for details.
[2018-11-13] MEDS: traZODone HCL 50 MG TABLET (DESYREL) PO SCH (18:26)
--- NOTE | 2018-11-13 18:40 | NUR ---
CLOSING NOTE Patient resting in the bed. No acute distress. AAO x 4. No c/o pain a this time. Skin warm and dry to touch. IV intact to LFA, no redness, no swelling, patent. F/C intact, drain gravity with yellow urine. All needs met and attended. Safety measure maintained. Bed locked in low position, side rails up. Refused bed alarm, risk and benefit explained. Call light within reached. Will endorse to night nurse.
--- NOTE | 2018-11-13 19:05 | NUR ---
OPENING NOTES BEDSIDE REPORT RECEIVED WITH PATIENT IN BED. AAOX4 AND ABLE TO VERBALIZE NEEDS. IV ON THE LEFT FOREARM 22 GAUGE, CLEAN DRY AND INTACT. PATIENT IN PARAPLEGIC, WITH NO SENSATION TO THE BILATERAL LOWER EXTREMITIES. SHAHID CATHETER IN PLACE DRAINING BY GRAVITY YELLOW URINE. PATIENT IS ABLE TO TRANSFER SELF TO WHEELCHAIR. BED ALARM REFUSED, EDUCATION PROVIDED BUT STILL REFUSED. BED LOW AND LOCKED WITH BILATERAL UPPER RAILS UP. ORIENTED THE PATIENT TO THE ROOM AND USE OF THE CALL LIGHT. WILL MONITOR ON ROUNDS.
[2018-11-13 20:00] VITALS: BP_SYST 131
[2018-11-13] MEDS: TEMAZEPAM 15 MG CAPSULE PO SCH (21:10)
[2018-11-13] MEDS: ENOXAPARIN SODIUM 40 MG/0.4 ML SYRINGE SUBCUT SCH (21:10)
--- NOTE | 2018-11-13 22:23 | NUR ---
PATIENT GIVEN PO MEDS TOLERATED WELL. IV PUSH DILAUDID GIVEN FOR PAIN. WILL CONT TO MONITOR ON ROUNDS.
--- NOTE | 2018-11-14 00:35 | NUR ---
RESTING IN BED. NO FACIAL GRIMACING NOTED. NO RESPIRATORY DISTRESS. CALL LIGHT WITHIN REACH.
[2018-11-14] MEDS: LORazepam 1 MG TABLET PO PRN ×2 (01:12→15:27)
[2018-11-14] MEDS: DIPHENHYDRAMINE INJ 50 MG/ML VIAL IVP PRN ×3 (01:12→21:06)
[2018-11-14] MEDS: HYDROmorphone 1 MG INJ. 1 MG/ML AMPUL IVP PRN ×6 (01:13→23:17)
[2018-11-14 01:36] VITALS: BP_SYST 116
--- NOTE | 2018-11-14 03:30 | NUR ---
PATIENT IN BED ASLEEP. NO NOTICEABLE PAIN OR RESPIRATORY DISTRESS. WILL CONT TO MONITOR.
[2018-11-14] MEDS: PIPERACILLIN/TAZOBACTAM 3.375 GM/ D5W 50 ML IV SCH ×6 (05:36→17:37)
--- NOTE | 2018-11-14 05:53 | NUR ---
ADMINISTERED DILAUDID FOR BACK PAIN. IV ANTIBIOTICS INFUSING. WILL CONT TO MONITOR.
--- NOTE | 2018-11-14 06:48 | NUR ---
CLOSING NOTES PATIENT IN BED RESTING. NO RESPIRATORY DISTRESS. BED LOCKED IN LOW POSITION. ALL NEEDS HAVE BEEN MET AND WILL ENDORSE CARE TO ONCOMING NURSE.
--- NOTE | 2018-11-14 07:35 | NUR ---
OPENING NOTE Patient sitting in the wheelchair and just back from smoke. No acute distress. AAO x 4. No c/o pain a this time. Skin warm and dry to touch. IV intact to LFA, no redness, no swelling, patent. F/C intact, drain gravity with yellow urine. Discussed the safety issue, use call light when needs help, and plan of care, verbally understanding. Safety measure maintained. Call light within reached. Will continue to monitor.
[2018-11-14 07:40] VITALS: BP_SYST 108
[2018-11-14] MEDS: busPIRone HCL 5 MG TABLET PO SCH ×3 (08:50→21:06)
[2018-11-14] MEDS: NICOTINE 21 MG/24 HR PATCH.TD24 TD SCH (08:50)
[2018-11-14] MEDS: ASPIRIN 81 MG TABLET(ECOTRIN) PO SCH (08:50)
[2018-11-14] MEDS: MULTIVITAMINS TAB 1 TABLET PO SCH ×2 (08:50→21:06)
--- NOTE | 2018-11-14 10:03 | NUR ---
DILAUDID GIVEN Patient c/o generalized pain 12/28, Dilaudid 1 mg IVP given as ordered. No acute distress. Safety measure maintained. Call light within reached. Bed locked in low position, side rails up. Continue to monitor.
--- NOTE | 2018-11-14 11:40 | NUR ---
RESTING Patient resting in the bed with eyes closed. No acute distress. F/C intact, drain gravity with yellow urine. Safety measure maintained. Bed locked in low position, side rails up, Call light within reached. Continue to monitor.
[2018-11-14 12:42] VITALS: BP_SYST 101
[2018-11-14] MEDS ORDERED: HYDROmorphone 1 MG INJ. 1 MG/ML AMPUL IVP PRN (12:45)
--- NOTE | 2018-11-14 13:00 | NUR ---
SEEN AND EXAMINED BY BUBBA DE JESUS WITH ORDER RECEIVED.
--- NOTE | 2018-11-14 13:30 | NUR ---
STITCHES REMOVED Removed stitches from right thigh, apply steri strips as ordered. Removed total 7 stitches, no bleeding, no drainage, no odor. Patient tolerated procedure well. No acute distress. Safety measure maintained. Call light within reached. Continue to monitor.
--- NOTE | 2018-11-14 14:12 | NUR ---
DILAUDID GIVEN Patient c/o back and neck pain 12/28, Dilaudid 1 mg IVP given as ordered. No acute distress. Safety measure maintained. Call light within reached. Bed locked in low position, side rails up. Continue to monitor.
--- NOTE | 2018-11-14 15:28 | NUR ---
ATIVAN GIVEN Patient c/o feeling anxiety, Ativan 1 mg PO given as ordered. Safety measure maintained. Call light within reached. Bed locked in low position, side rails up. Continue to monitor.
[2018-11-14 16:48] VITALS: BP_SYST 119
--- NOTE | 2018-11-14 17:35 | NUR ---
FRIEND VISITED Patient resting in the bed and talked with friend at bedside. No acute distress. Safety measure maintained. Call light within reached. Continue to monitor.
[2018-11-14] MEDS: traZODone HCL 50 MG TABLET (DESYREL) PO SCH (17:37)
--- NOTE | 2018-11-14 18:36 | NUR ---
CLOSING NOTE Patient resting in the bed. No acute distress. PRN pain med given as needed. Skin warm and dry to touch. IV intact to LFA, no redness, no swelling, patent. F/C intact, drain gravity with yellow urine. All needs met and attended. Safety measure maintained. Call light within reached. Will endorse to night nurse.
--- NOTE | 2018-11-14 19:10 | NUR ---
OPENING NOTES RECEIVED PATIENT IN BED AAO X4. BREATHING UNLABORED ON ROOM AIR. PATIENT REQUESTING TO SMOKE. WENT OUT TO SMOKING AREA ACCOMPANIED BY DRAPERY INSTALLER.
[2018-11-14 21:03] VITALS: BP_SYST 107
[2018-11-14] MEDS: TEMAZEPAM 15 MG CAPSULE PO SCH (21:06)
--- NOTE | 2018-11-14 21:06 | NUR ---
MED PASS PATIENT DUE MEDICATIONS GIVEN. VITAL SIGNS STABLE. CALL LIGHT WITH IN REACH.
[2018-11-14] MEDS: ENOXAPARIN SODIUM 40 MG/0.4 ML SYRINGE SUBCUT SCH (21:08)
--- NOTE | 2018-11-14 23:17 | NUR ---
PAIN MGT PATIENT MEDICATED WITH DILAUDID FOR C/O NECK AND BACK PAIN 12/28. VITAL SIGNS STABLE. POSSIBLE SIDE EFFECTS OF MEDICATION DISCUSSED WITH PATIENT. CALL LIGHT WITH IN REACH. BED ALARM ON.
[2018-11-15] MEDS: PIPERACILLIN/TAZOBACTAM 3.375 GM/ D5W 50 ML IV SCH ×2 (00:17)
[2018-11-15 00:42] VITALS: BP_SYST 109
[2018-11-15] MEDS: ACETAMINOPHEN 325 MG TABLET PO PRN (01:43)
--- NOTE | 2018-11-15 01:43 | NUR ---
PAIN MGT PATIENT MEDICATED WITH TYLENOL FOR C/O HEADACHE. NO DISTRESS NOTED. CALL LIGHT WITH IN REACH.
[2018-11-15] MEDS: HYDROmorphone 1 MG INJ. 1 MG/ML AMPUL IVP PRN ×5 (03:40→19:39)
--- NOTE | 2018-11-15 03:40 | NUR ---
PAIN MGT PATIENT MEDICATED WITH DILAUDID FOR C/O NECK AND BACK PAIN 11/27. BED ALARM ON. CALL LIGHT WITH IN REACH.
--- NOTE | 2018-11-15 06:41 | NUR ---
CLOSING NOTES PATIENT RESTING IN BED. REFUSED ANTIBIOTIC TO BE INFUSED SCHEDULED DEMANDING PAIN MEDICATION TO BE GIVEN. PATIENT INFORMED THAT PAIN MEDICATION IS NOT DUE ANYTIME SOON. PATIENT BECOMES IRRITATED AND STARTED TALKING BADLY WITH CURSING. REFUSED BLOOD DRAW PER CATALOGUE COMPILER. BED IN LOWEST LOCKED POSITION. CALL LIGHT WITH IN REACH.
--- NOTE | 2018-11-15 07:30 | NUR ---
Opening Note Patient is AOx4, awake, resting in bed, no s/sx of distress, SL on LFA is patent and intact. c/o of 7/10 pain, will medicate. Bed is locked to lowest position, side rails up 2x, call light w/in reach. Updated board and reviewed plan of care. Encouraged to call for assist, pain med and any concerns. will cont to monitor.
[2018-11-15 07:57] VITALS: BP_SYST 113
[2018-11-15] MEDS: MULTIVITAMINS TAB 1 TABLET PO SCH ×2 (08:35→21:10)
[2018-11-15] MEDS: ASPIRIN 81 MG TABLET(ECOTRIN) PO SCH (08:35)
[2018-11-15] MEDS: NICOTINE 21 MG/24 HR PATCH.TD24 TD SCH (08:35)
[2018-11-15] MEDS: busPIRone HCL 5 MG TABLET PO SCH ×3 (08:35→21:10)
--- NOTE | 2018-11-15 10:15 | NUR ---
Pt in bed, no c/o pain, safety precaution in place, call light in reach. will cont to monitor.
[2018-11-15 10:47] LABS: BASOPHILS # (AUTO) 0.1 K/uL (0.0-0.2); EOSINOPHILS # (AUTO) 0.3 K/uL (0.0-0.4); EOSINOPHILS % (AUTO) 3.8 % (0.0-4.0); HEMOGLOBIN 10.5 g/dL (14.0-18.0); LYMPHOCYTES # (AUTO) 1.5 K/uL (1.0-5.5); LYMPHOCYTES % (AUTO) 16.9 % (20.5-51.5); MEAN CORPUSCULAR HEMOGLOBIN 26 pg (27-31); MEAN CORPUSCULAR HGB CONC 33 % (32-36); MEAN CORPUSCULAR VOLUME 80 fL (79.0-98.0); MONOCYTES # (AUTO) 0.6 K/uL (0.0-1.0); MONOCYTES % (AUTO) 6.4 % (1.7-9.3); NEUTROPHILS # (AUTO) 6.2 K/uL (1.8-7.7); NEUTROPHILS % (AUTO) 71.9 % (40.0-70.0); RED BLOOD CELL COUNT(AUTO) 3.99 MIL/uL (4.2-6.2); RED CELL DISTRIBUTION WIDTH 25.3 % (9.0-15.0); WHITE BLOOD COUNT (AUTO) 8.6 K/uL (4.8-10.8)
[2018-11-15 11:02] LABS: CREATININE 0.56 mg/dL (0.55-1.30); POTASSIUM 4.4 mmol/L (3.5-5.1)
[2018-11-15 11:21] LABS: PLATELET COUNT (AUTO) 882 K/uL (130-430)
--- NOTE | 2018-11-15 11:29 | NUR ---
[facility]ERSON MED GIVEN. WOUND CARE DONE ON LEFT KNEE. PT TOLERATED WELL.
[2018-11-15 12:42] VITALS: BP_SYST 108
[2018-11-15] MEDS: DIPHENHYDRAMINE INJ 50 MG/ML VIAL IVP PRN ×2 (12:58→21:11)
[2018-11-15 16:42] VITALS: BP_SYST 110
[2018-11-15] MEDS: traZODone HCL 50 MG TABLET (DESYREL) PO SCH (18:21)
--- NOTE | 2018-11-15 19:35 | NUR ---
CLOSING NOTES, PT HAS BEEN STABLE THE WHOLE SHIFT, GIVEN PAIN MEDS, ALL MEDS OFFERED AND TAKEN. ENDORSED TO NIGHT NURSE MICHAEL.
[2018-11-15 19:40] VITALS: BP_SYST 128
--- NOTE | 2018-11-15 19:40 | NUR ---
Opening notes Pt AAOx4, VSS, pt watching TV. Pt c/o chronic back pain 12/28, medicated with Dilaudid 1mg IVP L. FA 20G no s/s infiltration. Butt cath draining to gravity, noted with clear, yellow urine. Call light within reach. Safety measures in place. To monitor.
--- NOTE | 2018-11-15 20:40 | NUR ---
Back in room Pt back in room from smoking, sitting in wheelchair. No s/s distress noted.
[2018-11-15] MEDS: TEMAZEPAM 15 MG CAPSULE PO SCH (21:10)
--- NOTE | 2018-11-15 21:10 | NUR ---
Med pass Pt alert, awake, watching TV in bed. PM meds administered as scheduled, pt tolerated well. Pt refused bed alarm on. Call light within reach. To monitor.
[2018-11-15] MEDS: ENOXAPARIN SODIUM 40 MG/0.4 ML SYRINGE SUBCUT SCH (21:17)
--- NOTE | 2018-11-15 23:00 | NUR ---
Rounds Pt asleep, no s/s distress noted. Butt draining to gravity. Call light within reach. Bed low, locked, siderails x2 up. To monitor.
[2018-11-16] MEDS: HYDROmorphone 1 MG INJ. 1 MG/ML AMPUL IVP PRN ×6 (00:09→20:18)
--- NOTE | 2018-11-16 00:09 | NUR ---
Pain mgmt Pt c/o back pain. Medicated with Dilaudid 1mg IVP as needed L. FA 20G flushes well with NS. Call light within reach. R. SCDs on. Butt cath draining to gravity. To monitor.
[2018-11-16 01:50] VITALS: BP_SYST 100
[2018-11-16] MEDS: DIPHENHYDRAMINE INJ 50 MG/ML VIAL IVP PRN ×4 (02:38→22:39)
--- NOTE | 2018-11-16 04:05 | NUR ---
Pain mgmt Pt awake, c/o back chronic pain. Medicate with Dilaudid 1mg IVP L. FA 20 clear and patent. Call light within reach. To monitor.
--- NOTE | 2018-11-16 04:11 | NUR ---
CONSULT REASON FOR CONSULT: HIGH PLATELETS PERSON I SPOKE WITH: VALENTINO CONSULTING PHYSICIAN: DR. HARRELL ENTRY LEVEL BUYER PHONE NUMBER: [phone] ORDERING PHYSICIAN: DR. LIU
--- NOTE | 2018-11-16 06:20 | NUR ---
Closing notes Pt asleep. No s/s distress noted. IV L.FA 20 clear and patent. Butt cath draining to gravity with dark yellow urine. L. leg dressing C/D/I. R. lateral thigh steristrips dressing dry and intact. Call light within reach. R. SCDs on. Pt's own wheelchair at bedside. All needs met throughout the night. To endorse to AM nurse.
[2018-11-16 07:37] VITALS: BP_SYST 98
--- NOTE | 2018-11-16 07:42 | NUR ---
Opening Note Received pt in bed, Patient is AOx4, awake, resting in bed, no s/sx of distress. pt is afebrile. SL on LFA is patent and intact. c/o of 9/10 pain, will medicate. Bed is locked to lowest position, side rails up 2x, call light w/in reach. Updated board and reviewed plan of care. Encouraged to call for assist, pain med and any concerns. Discussed Plan of care for the day. will cont to monitor.
[2018-11-16] MEDS: NICOTINE 21 MG/24 HR PATCH.TD24 TD SCH (08:01)
[2018-11-16] MEDS: ASPIRIN 81 MG TABLET(ECOTRIN) PO SCH (08:02)
[2018-11-16] MEDS: busPIRone HCL 5 MG TABLET PO SCH ×3 (08:02→20:26)
[2018-11-16] MEDS: MULTIVITAMINS TAB 1 TABLET PO SCH ×2 (08:02→20:25)
--- NOTE | 2018-11-16 09:00 | NUR ---
told pt that he needs to be NPO for ultrasound of the abdomen.
[2018-11-16 09:19] LABS: TOTAL IRON BIND. CAPACITY 266 ug/dL (250-450)
--- NOTE | 2018-11-16 10:06 | NUR ---
Pt given benadryl as requested by pt.
--- NOTE | 2018-11-16 10:26 | NUR ---
paged dr juarez for pt's c/o of left leg spasms
--- NOTE | 2018-11-16 12:01 | NUR ---
pt given pain medication.
[2018-11-16 12:19] VITALS: BP_SYST 106
--- NOTE | 2018-11-16 12:55 | NUR ---
Wound Evaluation: Late note for 11/02/18 at 1425 secondary to patient care. Wound Consult ordered for Low Vishal Score. Patient re-evaluated for a low Vishal score of 17. Patient was awake, alert, oriented, and received in a [place] Bed with an IsoFlex MICHAEL mattress. Patient has Paraplegia, but is able to turn in bed. Recommend encourage and assist patient as needed with repositioning side to side only every 2 hours with pillow support. Elevate, off-load and float bilateral heels with pillows. Offload pressure areas with pillows for pressure re-distribution. Perform skin care and monitor skin integrity Q shift. Use moisture barrier cream on moisture susceptible areas QID and PRN for soiling. Skin assessment: 1. Right Lateral Hip: Scar tissue from a healed surgical incision, present on admission. 2. Right Lateral Hip, inferior to site 3: Scar tissue from a healed surgical incision, present on admission. 3. Right Lateral Hip, inferior to site 1: Healing surgical incision, present on admission. Incision is approximated/healed with pink scar tissue, and has steri-strips. Doni were recently removed. No odor, no drainage. Surgical incision intact. Recommend: No dressings needed. Continue to monitor sites every shift. 4. Left knee: Surgical incision. Site is approximated, with one small black scab near the center, with 26 doni. No odor, no drainage. Periwound is pink. Site measures 16.0 cm x 0.6 cm. 5. Left knee, left lateral to wound 4: Surgical incision. Site is approximated, with one small black scab near the center, with 2 doni. No odor, no drainage. Periwound is pink. Site measures 1.2 cm x 0.1 cm. 6. Left knee, inferior to wound 5: Surgical incision. Site is approximated, with one small black scab near the center, with 1 staple. No odor, no drainage. Periwound is pink. Site measures 1.2 cm x 0.1 cm.. Recommend: Cleanse sites with normal saline. Apply sure prep to hemanth-incisions. Cover with dressings for protection. Perform wound care daily, and as needed for dressing soiling or dislodgment.
[2018-11-16] MEDS: LORazepam 1 MG TABLET PO PRN (13:50)
--- NOTE | 2018-11-16 13:50 | NUR ---
pt given ativan for c/o anxiety. safety precaution in place. call light in reach. will cont to monitor.
[2018-11-16] MEDS: CARISOPRODOL 350 MG TABLET PO SCH ×2 (14:45→20:25)
[2018-11-16 16:00] VITALS: BP_SYST 106
--- NOTE | 2018-11-16 16:04 | NUR ---
pt given pain medications, safety precaution in place, will cont to monitor.
--- NOTE | 2018-11-16 16:13 | NUR ---
DC PLANNING: Waiting for Dr. Reyna consult for elevated platelets. Per Dr. Maher, possibly discharge patient once cleared by Dr. Reyna
[2018-11-16 16:38] VITALS: BP_SYST 110
[2018-11-16] MEDS: traZODone HCL 50 MG TABLET (DESYREL) PO SCH (17:51)
--- NOTE | 2018-11-16 18:20 | NUR ---
Closing notes, Pt has been stable, given pain meds given as requested. pt seen by Dr Maher and Dr Montez. Will endorse to night nurse.
[2018-11-16 20:17] VITALS: BP_SYST 123
--- NOTE | 2018-11-16 20:17 | NUR ---
Opening notes Pt AAO, VSS, sitting on the bed. R. SCDs in place. L. knee dressing C/D/I. Butt cath draining to gravity with yellow urine. Pt c/o pain, medicated with Dilaudid 1mg IVP left FA 20G clear and patent. Call light within reach. Pt's own wheelchair at bedside. To monitor.
[2018-11-16] MEDS: ENOXAPARIN SODIUM 40 MG/0.4 ML SYRINGE SUBCUT SCH (20:28)
--- NOTE | 2018-11-16 21:55 | NUR ---
Rounds Pt awake, watching TV, no acute distress noted. Informed pt Benadryl is not due yet. Pt agreeable. To monitor.
--- NOTE | 2018-11-16 22:45 | NUR ---
IV Re-insertion Pt c/o L arm IV stings. Still flushes well with 10ml NS. Re-started new IV R. forearm 22G via aseptic technique x 1 attempt, good blood return noted. Pt tolerated well. Benadryl 25mg IVP administered per pt request. To monitor.
[2018-11-17] MEDS: HYDROmorphone 1 MG INJ. 1 MG/ML AMPUL IVP PRN ×3 (00:13→08:15)
[2018-11-17 01:16] VITALS: BP_SYST 105
--- NOTE | 2018-11-17 02:35 | NUR ---
Rounds Pt asleep, no s/s distress noted. Butt draining to gravity. Call light within reach. Bed low, locked, siderails x2 up. To monitor.
--- NOTE | 2018-11-17 04:09 | NUR ---
Pain Pt asleep, easily arousable. Pain med Dilaudid 1mg given R. FA 22. Call light within reach. To monitor.
[2018-11-17] MEDS: DIPHENHYDRAMINE INJ 50 MG/ML VIAL IVP PRN (05:07)
--- NOTE | 2018-11-17 05:55 | NUR ---
Pt refused lab at this time. Per medical lab tech instructor will try again around 0700.
--- NOTE | 2018-11-17 06:50 | NUR ---
Closing notes Pt asleep, easily arousable. No s/s distress noted. R forearm and L. forearm saline lock, clear and patent. Butt cath draining to gravity. R. leg SCDs in place. Safety measures maintained. Pt's own wheelchair at bedside. All needs met throughout the night. Call light within reach. To endorse to AM nurse.
[2018-11-17 08:00] VITALS: BP_SYST 101
--- NOTE | 2018-11-17 08:10 | NUR ---
OPENING NOTE patient resting in bed A&O x4, patient denies any acute distress at this time, patient having back pains at this time, educated patient on plan of care and call light system, breathing is even and unlabored on room air, will continue to monitor, safety precautions in place, call light within reach.
[2018-11-17] MEDS: ASPIRIN 81 MG TABLET(ECOTRIN) PO SCH (08:13)
[2018-11-17] MEDS: CARISOPRODOL 350 MG TABLET PO SCH ×3 (08:13→20:39)
[2018-11-17] MEDS: NICOTINE 21 MG/24 HR PATCH.TD24 TD SCH (08:13)
[2018-11-17] MEDS: MULTIVITAMINS TAB 1 TABLET PO SCH ×2 (08:13→20:38)
[2018-11-17] MEDS: busPIRone HCL 5 MG TABLET PO SCH ×3 (08:13→20:38)
--- NOTE | 2018-11-17 10:15 | NUR ---
NOTES PATIENT OFF THE FLOOR SMOKING AT THIS TIME ACCOMPANIED BY STONE CUTTER.
--- NOTE | 2018-11-17 10:46 | NUR ---
Discharge Planning: DCP spoke to [facility] (f [phone] p [phone]) accepting pt rm [id number], [facility] (f [phone] p [phone]) accepted to [facility] (f [phone] p [phone]) per Tyra in admissions, production administrator not wanting to take back. CARLOTAP sent pt referral per her request to confirm.
[2018-11-17] MEDS: HYDROmorphone 2 MG TAB PO PRN ×3 (11:59→20:37)
--- NOTE | 2018-11-17 12:20 | NUR ---
NOTES PATIENT IS RESTING IN BED A&O X4, PATIENT DENIES ANY ACUTE DISTRESS, PAIN IS CONTROLLED AT THIS TIME, BREATHING IS EVEN AND UNLABORED ON ROOM AIR, WILL CONTINUE TO MONITOR, SAFETY PRECAUTIONS IN PLACE, CALL LIGHT WITHIN REACH.
[2018-11-17 12:27] VITALS: BP_SYST 146
--- NOTE | 2018-11-17 13:42 | NUR ---
DC PLANNING: Discussed with patient that DC order to SNF has been placed by Dr. Maher. Patient's Nurse (Sherita) confirmed that Dr. Reyna had cleared patient to be discharged to SNF. Patient has been accepted at [facility] and [facility]. Patient refused to be discharged to SNF and would like to appeal his discharge. JAVIER provided patient IM letter to call [facility] @ [phone]. Patient stated he is calling Leona. CM to follow up with Leona as needed.
--- NOTE | 2018-11-17 14:01 | NUR ---
DC PLANNING: Received a call from Cherelle from Leona @ and provided .
--- NOTE | 2018-11-17 14:10 | NUR ---
NOTES PATIENT OFF FLOOR AT THIS TIME SMOKING OUTSIDE ACCOMPANIED BY FIELD OPERATIONS COORDINATOR.
--- NOTE | 2018-11-17 14:15 | NUR ---
Nutrition F/U RD reviewed pt's current EMR including diet Hx, physician notes, nursing notes, pertinent labs/meds/procedures, care trends and care activity. Current Diet Order: Regular High Fiber, Ensure Enlive BID and Stepan BID x 3 days Subjective information: Pt continues to tolerate ONS and modular and continues w/ good appetite. No reports or complaints of abdominal discomfort. Current PO intake: Good 95% average of 2 meals Estimated Energy Expenditure (kcals/day) 3205-2213 kcal/day (30-35 kcal/kg Adj IBW for wt gain promotion/surgical healing) Estimated Protein Required (g/day) 74-93 gm/day (1.2-1.5 gm/kg Adj IBW for wt gain promotion/surgical healing) Estimated Fluid Required (l/day) 1.7-2 L/day (30-35 ml/kg CBW for maintenance) Problem/Etiology/Signs/Symptoms Increased nutritional needs related to metabolic demands as evidenced by estimated nutritional requirements for wt gain promotion and planned Sx. *ongoing Expected Outcomes/Goals - Monitor appetite, and PO intakes w/ goal of pt meeting at least 75% of estimated nutritional needs, labs trending WNL, normal GI function, and skin integrity/wt maintenance Dietitian Recommendations * Recommend continuing regular, high fiber diet, Ensure Enlive BID, Stepan BID (ONS provides 860 kcal/day, 45 gm protein/day) Follow Up Moderate Risk: F/U in 3-5 days Addendum: 11/17/18 at [address] RD received Nutrition Consult for Healing Surgical wound. Pt currently receives Stepan for wound healing and pt continues to tolerate current diet w/ Good PO intake. HALF-WAY, RD
--- NOTE | 2018-11-17 14:20 | NUR ---
Dietitian Recommendations * Recommend continuing regular, high fiber diet, Ensure Enlive BID, Stepan BID (ONS provides 860 kcal/day, 45 gm protein/day). JAIL, RD
[2018-11-17 16:16] VITALS: BP_SYST 119
--- NOTE | 2018-11-17 16:37 | NUR ---
NOTES patient is resting in bed A&O x4, patient denies any acute distress, pain is controlled at this time, will continue to monitor, safety precautions in place, call light within reach.
[2018-11-17 17:46] LABS: BASOPHILS # (AUTO) 0.2 K/uL (0.0-0.2); BASOPHILS % (AUTO) 1.9 % (0.0-2.0); EOSINOPHILS # (AUTO) 0.2 K/uL (0.0-0.4); HEMATOCRIT 32.5 % (36-54); HEMOGLOBIN 10.7 g/dL (14.0-18.0); LYMPHOCYTES # (AUTO) 1.9 K/uL (1.0-5.5); LYMPHOCYTES % (AUTO) 16.7 % (20.5-51.5); MEAN CORPUSCULAR HEMOGLOBIN 26 pg (27-31); MEAN CORPUSCULAR HGB CONC 33 % (32-36); MEAN CORPUSCULAR VOLUME 78 fL (79.0-98.0); MONOCYTES # (AUTO) 0.7 K/uL (0.0-1.0); NEUTROPHILS # (AUTO) 8.4 K/uL (1.8-7.7); NEUTROPHILS % (AUTO) 73.4 % (40.0-70.0); RED BLOOD CELL COUNT(AUTO) 4.16 MIL/uL (4.2-6.2); RED CELL DISTRIBUTION WIDTH 25.6 % (9.0-15.0); WHITE BLOOD COUNT (AUTO) 11.4 K/uL (4.8-10.8)
[2018-11-17 17:50] LABS: CALCIUM 8.9 mg/dL (8.4-11.0); CREATININE 0.49 mg/dL (0.55-1.30); POTASSIUM 3.6 mmol/L (3.5-5.1)
[2018-11-17] MEDS: traZODone HCL 50 MG TABLET (DESYREL) PO SCH (17:55)
[2018-11-17 18:00] LABS: PLATELET COUNT (AUTO) 1047 K/uL (130-430)
[2018-11-17] MEDS ORDERED: MAGNESIUM OXIDE 400 MG TABLET PO ONE (18:00)
[2018-11-17] MEDS ORDERED: CHOLECALCIFEROL (VITAMIN D3) 2,000 UNIT TABLET PO ONE (18:15)
--- NOTE | 2018-11-17 18:23 | NUR ---
Paged Dr. Maher s/w Idalia
--- NOTE | 2018-11-17 18:54 | NUR ---
CLOSING NOTE patient is resting in bed A&O x4, patient denies any acute distress, pain is controlled at this time, breathing is even and unlabored on room air, will continue to monitor, safety precautions in place, call light within reach.
--- NOTE | 2018-11-17 19:10 | NUR ---
OPENING NOTES RECEIVED PATIENT IN BED RESTING. BREATHING UNLABORED ON ROOM AIR. BED IN LOWEST LOCKED POSITION. CALL LIGHT WITH IN REACH.
[2018-11-17 20:32] VITALS: BP_SYST 126
--- NOTE | 2018-11-17 20:37 | NUR ---
PAIN MGT PATIENT MEDICATED WITH DILAUDID PO ORDERED FOR C/O UPPER BACK AND NECK PAIN 01/27. VITAL SIGNS STABLE.
[2018-11-17] MEDS: MAGNESIUM OXIDE 400 MG TABLET PO SCH (20:38)
[2018-11-17] MEDS: BACLOFEN 10 MG TABLET PO SCH (20:38)
[2018-11-17] MEDS: ENOXAPARIN SODIUM 40 MG/0.4 ML SYRINGE SUBCUT SCH (20:43)
--- NOTE | 2018-11-17 20:45 | NUR ---
SMOKE PATIENT OUT OF ROOM FOR SMOKE ACCOMPANIED BY FORENSIC BALLISTICS EXPERT.
[2018-11-18 01:01] VITALS: BP_SYST 121
--- NOTE | 2018-11-18 01:20 | NUR ---
ROUNDS PATIENT RESTING IN BED. BREATHING UNLABORED ON ROOM AIR. CALL LIGHT WITH IN REACH.
--- NOTE | 2018-11-18 04:00 | NUR ---
ROUNDS PATIENT RESTING IN BED. SNORING ON AND OFF. NO DISTRESS NOTED. CALL LIGHT WITH IN REACH.
[2018-11-18] MEDS: HYDROmorphone 2 MG TAB PO PRN ×5 (05:42→21:58)
--- NOTE | 2018-11-18 05:42 | NUR ---
PAIN MGT PATIENT MEDICATED WITH DILAUDID PO ORDERED FOR C/O UPPER BACK AND NECK PAIN. SIDE RAILS UP X2. CALL LIGHT WITH IN REACH. BED IN LOWEST LOCKED POSITION.
--- NOTE | 2018-11-18 07:02 | NUR ---
CLOSING NOTES PATIENT RESTING IN BED. NO CHANGE IN PATIENT CONDITION. REFUSED DRESSING CHANGED ON LEFT THIGH DRESSING AT THIS TIME. CALL LIGHT WITH IN REACH. BED IN LOWEST LOCKED POSITION.
[2018-11-18 08:15] VITALS: BP_SYST 109
--- NOTE | 2018-11-18 08:15 | NUR ---
OPENING NOTE patient resting in bed A&O x4, patient denies any acute distress at this time, pain is controlled at this time, educated patient on plan of care and call light system, breathing is even and unlabored on room air, will continue to monitor, safety precautions in place, call light within reach.
[2018-11-18] MEDS: BACLOFEN 10 MG TABLET PO SCH ×3 (08:56→21:52)
[2018-11-18] MEDS: CHOLECALCIFEROL (VITAMIN D3) 2,000 UNIT TABLET PO SCH (08:57)
[2018-11-18] MEDS: MAGNESIUM OXIDE 400 MG TABLET PO SCH ×2 (08:57→21:53)
[2018-11-18] MEDS: busPIRone HCL 5 MG TABLET PO SCH ×3 (08:57→21:52)
[2018-11-18] MEDS: CARISOPRODOL 350 MG TABLET PO SCH ×4 (08:57→21:53)
[2018-11-18] MEDS: MULTIVITAMINS TAB 1 TABLET PO SCH ×2 (08:57→21:57)
[2018-11-18] MEDS: ASPIRIN 81 MG TABLET(ECOTRIN) PO SCH (08:57)
[2018-11-18] MEDS: NICOTINE 21 MG/24 HR PATCH.TD24 TD SCH (08:58)
--- NOTE | 2018-11-18 10:15 | NUR ---
NOTES patient is resting in bed A&O x4 watching tv, pain is controlled at this time, breathing is even and unlabored on room air, will continue to monitor, safety precautions in place, call light within reach.
--- NOTE | 2018-11-18 10:52 | NUR ---
DC PLANNING: Contacted [facility] @ [phone] to follow up with appeal filed by patient yesterday. . JAVIER spoke with Gabi at [facility] stating the case is currently on review and they might have an outcome this afternoon. Advice to call back this afternoon to follow up. CM to follow up this afternoon.
[2018-11-18 11:49] VITALS: BP_SYST 103
--- NOTE | 2018-11-18 12:25 | NUR ---
NOTES patient is resting in bed with eyes closed, breathing is even and unlabored on room air, will continue to monitor, safety precautions in place, call light within reach.
[2018-11-18 13:41] LABS: HEMATOCRIT 32.9 % (36-54); HEMOGLOBIN 10.9 g/dL (14.0-18.0); MEAN CORPUSCULAR HEMOGLOBIN 26 pg (27-31); MEAN CORPUSCULAR HGB CONC 33 % (32-36); MEAN CORPUSCULAR VOLUME 79 fL (79.0-98.0); RED BLOOD CELL COUNT(AUTO) 4.18 MIL/uL (4.2-6.2); RED CELL DISTRIBUTION WIDTH 25.8 % (9.0-15.0); WHITE BLOOD COUNT (AUTO) 10.1 K/uL (4.8-10.8)
[2018-11-18 13:58] LABS: PLATELET COUNT (AUTO) 1159 K/uL (130-430)
[2018-11-18 14:12] LABS: BASOPHILS % (MANUAL) 0 % (0-2); EOSINOPHILS % (MANUAL) 3 % (0-7); LYMPHOCYTES % (MANUAL) 28 % (20-46); MONOCYTES % (MANUAL) 5 % (0-11)
--- NOTE | 2018-11-18 14:31 | NUR ---
PATIENT LEFT FLOOR TO SMOKE BY HIMSELF SECURITY CALLED.
--- NOTE | 2018-11-18 14:45 | NUR ---
SECURITY RETURNED PATIENT TO ROOM PATIENT EDUCATED PATIENT ON SMOKING POLICY AND PATIENT VERBALIZED UNDERSTANDING.
[2018-11-18 16:03] VITALS: BP_SYST 100
[2018-11-18] MEDS: traZODone HCL 50 MG TABLET (DESYREL) PO SCH (17:20)
--- NOTE | 2018-11-18 18:18 | NUR ---
CLOSING NOTE patient resting in bed eating dinner, patient denies any acute distress, pain is controlled at this time, breathing is even and unlabored on room air, all needs were met throughout shift, will endorse report to oncoming nurse, safety precautions in place, call light within reach.
--- NOTE | 2018-11-18 19:10 | NUR ---
OPENING NOTES PATIENT OUT OF ROOM IN HIS WHEEL CHAIR FOR SMOKE ACCOMPANIED BY YARD TRUCK DRIVER.
--- NOTE | 2018-11-18 21:28 | NUR ---
PAIN MGT PATIENT MEDICATED WITH DILAUDID FOR C/O UPPER BACK AND NECK PAIN. VITAL SIGNS STABLE.
[2018-11-18 21:48] VITALS: BP_SYST 107
[2018-11-18] MEDS: ENOXAPARIN SODIUM 40 MG/0.4 ML SYRINGE SUBCUT SCH (21:55)
--- NOTE | 2018-11-18 22:14 | NUR ---
DRESSING PATIENT STILL REFUSING LEFT THIGH DRESSING TO BE CHANGED. PER PATIENT DRESSING IS STILL OK NO NEED TO CHANGE IT. PATIENT EDUCATION PROVIDED REGARDING INCISION CARE TO PREVENT POSSIBLE INFECTION. PATIENT STILL REFUSING DRESSING CHANGE.
[2018-11-19 00:40] VITALS: BP_SYST 94
--- NOTE | 2018-11-19 01:30 | NUR ---
ROUNDS PATIENT RESTING IN BED. NO DISTRESS NOTED. CALL LIGHT WITH IN REACH.
--- NOTE | 2018-11-19 03:53 | NUR ---
ROUNDS PATIENT RESTING IN BED. NO DISTRESS NOTED. SNORING ON AND OFF. CALL LIGHT WITH IN REACH.
[2018-11-19] MEDS: HYDROmorphone 2 MG TAB PO PRN ×4 (06:23→20:11)
--- NOTE | 2018-11-19 06:23 | NUR ---
PAIN MGT PATIENT MEDICATED WITH DILAUDID PO FOR C/O 8/10 UPPER BACK AND NECK PAIN. CALL LIGHT WITH IN REACH.
--- NOTE | 2018-11-19 06:40 | NUR ---
CLOSING NOTES PATIENT RESTING IN BED. BREATHING UNLABORED ON ROOM AIR. PATIENT NEEDS ATTENDED. BED IN LOWEST LOCKED POSITION. CALL LIGHT WITH IN EASY REACH.
--- NOTE | 2018-11-19 07:15 | NUR ---
Initial notes: Patient awake, alert and oriented. Turkmen speaking. Complaining of SOB. Breathing treatment provided. Call light within reach. Safety measures in placed. Report received at bedside. Addendum: 11/19/18 at 0742 by Henna Jernigan RN wrong patient. Patient on bed sleeping. Stable. I.V. access patent. Call light within reach. Safety measure in placed. Report received report at bedside.
[2018-11-19 08:00] VITALS: BP_SYST 99
[2018-11-19] MEDS: NICOTINE 21 MG/24 HR PATCH.TD24 TD SCH (09:00)
[2018-11-19] MEDS: ASPIRIN 325 MG TABLET PO SCH (09:16)
[2018-11-19] MEDS: CHOLECALCIFEROL (VITAMIN D3) 2,000 UNIT TABLET PO SCH (09:17)
[2018-11-19] MEDS: BACLOFEN 10 MG TABLET PO SCH ×3 (09:17→20:10)
[2018-11-19] MEDS: busPIRone HCL 5 MG TABLET PO SCH ×3 (09:17→20:10)
[2018-11-19] MEDS: MAGNESIUM OXIDE 400 MG TABLET PO SCH ×2 (09:17→20:10)
[2018-11-19] MEDS: CARISOPRODOL 350 MG TABLET PO SCH ×4 (09:17→20:11)
[2018-11-19] MEDS: MULTIVITAMINS TAB 1 TABLET PO SCH ×2 (09:17→20:11)
--- NOTE | 2018-11-19 09:20 | NUR ---
rounds: patient refused to nicotine and wants to go out to smoke. Went out via w/c with staff to smoke cigarette.
--- NOTE | 2018-11-19 10:17 | NUR ---
DC PLANNING: CM FOLLOW UP WITH [facility] @ REGARDING STATUS OF APPEAL FOR . SPOKE WITH ROGE, OUTCOME WAS DC WAS UPHELD. PATIENT IS LIABLE STARTING TODAY. HOWEVER, PATIENT FILLED ANOTHER APPEAL. OUTCOME OF THE SECOND APPEAL WOULD PROBABLY BE IN TOMORROW. CM TO FOLLOW UP TOMORROW.
--- NOTE | 2018-11-19 10:21 | NUR ---
Bed Alarm: Turn on the alarm bed alarm. Patient said he will just turn it off. Provided education, patient refused to listen.
--- NOTE | 2018-11-19 11:00 | NUR ---
Fall: Per Raul, resource nurse, patient wheeled himself and slip down himself at the hallway. No complained of pain from fall. V/S stable. IR done. Informed Dr Maher with new orders.
[2018-11-19 11:01] LABS: BASOPHILS # (AUTO) 0.2 K/uL (0.0-0.2); BASOPHILS % (AUTO) 2.1 % (0.0-2.0); EOSINOPHILS # (AUTO) 0.3 K/uL (0.0-0.4); EOSINOPHILS % (AUTO) 2.7 % (0.0-4.0); HEMATOCRIT 32.5 % (36-54); HEMOGLOBIN 10.7 g/dL (14.0-18.0); LYMPHOCYTES # (AUTO) 2.3 K/uL (1.0-5.5); LYMPHOCYTES % (AUTO) 22.6 % (20.5-51.5); MEAN CORPUSCULAR HEMOGLOBIN 26 pg (27-31); MEAN CORPUSCULAR HGB CONC 33 % (32-36); MEAN CORPUSCULAR VOLUME 79 fL (79.0-98.0); MONOCYTES # (AUTO) 0.7 K/uL (0.0-1.0); MONOCYTES % (AUTO) 6.9 % (1.7-9.3); NEUTROPHILS # (AUTO) 6.8 K/uL (1.8-7.7); NEUTROPHILS % (AUTO) 65.7 % (40.0-70.0); RED BLOOD CELL COUNT(AUTO) 4.12 MIL/uL (4.2-6.2); RED CELL DISTRIBUTION WIDTH 25.5 % (9.0-15.0); WHITE BLOOD COUNT (AUTO) 10.4 K/uL (4.8-10.8)
[2018-11-19 11:07] LABS: PLATELET COUNT (AUTO) 1048 K/uL (130-430)
--- NOTE | 2018-11-19 11:54 | NUR ---
ONCOLOGY/HEMATOLOGY JULIO CESAR BOOKER DR WAS CALLED, RE: CRITICAL LAB RESULT. SPOKE TO JESSI.
[2018-11-19] MEDS: LORazepam 1 MG TABLET PO PRN ×2 (12:01→23:14)
[2018-11-19 12:49] VITALS: BP_SYST 122
--- NOTE | 2018-11-19 13:44 | NUR ---
rounds: patient resting on bed. no distress noted.
--- NOTE | 2018-11-19 14:51 | NUR ---
rounds: patient went out to smoke with staff.
--- NOTE | 2018-11-19 15:23 | NUR ---
l knee dressing: Changed dressing on l knee. incision with staple intact. no active bleeding. cleaned and applied new dressing.
--- NOTE | 2018-11-19 16:18 | NUR ---
DC PLANNING: PER DR. LIU, PATIENT IS ONLY STABLE TO BE DISCHARGE SNF DUE TO PATIENT'S PLATELET IS ELEVATED AT 1059. PATIENT 3rd APPEAL UPHELD. CURRENTLY WAITING FOR THE OUTCOME OF THE 4TH APPEAL.
[2018-11-19 16:45] VITALS: BP_SYST 126
[2018-11-19] MEDS: traZODone HCL 50 MG TABLET (DESYREL) PO SCH (18:24)
--- NOTE | 2018-11-19 18:54 | NUR ---
Closing notes: Patient sitting on bed. Stable. Needs attending. Call light within reach. Safety measures in placed. Report will be given to public health staff nurse.
--- NOTE | 2018-11-19 19:05 | NUR ---
Opening Note Received bedside report with patient in bed sitting. AAOx4 and able to verbalize his needs. Complaints of back and neck pain 10/. No respiratory distress. IV to left forearm, patent with no s/s of infiltration. Butt in place draining by gravity yellow and clear. STEPHEN bandage wrap to left leg clean dry and intact. Oriented the patient to the room and use of the call light. Call light placed within reach. Belongings within reach. Will monitor patient for change in condition on rounds.
[2018-11-19 20:00] VITALS: BP_SYST 113
[2018-11-19] MEDS: ENOXAPARIN SODIUM 40 MG/0.4 ML SYRINGE SUBCUT SCH (20:10)
[2018-11-19] MEDS: DIPHENHYDRAMINE HCL 50 MG CAPSULE PO PRN (20:11)
--- NOTE | 2018-11-19 22:24 | NUR ---
Patient in bed asleep positioned to the right. Audible breath sounds heard. Tolerated PO meds. Dilaudid 2mg, Benadryl 50mg and ativan 1mg given, requested per patient for pain of 10/10 to back and shoulder. No facial grimacing or respiratory distress noted.
[2018-11-20] MEDS: HYDROmorphone 2 MG TAB PO PRN ×6 (00:13→20:58)
--- NOTE | 2018-11-20 00:15 | NUR ---
Patient in bed resting. Dilaudid given for back pain. Will cont to monitor. No respiratory distress noted.
[2018-11-20 00:37] VITALS: BP_SYST 109
--- NOTE | 2018-11-20 02:01 | NUR ---
In bed resting. No pain or respiratory distress. Call light within reach. will cont to monitor.
[2018-11-20] MEDS: DIPHENHYDRAMINE HCL 50 MG CAPSULE PO PRN (04:16)
--- NOTE | 2018-11-20 04:59 | NUR ---
No change in condition.
--- NOTE | 2018-11-20 06:22 | NUR ---
Closing Notes No change from initial assessment. Bed alarm still refused. Call light within reach and all needs have been met. Safety precautions in place and will endorse care to oncoming nurse.
[2018-11-20 08:04] VITALS: BP_SYST 111
--- NOTE | 2018-11-20 08:05 | NUR ---
OPENING NOTE patient resting in bed with eyes closed, no acute distress is noted, pain controlled at this time, breathing is even and unlabored on room air, tierney catheter draining well by gravity, patient refused bed alarm, will continue to monitor, safety precautions in place, call light within reach.
[2018-11-20] MEDS: busPIRone HCL 5 MG TABLET PO SCH ×3 (08:13→20:54)
[2018-11-20] MEDS: CARISOPRODOL 350 MG TABLET PO SCH ×4 (08:13→20:53)
[2018-11-20] MEDS: MULTIVITAMINS TAB 1 TABLET PO SCH ×2 (08:13→20:54)
[2018-11-20] MEDS: NICOTINE 21 MG/24 HR PATCH.TD24 TD SCH (08:13)
[2018-11-20] MEDS: CHOLECALCIFEROL (VITAMIN D3) 2,000 UNIT TABLET PO SCH (08:13)
[2018-11-20] MEDS: BACLOFEN 10 MG TABLET PO SCH ×3 (08:13→20:54)
[2018-11-20] MEDS: MAGNESIUM OXIDE 400 MG TABLET PO SCH ×2 (08:13→20:53)
[2018-11-20] MEDS: ASPIRIN 325 MG TABLET PO SCH (08:13)
--- NOTE | 2018-11-20 10:50 | NUR ---
NOTES patient is resting in bed watching tv, patient denies any acute distress, pain is controlled at this time, breathing is even and unlabored on room air, will continue to monitor, safety precautions in place, call light within reach.
--- NOTE | 2018-11-20 12:53 | NUR ---
NOTES patient is resting in bed eating lunch, pain is controlled at this time, breathing is even and unlabored on room air, will continue to monitor, safety precautions in place, call light within reach.
--- NOTE | 2018-11-20 13:37 | NUR ---
Case mgt: F/U on Medicare [employer] reconsideration appeal: I called [phone] for status update--s/w Satya who said [employer] will have a decision on 11/21/18 regarding the reconsideration appeal filed by pt-case#[id number]--nldju Sylvia answered nurse Magallon's ph-I gave status update information to Mari -- RN
--- NOTE | 2018-11-20 14:00 | NUR ---
PATIENT LEFT FLOOR BY HIMSELF TO SMOKE patient left floor by himself without calling anyone to take him out, patient insisted he called nurses and no one answered to take him out, asked KEYPUNCHER and community health advocate if patient called and they both said no, patient found outside by charge nurse Cecily and security, charge nurse and security educated patient about hospital smoking policy. Patient has a discharge order and made an appeal 4 times already and is refusing to leave the hospital, patient made aware that while he is still in the hospital he needs to follow hospital smoking policy. Patient refused to return to room, patient stated "I don't care I can do whatever I want," charge nurse and security educated patient that he can only smoke one cigarette and patient stated "I can do whatever I want I can smoke as many cigarettes as I want." Security asked patient to give his cigarettes and patient refused and continued to smoke one cigarette after the other."
[2018-11-20 14:53] LABS: BASOPHILS # (AUTO) 0.1 K/uL (0.0-0.2); BASOPHILS % (AUTO) 0.8 % (0.0-2.0); EOSINOPHILS # (AUTO) 0.3 K/uL (0.0-0.4); EOSINOPHILS % (AUTO) 3.4 % (0.0-4.0); HEMATOCRIT 31.7 % (36-54); HEMOGLOBIN 10.4 g/dL (14.0-18.0); LYMPHOCYTES # (AUTO) 3.1 K/uL (1.0-5.5); LYMPHOCYTES % (AUTO) 31.2 % (20.5-51.5); MEAN CORPUSCULAR HEMOGLOBIN 26 pg (27-31); MEAN CORPUSCULAR HGB CONC 33 % (32-36); MEAN CORPUSCULAR VOLUME 78 fL (79.0-98.0); MONOCYTES # (AUTO) 0.7 K/uL (0.0-1.0); MONOCYTES % (AUTO) 7.5 % (1.7-9.3); NEUTROPHILS # (AUTO) 5.7 K/uL (1.8-7.7); NEUTROPHILS % (AUTO) 57.1 % (40.0-70.0); RED BLOOD CELL COUNT(AUTO) 4.05 MIL/uL (4.2-6.2); RED CELL DISTRIBUTION WIDTH 25.6 % (9.0-15.0); WHITE BLOOD COUNT (AUTO) 9.9 K/uL (4.8-10.8)
[2018-11-20 14:56] LABS: PLATELET COUNT (AUTO) 1041 K/uL (130-430)
[2018-11-20 15:08] VITALS: BP_SYST 119
--- NOTE | 2018-11-20 16:25 | NUR ---
NOTES patient is resting in bed watching tv, breathing is even and unlabored on room air, patient denies any acute distress, pain is controlled at this time, will continue to monitor, safety precautions in place, call light within reach.
[2018-11-20] MEDS: traZODone HCL 50 MG TABLET (DESYREL) PO SCH (17:44)
--- NOTE | 2018-11-20 18:32 | NUR ---
CLOSING NOTE patient is resting in bed watching tv and eating dinner, patient denies any acute distress, pain is controlled at this time, breathing is even and unlabored on room air, tierney catheter draining well by gravity, will continue to monitor, safety precautions in place, call light within reach.
--- NOTE | 2018-11-20 19:40 | NUR ---
Initial Note Received patient awake, alert and oriented in bed. No SOB noted. Denies any pain or n/v at this time. Paraplegic, own wheelchair at the bedside. Room air. VS stable. Saline lock. F/C intact and draining well. Scar noted on right hip. Left delilah wrap intact and no drainage noted. Refused to have the dressing changed. He wants to smoke around 8pm. Will notify SERA Lewis. Care and monitoring will be provided per protocol. Call light within reach. Bed alarm off per patient's request. Bed at lowest position at all times. Needs attended. Kept warm and comfortable. Fall precaution observed.
[2018-11-20 20:00] VITALS: BP_SYST 119
[2018-11-20] MEDS: ENOXAPARIN SODIUM 40 MG/0.4 ML SYRINGE SUBCUT SCH (20:55)
--- NOTE | 2018-11-20 21:00 | NUR ---
Pain med Patient on his wheelchair arrived with PROCESSOR INSPECTOR after smoking outside. Patient aware that would be the last one for tonight. Bed linens changed. Patient able to transfer from his wheelchair to the bed. Due meds given along with pain medication for neck and back pain, tolerated well. Provided some washcloth and new gown. Assisted on nighttime hygiene. No other complaints. Advised to call if he wants to transfer to his wheelchair. Fall and safety precautions observed. Kept clean, dry and comfortable. Will continue to monitor.
--- NOTE | 2018-11-20 23:00 | NUR ---
RN Note Patient in bed watching TV. No SOB noted.
[2018-11-21] MEDS: HYDROmorphone 2 MG TAB PO PRN ×6 (01:06→23:52)
--- NOTE | 2018-11-21 01:06 | NUR ---
Pain med Patient complain of leg twitching and pain. Medicated for pain per patient's request. Reposition himself. Comfort measures provided. No other complaints. Will continue to monitor.
[2018-11-21 01:26] VITALS: BP_SYST 110
[2018-11-21] MEDS: LORazepam 1 MG TABLET PO PRN (03:08)
--- NOTE | 2018-11-21 03:08 | NUR ---
Can't sleep Patient called complaining of insomnia, restlessness and feels pain on his left leg. Pain medication not due yet but wants something to make him sleep. Medicated for restlessness. Will continue to monitor. Needs attended.
--- NOTE | 2018-11-21 04:30 | NUR ---
RN Note Patient sleeping at this time. No SOB or grimacing noted.
--- NOTE | 2018-11-21 06:06 | NUR ---
End Note Afebrile. VS stable. No complain of SOB or n/v throughout the night. Went out to smoke once last night with POWER GENERATION TECHNICIAN. Repositions self. Adequate urine output from F/C. Refused to have left leg dressing changed, will endorse. Medicated for pain twice all night and for restlessness once. Patient is still sleeping at this time. Care and monitoring provided per protocol. Call light within reach. Bed alarm off per patient's request. Bed at lowest position at all times and own wheelchair near the bed. Needs attended. Kept warm and comfortable. Fall and safety precautions observed. DNR.
[2018-11-21 08:01] VITALS: BP_SYST 127
--- NOTE | 2018-11-21 08:07 | NUR ---
OPENING NOTE patient resting in bed A&O x4, patient denies any acute distress, pain is controlled at this time, breathing is even and unlabored on room air, educated patient on plan of care and call light system, will continue to monitor, safety precautions in place, tierney catheter draining well by gravity, call light within reach.
[2018-11-21] MEDS: CHOLECALCIFEROL (VITAMIN D3) 2,000 UNIT TABLET PO SCH (08:20)
[2018-11-21] MEDS: ASPIRIN 325 MG TABLET PO SCH (08:20)
[2018-11-21] MEDS: busPIRone HCL 5 MG TABLET PO SCH ×4 (08:21→20:43)
[2018-11-21] MEDS: CARISOPRODOL 350 MG TABLET PO SCH ×2 (08:21→13:50)
[2018-11-21] MEDS: BACLOFEN 10 MG TABLET PO SCH ×5 (08:21→20:49)
[2018-11-21] MEDS: NICOTINE 21 MG/24 HR PATCH.TD24 TD SCH (08:21)
[2018-11-21] MEDS: MAGNESIUM OXIDE 400 MG TABLET PO SCH ×2 (08:21→20:43)
[2018-11-21] MEDS: MULTIVITAMINS TAB 1 TABLET PO SCH ×2 (08:21→20:45)
--- NOTE | 2018-11-21 10:05 | NUR ---
Case Mgt: F/U on [employer] reconsideration appeal ph#[phone] for status update case#[id number]. LVM for call back once life personal is on duty from 11 am to 3pm on Sat/Sun.-- CM to f/u. Addendum: 11/21/18 at 1425 by Mary Clemente RN >> 2nd f/u: LVM for [employer] staff to call back with decision update.
--- NOTE | 2018-11-21 10:25 | NUR ---
NOTES patient resting in bed watching tv, patient denies any acute distress, pain is controlled at this time, breathing is even and unlabored on room air, will continue to monitor, safety precautions in place, call light within reach.
--- NOTE | 2018-11-21 12:32 | NUR ---
NOTES patient is eating lunch at this time, patient denies any acute distress, pain is controlled at this time, will continue to monitor, safety precautions in place, call light within reach.
[2018-11-21 12:54] VITALS: BP_SYST 98
[2018-11-21 13:25] LABS: BASOPHILS # (AUTO) 0.1 K/uL (0.0-0.2); BASOPHILS % (AUTO) 1.2 % (0.0-2.0); EOSINOPHILS # (AUTO) 0.3 K/uL (0.0-0.4); EOSINOPHILS % (AUTO) 2.4 % (0.0-4.0); HEMATOCRIT 29.3 % (36-54); HEMOGLOBIN 9.8 g/dL (14.0-18.0); LYMPHOCYTES # (AUTO) 2.5 K/uL (1.0-5.5); LYMPHOCYTES % (AUTO) 24.1 % (20.5-51.5); MEAN CORPUSCULAR HEMOGLOBIN 26 pg (27-31); MEAN CORPUSCULAR HGB CONC 33 % (32-36); MEAN CORPUSCULAR VOLUME 77 fL (79.0-98.0); MONOCYTES # (AUTO) 0.9 K/uL (0.0-1.0); MONOCYTES % (AUTO) 8.2 % (1.7-9.3); NEUTROPHILS # (AUTO) 6.7 K/uL (1.8-7.7); NEUTROPHILS % (AUTO) 64.1 % (40.0-70.0); RED BLOOD CELL COUNT(AUTO) 3.81 MIL/uL (4.2-6.2); RED CELL DISTRIBUTION WIDTH 25.7 % (9.0-15.0); WHITE BLOOD COUNT (AUTO) 10.4 K/uL (4.8-10.8)
[2018-11-21 13:28] LABS: PLATELET COUNT (AUTO) 926 K/uL (130-430)
--- NOTE | 2018-11-21 13:33 | NUR ---
ONCO/HEMATOLOGY MD DR HARRELL, DOUGLAS REYES WAS CALLED RE: CRITICAL LAB. SPOKE TO ALONDRA
--- NOTE | 2018-11-21 14:25 | NUR ---
NOTES patient went to smoke at this time accompanied by BUTTON DECORATING MACHINE OPERATOR, no acute distress at this time, pain is controlled at this time, will continue to monitor, safety precautions in place.
--- NOTE | 2018-11-21 16:45 | NUR ---
NOTES patient resting in bed watching tv, patient denies any acute distress, pain is controlled at this time, breathing is even and unlabored on room air, tierney catheter draining well by gravity, will continue to monitor, safety precautions in place, call light within reach.
[2018-11-21] MEDS: traZODone HCL 50 MG TABLET (DESYREL) PO SCH (17:03)
[2018-11-21 17:11] VITALS: BP_SYST 138
--- NOTE | 2018-11-21 18:24 | NUR ---
CLOSING NOTE patient is resting in bed watching tv and eating dinner, dressing on left knee changed, patient denies any acute distress, pain is controlled at this time, breathing is even and unlabored on room air, tierney catheter draining well by gravity, will continue to monitor, safety precautions in place, call light within reach.
--- NOTE | 2018-11-21 19:30 | NUR ---
CHANGE OF SHIFT; pt. was accompanied by RUG RECEIVING CLERK Analyn via wheelchair to smoke.
--- NOTE | 2018-11-21 19:55 | NUR ---
NOTES; pt. came back from smoking and able to transfer himself from the wheelchair to bed. c/o of left leg pain S/P , medicated with Dilaudid po as schedule prn. repositioned self for comfort, verbalizing he have not slept since he was here because of his ori, pt. reassured. VS checked. IV lock on rt. forearm, site with tape appears dirty, does not want dressing changed at this time. pt. has tierney catheter in place to OSD with yellow urine output. dressing on left knee/leg area intact. call light within reach. pt. does not want the bed alarm on, pt. is aware that he is a fall risk. call light at bedside.
[2018-11-21 20:00] VITALS: BP_SYST 119
[2018-11-21] MEDS: ENOXAPARIN SODIUM 40 MG/0.4 ML SYRINGE SUBCUT SCH (20:44)
--- NOTE | 2018-11-21 20:45 | NUR ---
NOTES: pt. due medications given. still verbalizing still with pain but calmer. denies any shortness of breath. no distress. watching tv at this time. next pain med around midnight and pt. is aware.
--- NOTE | 2018-11-21 22:21 | NUR ---
NOTES: pt. resting when checked. kept door open.
--- NOTE | 2018-11-21 23:55 | NUR ---
NOTES: pt. called c/o pain on his left leg, needs to wake up since pt. was sleeping, given Dilaudid po , repositioned self. VS rechecked. pt. needs attended.
[2018-11-22] VITALS: BP_SYST 97
--- NOTE | 2018-11-22 01:30 | NUR ---
NOTES: pt. sleeping when checked. condition observed.
--- NOTE | 2018-11-22 03:30 | NUR ---
NOTES: made rounds, pt. remain sleeping quietly. safety precautions observed. call light within reach.
--- NOTE | 2018-11-22 05:00 | NUR ---
NOTES: pt. checked and still asleep, did not wake up earlier for his pain med.
[2018-11-22] MEDS: HYDROmorphone 2 MG TAB PO PRN ×5 (05:50→22:14)
--- NOTE | 2018-11-22 05:50 | NUR ---
NOTES: pt. woke up and was upset that he did not get his pain med, informed that he's been sleeping. medicated with Dilaudid po for c/o pain on his left leg. noted some redness on his buttocks and scrotal area. pt. gown was soaked wet, been sweating while he was asleep, pt. said he really sweats due to medication, gown changed, offered to changed bed sheet but refused. tierney cath bag drained. pt. been drinking oral liquids including soda, milk and water. went back to sleep.
--- NOTE | 2018-11-22 06:50 | NUR ---
CLOSING NOTES; pt. asleep when checked, no acute distress. noted relief from pain. IV lock intact. tierney cath to OSD and drained. for further assistance. fall precautions observed, still does not want bed alarm. will endorse to day shift.
--- NOTE | 2018-11-22 07:36 | NUR ---
Opening Note received bedside SBAR report from operation shift supervisor RN, patient resting in bed, respirations even and unlabored on room air, no acute distress noted, educated patient on use of call light and asked to call for assistance, patient verbalized understanding, call light in reach, educated patient on use of bed alarm for patient safety, patient refusing bed alarm, bed in low and locked position.
[2018-11-22 08:00] VITALS: BP_SYST 105
[2018-11-22] MEDS: MULTIVITAMINS TAB 1 TABLET PO SCH ×2 (08:39→20:48)
[2018-11-22] MEDS: MAGNESIUM OXIDE 400 MG TABLET PO SCH ×2 (08:39→20:47)
[2018-11-22] MEDS: BACLOFEN 10 MG TABLET PO SCH ×4 (08:39→20:47)
[2018-11-22] MEDS: CHOLECALCIFEROL (VITAMIN D3) 2,000 UNIT TABLET PO SCH (08:39)
[2018-11-22] MEDS: NICOTINE 21 MG/24 HR PATCH.TD24 TD SCH (08:39)
[2018-11-22] MEDS: ASPIRIN 325 MG TABLET PO SCH (08:39)
[2018-11-22] MEDS: busPIRone HCL 5 MG TABLET PO SCH ×3 (08:39→20:48)
--- NOTE | 2018-11-22 08:45 | NUR ---
Case mgt: [facility]/Appeal outcome: Per voice mail on 11/21/18 at 1555 pm from Carlos/Leona, case #[id number] reported the appeal reconsideration outcome that " physician agreed with determination of services. Liability started on November 19. A letter will be mailed . If there is question, may call Leona at # [phone] ". Addendum: 11/22/18 at 1043 by Mary Clemente RN >> LVM to Leona to verify the message above, CM requested calling back caridad. Addendum: 11/22/18 at 1323 by Mary Clemetne RN late entry: 1220 pm: called Leona # [phone], s/w Lesley who verified the reconsideration appeal case #[id number] that the reviewed physician agreed with determination of services and liability started on 11/19/18. Lesley further stated [facility] staff already called and left message for the patient yesterday. >> Marbin and Carolyn, [facility] director met with pt at bedside to notify of the [facility]'s reconsideration outcome above. The patient stated " I will not leave. I already won twice. I will call them again ". Carolyn is to notify ELMA Palmer for further management.
--- NOTE | 2018-11-22 09:56 | NUR ---
Pain management/medication patient complaint of pain, patient requesting PRN pain medication, educated patient on use and side effects of PRN dilaudid, patient verbalized understanding, tolerated medication administration well, patient denies any additional needs at this time, patient resting in bed.
--- NOTE | 2018-11-22 10:23 | NUR ---
Smoking educated patient on importance of patient being accompanied by clinical staff for patient safety when going outside, patient verbalized understanding, security reports finding patient outside smoking without clinical staff present, nurse discharge made aware.
--- NOTE | 2018-11-22 10:40 | NUR ---
RN Rounds patient resting in bed, no acute distress noted, patient reports pain is controlled, patients friend at bedside, no additional needs at this time.
[2018-11-22 12:00] VITALS: BP_SYST 114
--- NOTE | 2018-11-22 12:20 | NUR ---
Labs Refused educated patient on purpose and procedure for lab blood draw, patient refusing to have labs drawn.
--- NOTE | 2018-11-22 12:25 | NUR ---
RN Rounds zinc furnace charger, [facility] director, and security at bedside, patient using foul language, patient calling nursing staff "stupid", patient wrote foul language towards nursing staff on foot of bed, patient stated, "you are pathetic", patient states "you are useless", patient requesting to have door closed.
--- NOTE | 2018-11-22 13:16 | NUR ---
Wound Care educated patient on purpose and procedure for wound care, patient verbalized understanding, wound care completed, patient tolerated well, patient reports pain is controlled during and after wound care, no acute distress noted, see MST shift assessment for wound care.
--- NOTE | 2018-11-22 13:25 | NUR ---
Rounds 1230 Patient in his bed. in the room was leather case finisher Marychuy and [facility] Director Carolyn to talk to patient about discharge. After partnership development manager left, I told the patient that He cannot vandalized hospital property as patients have written foul languages directly at nursing at the end of his bed. Patient replied, " Do you understand Bulgarian? Can you Read, You are stupid. " I told the patient he cannot talk to me like that. Security in the room but will not stopped insulting this victim witness administrator.
--- NOTE | 2018-11-22 13:45 | NUR ---
IV access patient states that he removed IV catheter, IV site assessed, no bleeding noted, educated patient on purpose and procedure for IV catheter placement, patient refusing to have new IV catheter placed, patient states "I don't need it".
--- NOTE | 2018-11-22 14:17 | NUR ---
Smoking patient not seen in room, called security, per security patient is outside smoking, patient has been educated several times on being accompanied by a clinical staff member for patient safety when going outside, patient has verbalized understanding, patient verbalized understanding that he is leaving the hospital building to go outside alone at his own risk.
--- NOTE | 2018-11-22 14:41 | NUR ---
patient late entry due to patient care 1415 patient is not seen in his room. patient is able to transfer from bed to his wheelchair and able to wheel himself out to go for cigarette despite multiple education that he needs to be accompanied by staff when he goes out.
--- NOTE | 2018-11-22 14:45 | NUR ---
RN Rounds patient resting in bed, patient requesting water, fresh water provided, tierney catheter emptied at this time, tierney catheter draining to gravity, no additional needs at this time.
--- NOTE | 2018-11-22 14:55 | NUR ---
Nutrition F/U RD reviewed pt's current EMR including diet Hx, physician notes, nursing notes, pertinent labs/meds/procedures, care trends and care activity. Current Diet Order: Regular High Fiber, Ensure Enlive BID and Stepan BID x 3 days Subjective information: Per bed huddle discussion, pt is awaiting transfer. BG lab value 126 (H). Pt continues to tolerate ONS and modular and continues w/ good appetite. No reports or complaints of abdominal discomfort. Current PO intake: Good 82% average of 2 meals Estimated Energy Expenditure (kcals/day) 1122-1608 kcal/day (30-35 kcal/kg Adj IBW for wt gain promotion/surgical healing) Estimated Protein Required (g/day) 74-93 gm/day (1.2-1.5 gm/kg Adj IBW for wt gain promotion/surgical healing) Estimated Fluid Required (l/day) 1.7-2 L/day (30-35 ml/kg CBW for maintenance) Problem/Etiology/Signs/Symptoms Increased nutritional needs related to metabolic demands as evidenced by estimated nutritional requirements for wt gain promotion and planned Sx. *ongoing Expected Outcomes/Goals - Monitor appetite, and PO intakes w/ goal of pt meeting at least 75% of estimated nutritional needs, labs trending WNL, normal GI function, and skin integrity/wt maintenance Dietitian Recommendations * Recommend continuing regular, high fiber diet, Ensure Enlive BID, Stepan BID (ONS provides 860 kcal/day, 45 gm protein/day) Follow Up Moderate Risk: F/U in 3-5 days
--- NOTE | 2018-11-22 14:56 | NUR ---
Dietitian Recommendations * Recommend continuing regular, high fiber diet, Ensure Enlive BID, Stepan BID (ONS provides 860 kcal/day, 45 gm protein/day). LONG-TERM, RD
--- NOTE | 2018-11-22 15:52 | NUR ---
RN Rounds patient requesting a cup of ice, provided patient with cup of ice, patient reports pain is controlled at this time, no additional needs at this time.
[2018-11-22 16:00] VITALS: BP_SYST 114; BP_SYST 116
[2018-11-22] MEDS: traZODone HCL 50 MG TABLET (DESYREL) PO SCH ×2 (17:13→17:16)
--- NOTE | 2018-11-22 17:18 | NUR ---
Medication/Refuse educated patient on use and side effects of trazodone, patient verbalized understanding, trazodone given to patient in medication cup, patient placed trazodone in hand and cupped fist, patient stated "I'll take these later", RN informed patient that medication cannot be left at the bedside, patient threw medication at RN and stated "then I don't want them", all four tablets found and wasted in pixis.
--- NOTE | 2018-11-22 17:23 | NUR ---
Physician Rounds Dr. Maher at bedside examining patient.
--- NOTE | 2018-11-22 18:49 | NUR ---
Smoking patient not in room, called security, per security patient is outside smoking, patient is aware that he is to be accompanied by clinical staff for patient safety, patient refusing to be accompanied by clinical staff.
--- NOTE | 2018-11-22 19:10 | NUR ---
CHANGE OF SHIFT; pt. was not in the room when checked with dayshift RN, apparently pt. out smoking.
--- NOTE | 2018-11-22 19:15 | NUR ---
Closing Note bedside SBAR report given to receiving RN, patient back in room, patient resting in bed, no acute distress noted, educated patient on use of call light and asked to call for assistance, patient verbalized understanding, call light in reach, educated patient on use of bed alarm for patient safety, refusing bed alarm, bed in low and locked position, care endorsed to manufacturing shift supervisor RN.
--- NOTE | 2018-11-22 19:40 | NUR ---
NOTES; pt. back to his room, still on his wheelchair. offered to change his beddings and asked to change his gown since its wet. VS checked, calmer this time and not yelling. pt. aware of discharge to [facility] and agreed on it as planned. noted pt. IV on rt. forearm is gone and told me he pulled it out and day shift RN is aware of it. left leg/knee with delilah bandage intact. tierney cath to OSD. pt. refused bed alarm to be on, and he is aware of safety issues. written bad comments on tape on the edge of the foot of the bed was removed when I came on. pt. said he just go outside to smoke whenever he wants, but reminded to always alert the nurse and verbalized he has done it all day. complete bed linens changed. and cleared up his table. call light within reach.
[2018-11-22 20:00] VITALS: BP_SYST 125
--- NOTE | 2018-11-22 20:50 | NUR ---
NOTES: due medications given. pt. needs attended. pt. resting in bed.
[2018-11-22] MEDS: DIPHENHYDRAMINE HCL 50 MG CAPSULE PO PRN (20:53)
[2018-11-22] MEDS: ENOXAPARIN SODIUM 40 MG/0.4 ML SYRINGE SUBCUT SCH (20:53)
--- NOTE | 2018-11-22 22:15 | NUR ---
NOTES: pt. medicated for c/o left leg pain post op and also his neck and back. repositioned self for comfort.
--- NOTE | 2018-11-22 23:30 | NUR ---
NOTES: pt. noted relief from pain, sleeping at this time.
--- NOTE | 2018-11-23 | NUR ---
NOTES: condition unchanged. no further complaints.
[2018-11-23] MEDS: HYDROmorphone 2 MG TAB PO PRN ×4 (02:19→14:32)
--- NOTE | 2018-11-23 02:30 | NUR ---
NOTES: pt. was medicated by ZACHARY Timmons for c/o post op left leg pain.
--- NOTE | 2018-11-23 03:30 | NUR ---
NOTES: pt. sleeping when checked, noted relief. condition unchanged.
--- NOTE | 2018-11-23 04:10 | NUR ---
NOTES: pt. awakened asking for warm blanket but still noted sweating, gown is wet. pt. try to go back to sleep, needs attended. call light within reach.
--- NOTE | 2018-11-23 05:00 | NUR ---
NOTES: pt. called and wants beddings changed again since it got wet and sweats a lot. complete line changed and gown. assisted on am care. both feet cleaned, dried and applied lotion and new pair of socks. repositioned self. kept dry and warm with blanket. niall zuñiga, pt. said its leaks at times and gets clogged, does his own to fix the problem, wants asepto syringe at bedside at all times. Addendum: 11/23/18 at 0542 by Kiki Bello RN noted left foot appears swollen, rt. foot normal. also some bruising on left ant. mid leg noted when cleaning his feet.
[2018-11-23 05:30] VITALS: BP_SYST 120
--- NOTE | 2018-11-23 06:30 | NUR ---
NOTES; medicated for c/o left leg pain, repositioned self. needs attended.
--- NOTE | 2018-11-23 06:50 | NUR ---
CLOSING NOTES; pt. resting, no acute distress, pt. aware of fall precautions, no bed alarm per pt. request. schedule to go to [facility] today.
--- NOTE | 2018-11-23 08:59 | NUR ---
At the beginning of the shift,pt in bed, awake,alert,no c/o,room air,call light in reach,will monitor
[2018-11-23] MEDS: NICOTINE 21 MG/24 HR PATCH.TD24 TD SCH (09:00)
--- NOTE | 2018-11-23 09:01 | NUR ---
Dr. Dent Window Maker here.
[2018-11-23] MEDS: BACLOFEN 10 MG TABLET PO SCH ×2 (10:02→12:52)
[2018-11-23] MEDS: MULTIVITAMINS TAB 1 TABLET PO SCH (10:02)
[2018-11-23] MEDS: ASPIRIN 325 MG TABLET PO SCH (10:02)
[2018-11-23] MEDS: MAGNESIUM OXIDE 400 MG TABLET PO SCH (10:03)
[2018-11-23] MEDS: CHOLECALCIFEROL (VITAMIN D3) 2,000 UNIT TABLET PO SCH (10:03)
[2018-11-23] MEDS: busPIRone HCL 5 MG TABLET PO SCH ×2 (10:03→14:32)
[2018-11-23] MEDS: DIPHENHYDRAMINE HCL 50 MG CAPSULE PO PRN (10:03)
--- NOTE | 2018-11-23 10:44 | NUR ---
Discharge Planning: [facility] (f [phone] p [phone]) Roula ellis. Addendum: 11/23/18 at 1428 by Alexandra SMITH [facility] (f [phone] p [phone]) Heshma perez. CARLOTA made DON aware.
[2018-11-23 12:32] VITALS: BP_SYST 100
[2018-11-23] MEDS: ACETAMINOPHEN 325 MG TABLET PO PRN (12:49)
--- NOTE | 2018-11-23 13:38 | NUR ---
PATIENT WENT OUTSIDE TO SMOKE WITHOUT SUPERVISION OF A NURSE OR BUSINESS ANALYSIS CONSULTANT. THE CHARGE NURSE WAS NOTIFIED
[2018-11-23 13:46] LABS: BASOPHILS # (AUTO) 0.1 K/uL (0.0-0.2); BASOPHILS % (AUTO) 0.7 % (0.0-2.0); EOSINOPHILS # (AUTO) 0.3 K/uL (0.0-0.4); EOSINOPHILS % (AUTO) 2.8 % (0.0-4.0); HEMOGLOBIN 10.5 g/dL (14.0-18.0); LYMPHOCYTES # (AUTO) 2.4 K/uL (1.0-5.5); LYMPHOCYTES % (AUTO) 21.9 % (20.5-51.5); MEAN CORPUSCULAR HEMOGLOBIN 26 pg (27-31); MEAN CORPUSCULAR HGB CONC 33 % (32-36); MEAN CORPUSCULAR VOLUME 78 fL (79.0-98.0); MONOCYTES # (AUTO) 0.6 K/uL (0.0-1.0); MONOCYTES % (AUTO) 5.5 % (1.7-9.3); NEUTROPHILS # (AUTO) 7.6 K/uL (1.8-7.7); NEUTROPHILS % (AUTO) 69.1 % (40.0-70.0); RED BLOOD CELL COUNT(AUTO) 4.11 MIL/uL (4.2-6.2); RED CELL DISTRIBUTION WIDTH 25.6 % (9.0-15.0); WHITE BLOOD COUNT (AUTO) 10.9 K/uL (4.8-10.8)
--- NOTE | 2018-11-23 13:46 | NUR ---
Wound Re-Evaluation: Late note for 1220 secondary to patient care. Patient re-evaluated for a low Vishal score of 14. Patient was awake, alert, oriented, and received in a Cantrall Bed with an IsoFlex MICHAEL mattress. Patient has Paraplegia, but is able to turn in bed. Recommend encourage and assist patient as needed with repositioning side to side only every 2 hours with pillow support. Elevate, off-load and float bilateral heels with pillows. Offload pressure areas with pillows for pressure re-distribution. Perform skin care and monitor skin integrity Q shift. Use moisture barrier cream on moisture susceptible areas QID and PRN for soiling. Skin assessment: 1. Right Lateral Hip: Scar tissue from a healed surgical incision, present on admission. 2. Right Lateral Hip, inferior to site 3: Scar tissue from a healed surgical incision, present on admission. 3. Right Lateral Hip, inferior to site 1: Healing surgical incision, present on admission. Incision is approximated/healed with pink scar tissue, and has steri-strips. Doni were recently removed. No odor, no drainage. Surgical incision intact. Recommend: No dressings needed. Continue to monitor sites every shift. 4. Left knee: Surgical incision. Site is approximated, with one small black scab near the center, with 26 doni. No odor, no drainage. Periwound is pink. Site measures 15.5 cm x 0.5 cm. 5. Left knee, left lateral to wound 4: Surgical incision. Site is approximated, with one small black scab near the center, with 2 doni. No odor, no drainage. Periwound is pink. Site measures 1.0 cm x 0.1 cm. 6. Left knee, inferior to wound 5: Surgical incision. Site is approximated, with one small black scab near the center, with 1 staple. No odor, no drainage. Periwound is pink. Site measures 0.9 cm x 0.1 cm.. Recommend: Cleanse sites with normal saline. Apply sure prep to hemanth-incisions. Cover with dressings for protection. Perform wound care daily, and as needed for dressing soiling or dislodgment.
[2018-11-23 13:48] LABS: PLATELET COUNT (AUTO) 910 K/uL (130-430)
--- NOTE | 2018-11-23 16:00 | NUR ---
0800 V/S 97.0-98%-79-102/69-20
[2018-11-23 16:44] VITALS: BP_SYST 108
[2018-11-23 16:58] VITALS: BP_SYST 103
--- NOTE | 2018-11-23 17:59 | NUR ---
1515 PT ALERT,ORIENTED,ROOM AIR,NO C/O,DISCHARGE HOME VIA PT OWN W/C AND TRANSPORTATION,[facility] D/C
== END 2018-11-23 15:15 | disposition home or self-care (01) | DRG 481 ==
LOC: SED 21:39 → STU 23:23 → SMU 11-05 16:11
PROVIDERS: ADMIT Internal Medicine; ATTEND Internal Medicine
PROC: 30233N1 Transfusion of Nonautologous Red Blood Cells into Peripheral Vein, Percutaneous Approach (ICD-10-PCS; 2018-11-06)
PROC: 0QSC06Z Reposition Left Lower Femur with Intramedullary Internal Fixation Device, Open Approach (ICD-10-PCS; principal; 2018-11-07 13:00)
DX: S72.452A Displaced supracondylar fracture without intracondylar extension of lower end of left femur, initial encounter for closed fracture (principal); E44.1 Mild protein-calorie malnutrition; G82.20 Paraplegia, unspecified; M25.062 Hemarthrosis, left knee; E87.1 Hypo-osmolality and hyponatremia; D62 Acute posthemorrhagic anemia; N31.9 Neuromuscular dysfunction of bladder, unspecified; K56.41 Fecal impaction; F17.210 Nicotine dependence, cigarettes, uncomplicated; F41.9 Anxiety disorder, unspecified; F32.9 Major depressive disorder, single episode, unspecified; G89.4 Chronic pain syndrome; D47.3 Essential (hemorrhagic) thrombocythemia; J43.9 Emphysema, unspecified; I70.90 Unspecified atherosclerosis; D63.8 Anemia in other chronic diseases classified elsewhere; M81.0 Age-related osteoporosis without current pathological fracture; X58.XXXA Exposure to other specified factors, initial encounter; Y93.89 Activity, other specified; Y92.818 Other transport vehicle as the place of occurrence of the external cause; Y99.8 Other external cause status; Z79.82 Long term (current) use of aspirin; Z68.20 Body mass index [BMI] 20.0-20.9, adult; Z87.440 Personal history of urinary (tract) infections; Z90.49 Acquired absence of other specified parts of digestive tract; Z71.6 Tobacco abuse counseling; Z59.0 Homelessness; Z91.81 History of falling
CPT/HCPCS: 36415; 71045; 73521; 73552; 73560-TC; 76000; 76700-TC; 80048; 80053; 81000-TC; 82728; 83540-TC; 83550-TC; 83605; 84484; 85007; 85025; 85027; 85610-TC; 85651-TC; 85730-TC; 86140; 86886; 86900; 86901; 86920; 87040-TC; 87081; 93005; 94010; 96374; 96375; 99285; A6261; C1713; C1769; G0378; J0295; J0690; J1170; J1200; J1650; J2250; J2270; J2405; J2543; J2704; J2916; J7030; J7050; J7060; J7120; P9021; Q0163

== ENCOUNTER 2018-12-20 04:01 | Emergency (ER) | payer OTHER, MEDICAID ==
[~2018-12-20] VITALS: Ht 170.2 cm; Wt 51.3 kg
[~2018-12-20 04:01] MED LIST changes: +ACET325T53 PO; +ACT35 PO; -BISA-79 PO; +BUSP5TAB3 PO; -DOCU250C14 PO; -HYDR2TAB34 PO; +Multivitamins Tab PO; +NICO-681 TD; -OXYC60TA8 PO; +TEMA15CA5 PO; +TRAZ-218 PO
[2018-12-20 04:05] VITALS: BP_SYST 108
[2018-12-20 04:49] LABS: BASOPHILS # (AUTO) 0.1 K/uL (0.0-0.2); BASOPHILS % (AUTO) 1.1 % (0.0-2.0); EOSINOPHILS # (AUTO) 0.2 K/uL (0.0-0.4); HEMATOCRIT 36.1 % (36-54); HEMOGLOBIN 11.9 g/dL (14.0-18.0); LYMPHOCYTES # (AUTO) 2.7 K/uL (1.0-5.5); LYMPHOCYTES % (AUTO) 23.6 % (20.5-51.5); MEAN CORPUSCULAR HEMOGLOBIN 23 pg (27-31); MEAN CORPUSCULAR HGB CONC 33 % (32-36); MEAN CORPUSCULAR VOLUME 70 fL (79.0-98.0); MONOCYTES % (AUTO) 8.6 % (1.7-9.3); NEUTROPHILS # (AUTO) 7.4 K/uL (1.8-7.7); NEUTROPHILS % (AUTO) 64.7 % (40.0-70.0); PLATELET COUNT (AUTO) 615 K/uL (130-430); RED BLOOD CELL COUNT(AUTO) 5.13 MIL/uL (4.2-6.2); RED CELL DISTRIBUTION WIDTH 23.2 % (9.0-15.0); WHITE BLOOD COUNT (AUTO) 11.5 K/uL (4.8-10.8)
[2018-12-20 04:59] LABS: CALCIUM 8.7 mg/dL (8.4-11.0); CREATININE 0.39 mg/dL (0.55-1.30); POTASSIUM 3.3 mmol/L (3.5-5.1)
[2018-12-20 05:05] LABS: ALBUMIN 3.2 g/dL (3.4-4.8); TOTAL BILIRUBIN 0.5 mg/dL (0.0-1.0)
[2018-12-20 05:22] LABS: BILIRUBIN,URINE NEGATIVE (NEGATIVE); BLOOD, URINE NEGATIVE (NEGATIVE); CLARITY/URINE HAZY (CLEAR); COLOR,URINE YELLOW (YELLOW); GLUCOSE,URINE NEGATIVE (NEGATIVE); KETONES,URINE NEGATIVE (NEGATIVE); LEUKOCYTE ESTERASE ,URINE 3+ (NEGATIVE); NITRITE, URINE NEGATIVE (NEGATIVE); PROTEIN URINE NEGATIVE (NEGATIVE); UROBILINOGEN,URINE 0.2 (0.2-1.0)
[2018-12-20 05:38] LABS: BACTERIA,URINE MANY /HPF (None Seen); RBC,URINE 0-3 /HPF (0-3); WBC,URINE 50-80 /HPF (0-3)
[2018-12-20] MEDS ORDERED: cefTRIAXone 1 GM IVPB PREMIX 50 ML IV ONE (06:00)
[2018-12-20] MEDS ORDERED: CEPHALEXIN 500 MG CAPSULE PO ONE (06:15)
== END 2018-12-20 06:16 | disposition left against medical advice (07) ==
LOC: SED 04:01
DX: R10.9 Unspecified abdominal pain (principal); Z53.20 Procedure and treatment not carried out because of patient's decision for unspecified reasons; Z79.899 Other long term (current) drug therapy
CPT/HCPCS: 36415; 80053; 81000; 85025; 87086; 99283; J0696; 87186-TC

== ENCOUNTER 2019-04-17 11:05 | Emergency (ER) | payer OTHER, MEDICAID ==
[~2019-04-17] VITALS: Ht 170.2 cm; Wt 51.3 kg
[~2019-04-17 11:05] MED LIST changes: -TRAZ-218 PO; +TRAZ-250 PO
[2019-04-17 11:12] VITALS: BP_SYST 127
--- NOTE | 2019-04-17 11:16 | NUR ---
Patient triaged and placed in waiting room. VSS and patient appears in no acute distress at this time. Accompanied by SELF, awaiting available bed, and MD notified of need for MSE.
--- NOTE | 2019-04-17 14:09 | NUR ---
Called pt, no answer
--- NOTE | 2019-04-17 14:35 | NUR ---
Pt called, no answer
--- NOTE | 2019-04-17 14:58 | NUR ---
Called pt, no answer. Pt LWBS
== END 2019-04-17 14:58 | disposition left against medical advice (07) ==
LOC: SED 11:05
DX: R09.81 Nasal congestion (principal); Z53.21 Procedure and treatment not carried out due to patient leaving prior to being seen by health care provider

== ENCOUNTER 2019-04-19 16:41 | Emergency (ER) | payer OTHER, MEDICAID ==
[~2019-04-19] VITALS: Ht 170.2 cm; Wt 52.2 kg
[2019-04-19 17:21] VITALS: BP_SYST 125
[2019-04-19] MEDS ORDERED: MORPHINE 4 MG/ML INJ. SYRINGE IM ONE (18:00)
[2019-04-19] MEDS ORDERED: KETOROLAC TROMETHAMINE 60 MG/2 ML VIAL IM ONE (18:15)
[2019-04-19 18:59] VITALS: BP_SYST 125
== END 2019-04-19 18:40 | disposition home or self-care (01) ==
LOC: SED 16:41
DX: J11.1 Influenza due to unidentified influenza virus with other respiratory manifestations (principal); R19.7 Diarrhea, unspecified; Z79.899 Other long term (current) drug therapy
CPT/HCPCS: 87086; 96372; 99283; J1885

== ENCOUNTER 2019-04-23 15:11 | Emergency (ER) | payer OTHER, MEDICAID ==
[~2019-04-23] VITALS: Ht 170.2 cm; Wt 49.9 kg
[2019-04-23 15:18] VITALS: BP_SYST 97
[2019-04-23] MEDS ORDERED: NACL 0.9% 1,000 ML IV ONE ×2 (15:25→16:15)
[2019-04-23] MEDS ORDERED: DIPHENOXYLATE HCL/ATROP SULF 2.5 MG TAB PO ONE (16:15)
--- NOTE | 2019-04-23 16:20 | NUR ---
Patient to ER bed 05 to gown for evaluation. Side rails up.
--- NOTE | 2019-04-23 16:30 | NUR ---
# 16 FR In and Out catheter with use of sterile technique. Immediate return of 100 ml clear dark yellow urine noted. Urine sample collected and sent to lab. Pt tolerated procedure well. Patient able to self catheterize himself.
--- NOTE | 2019-04-23 16:31 | NUR ---
Patient arrived in the ED c/o diarrhea, fevers, cough, back pain and chills that started 6 days ago. Patient is taking Ciprofloxacin. Patient is alert and oriented x4, respirations even and unlabored, speaking in full sentences and ambulating using a wheelchair. VSS, pain level 7/10. Informed of wait time. Instructed to notify ED staff for any changes in condition while waiting to be seen by the doctor. Patient verbalized understanding.
--- NOTE | 2019-04-23 16:35 | NUR ---
# 20 gauge angiocath placed to LFA. Use of asceptic technique. Opsite placed over site. Blood return noted. Blood for lab drawn from site. Flushed with 10 cc of normal saline. No evidence of infiltration noted. Patient tolerated well.
--- NOTE | 2019-04-23 16:40 | NUR ---
ER at bedside examining patient.
--- NOTE | 2019-04-23 17:08 | NUR ---
ECG done at bedside as ordered by Dr. Zavala. Patient tolerated the procedure well.
[2019-04-23 17:15] LABS: CALCIUM 8.5 mg/dL (8.4-11.0); CREATININE 0.45 mg/dL (0.55-1.30)
[2019-04-23 17:29] LABS: ALBUMIN 3.3 g/dL (3.4-4.8); TOTAL BILIRUBIN 0.6 mg/dL (0.0-1.0)
[2019-04-23 17:35] LABS: HEMATOCRIT 36.7 % (36-54); HEMOGLOBIN 11.9 g/dL (14.0-18.0); MEAN CORPUSCULAR HEMOGLOBIN 22 pg (27-31); MEAN CORPUSCULAR HGB CONC 32 % (32-36); MEAN CORPUSCULAR VOLUME 68 fL (79.0-98.0); PLATELET COUNT (AUTO) 526 K/uL (130-430); RED BLOOD CELL COUNT(AUTO) 5.43 MIL/uL (4.2-6.2); RED CELL DISTRIBUTION WIDTH 16.2 % (9.0-15.0); WHITE BLOOD COUNT (AUTO) 9.3 K/uL (4.8-10.8)
[2019-04-23 17:36] LABS: PROTHROMBIN TIME 9.8 SECS (9.5-12.5)
[2019-04-23 17:59] LABS: BILIRUBIN,URINE NEGATIVE (NEGATIVE); BLOOD, URINE NEGATIVE (NEGATIVE); COLOR,URINE YELLOW (YELLOW); GLUCOSE,URINE NEGATIVE (NEGATIVE); KETONES,URINE NEGATIVE (NEGATIVE); LEUKOCYTE ESTERASE ,URINE TRACE (NEGATIVE); NITRITE, URINE NEGATIVE (NEGATIVE); PROTEIN URINE TRACE (NEGATIVE); UROBILINOGEN,URINE 0.2 (0.2-1.0)
[2019-04-23] MEDS ORDERED: MORPHINE 4 MG/ML INJ. SYRINGE IVP ONE (18:30)
[2019-04-23 18:42] LABS: CLARITY/URINE HAZY (CLEAR)
[2019-04-23 18:48] LABS: BACTERIA,URINE FEW /HPF (None Seen); MUCUS,URINE 2+ /LPF (None Seen); RBC,URINE 0-3 /HPF (0-3)
--- NOTE | 2019-04-23 18:50 | NUR ---
Administered Morphine 4mg IVP as ordered by Dr. Zavala. Patient tolerated the medication well.
[2019-04-23 19:22] VITALS: BP_SYST 97
--- NOTE | 2019-04-23 19:22 | NUR ---
Patient left against medical advise. Signed AMA form. Patient ambulated using his wheelchair, in stable condition.
[2019-04-23 20:24] LABS: BAND % (MANUAL) 9 % (0-6); BASOPHILS % (MANUAL) 0 % (0-2); EOSINOPHILS % (MANUAL) 1 % (0-7); LYMPHOCYTES % (MANUAL) 17 % (20-46); MONOCYTES % (MANUAL) 11 % (0-11)
== END 2019-04-23 19:22 | disposition left against medical advice (07) ==
LOC: SED 15:11
DX: K52.9 Noninfective gastroenteritis and colitis, unspecified (principal); Z79.899 Other long term (current) drug therapy
CPT/HCPCS: 36415; 71045; 80053; 81000; 82150; 82550; 83605; 83690; 84484; 85007; 85027; 85610; 85730; 87040; 87086; 93005; 96361; 96374; 99284; J2270; J7030

== ENCOUNTER 2019-07-05 21:27 | Inpatient (IN) | payer OTHER, MEDICAID ==
[~2019-07-05] VITALS: Ht 170.2 cm; Wt 51.3 kg
[2019-07-05 21:49] VITALS: BP_SYST 134
[2019-07-05] MEDS ORDERED: NACL 0.9% 1,000 ML IV ONE (22:15)
[2019-07-05 22:59] LABS: BILIRUBIN,URINE NEGATIVE (NEGATIVE); BLOOD, URINE NEGATIVE (NEGATIVE); CLARITY/URINE CLEAR (CLEAR); COLOR,URINE YELLOW (YELLOW); GLUCOSE,URINE NEGATIVE (NEGATIVE); KETONES,URINE NEGATIVE (NEGATIVE); LEUKOCYTE ESTERASE ,URINE TRACE (NEGATIVE); NITRITE, URINE NEGATIVE (NEGATIVE); PH,URINE 6.5 (5.0-8.0); PROTEIN URINE NEGATIVE (NEGATIVE)
[2019-07-05 23:03] LABS: HEMATOCRIT 40.2 % (36-54); HEMOGLOBIN 12.9 g/dL (14.0-18.0); MEAN CORPUSCULAR HEMOGLOBIN 22 pg (27-31); MEAN CORPUSCULAR HGB CONC 32 % (32-36); MEAN CORPUSCULAR VOLUME 67 fL (79.0-98.0); PLATELET COUNT (AUTO) 592 K/uL (130-430); RED BLOOD CELL COUNT(AUTO) 5.98 MIL/uL (4.2-6.2); WHITE BLOOD COUNT (AUTO) 14.6 K/uL (4.8-10.8)
[2019-07-05 23:08] LABS: ANION GAP 13 (5-15); CHLORIDE 98 mmol/L (98-107); CREATININE 0.79 mg/dL (0.55-1.30); GLUCOSE 104 mg/dL (70-99); POTASSIUM 3.3 mmol/L (3.5-5.1); SODIUM SERUM 137 mmol/L (136-145); UREA NITROGEN, BLOOD 23 mg/dL (8-21)
[2019-07-05 23:09] LABS: BACTERIA,URINE FEW /HPF (None Seen)
[2019-07-05 23:10] LABS: BARBITURATE, URINE NEGATIVE (NEG <=200); BENZODIAZEPINE, URINE NEGATIVE (NEG <=150); CANNABINOID, URINE POSITIVE (NEG <=50); COCAINE, URINE NEGATIVE (NEG <=150); METHAMPHETAMINES SCREEN,URINE POSITIVE (NEG <=500); OPIATE, URINE NEGATIVE (NEG <=100); PHENCYCLIDINE SCREEN,URINE NEGATIVE (NEG <=25); UR TRICYCLIC ANTIDEPRESSANTS POSITIVE (NEG <=300); URINE AMPHETAMINE POSITIVE (NEG <=500); URINE METHADONE NEGATIVE (NEG <=200); URINE OXYCODONE SCREEN NEGATIVE (NEG <=100); URINE PROPOXYPHENE SCREEN NEGATIVE (NEG <=300)
[2019-07-05 23:12] LABS: ALANINE AMINOTRANSFERASE 56 U/L (12-78); ALBUMIN 3.5 g/dL (3.4-4.8); ALCOHOL, BLOOD 4 mg/dL (<10); ASPARTATE AMINOTRANSFERASE 24 U/L (10-37); TOTAL BILIRUBIN 0.6 mg/dL (0.0-1.0)
[2019-07-05 23:14] LABS: ACETAMINOPHEN < 1 ug/mL (1-30); GFR AFRICAN AMERICAN 131 mL/min (>90)
[2019-07-05 23:24] LABS: BASOPHILS % (MANUAL) 0 % (0-2); EOSINOPHILS % (MANUAL) 2 % (0-7); LYMPHOCYTES % (MANUAL) 8 % (20-46); MONOCYTES % (MANUAL) 13 % (0-11)
[2019-07-05] MEDS ORDERED: KETOROLAC TROMETHAMINE 30 MG VIAL IVP ONE (23:30)
[2019-07-06 02:50] VITALS: BP_SYST 117
[2019-07-06] MEDS: HYDROcodone/ACETAMIN 5-325 MG TAB (NORCO/ VICODIN) PO PRN ×4 (03:22→23:48)
[2019-07-06 08:00] VITALS: BP_SYST 117
[2019-07-06] MEDS ORDERED: POTASSIUM CHLORIDE 20 MEQ TAB.PRT.SR PO ONE (09:00)
[2019-07-06] MEDS ORDERED: NICOTINE 21 MG/24 HR PATCH.TD24 TD ONE (12:15)
[2019-07-06 12:23] VITALS: BP_SYST 94
[2019-07-06] MEDS ORDERED: IPRATROPIUM/ALBUTEROL SULFATE 3 ML AMPUL.NEB (DUONEB) INH PRN (12:30)
[2019-07-06] MEDS ORDERED: MILK OF MAGNESIA 30 ML UDC PO PRN ×2 (12:30)
[2019-07-06] MEDS ORDERED: BISACODYL 10 MG/SUPPOSITORY RC PRN (12:30)
[2019-07-06] MEDS ORDERED: BISACODYL 5 MG TABLET.DR (DULCOLAX) PO ONE (12:30)
[2019-07-06] MEDS ORDERED: BISACODYL 5 MG TABLET.DR (DULCOLAX) PO PRN (12:30)
[2019-07-06] MEDS ORDERED: PIPERACILLIN/TAZO 3.375/DEX-IS 50 ML IV ONE (12:45)
[2019-07-06] MEDS ORDERED: LACTOBACILLUS RHAMNOSUS GG 1 CAP CAPSULE PO ONE (12:45)
[2019-07-06 14:49] VITALS: BP_SYST 94
[2019-07-06 16:30] VITALS: BP_SYST 110
[2019-07-06] MEDS: LORazepam 1 MG TABLET PO PRN (17:55)
[2019-07-06] MEDS: PIPERACILLIN/TAZO 3.375/DEX-IS 50 ML IV SCH ×2 (17:55→23:28)
[2019-07-06 20:00] VITALS: BP_SYST 112
[2019-07-06] MEDS: LACTOBACILLUS RHAMNOSUS GG 1 CAP CAPSULE PO SCH (22:14)
[2019-07-06] MEDS: TEMAZEPAM 15 MG CAPSULE PO SCH (22:15)
[2019-07-07 01:22] VITALS: BP_SYST 108
[2019-07-07] MEDS: PIPERACILLIN/TAZO 3.375/DEX-IS 50 ML IV SCH ×3 (05:37→18:45)
[2019-07-07 06:21] LABS: ALBUMIN 2.9 g/dL (3.4-4.8); CALCIUM 8.2 mg/dL (8.4-11.0); CREATININE 0.54 mg/dL (0.55-1.30); POTASSIUM 4.1 mmol/L (3.5-5.1); TOTAL BILIRUBIN 0.5 mg/dL (0.0-1.0)
[2019-07-07 07:05] LABS: HEMATOCRIT 35.7 % (36-54); HEMOGLOBIN 11.5 g/dL (14.0-18.0); MEAN CORPUSCULAR HEMOGLOBIN 22 pg (27-31); MEAN CORPUSCULAR HGB CONC 32 % (32-36); MEAN CORPUSCULAR VOLUME 68 fL (79.0-98.0); PLATELET COUNT (AUTO) 555 K/uL (130-430); RED BLOOD CELL COUNT(AUTO) 5.25 MIL/uL (4.2-6.2); RED CELL DISTRIBUTION WIDTH 16.2 % (9.0-15.0); WHITE BLOOD COUNT (AUTO) 10.3 K/uL (4.8-10.8)
[2019-07-07 08:05] VITALS: BP_SYST 124
[2019-07-07] MEDS: POTASSIUM CHLORIDE 20 MEQ TAB.PRT.SR PO SCH (08:33)
[2019-07-07] MEDS: NICOTINE 21 MG/24 HR PATCH.TD24 TD SCH (08:33)
[2019-07-07] MEDS: LACTOBACILLUS RHAMNOSUS GG 1 CAP CAPSULE PO SCH ×2 (08:33→20:30)
[2019-07-07] MEDS: HYDROcodone/ACETAMIN 5-325 MG TAB (NORCO/ VICODIN) PO PRN ×2 (08:34→13:12)
[2019-07-07 08:51] LABS: BASOPHILS % (MANUAL) 0 % (0-2); EOSINOPHILS % (MANUAL) 1 % (0-7); LYMPHOCYTES % (MANUAL) 26 % (20-46); MONOCYTES % (MANUAL) 8 % (0-11)
[2019-07-07 12:36] VITALS: BP_SYST 113
[2019-07-07] MEDS: LORazepam 1 MG TABLET PO PRN (13:13)
[2019-07-07] MEDS ORDERED: BALSAM PERU/CASTOR OIL 60 GM OINT...G. TP ONE (13:30)
[2019-07-07 16:35] VITALS: BP_SYST 131
[2019-07-07] MEDS ORDERED: HYDROcodone/ACETAMIN 10-325 MG TAB PO PRN (18:45)
[2019-07-07] MEDS: TEMAZEPAM 15 MG CAPSULE PO SCH (20:30)
[2019-07-07] MEDS: HYDROmorphone 2 MG TAB PO PRN (20:31)
[2019-07-07 20:47] VITALS: BP_SYST 135
[2019-07-08] MEDS: PIPERACILLIN/TAZO 3.375/DEX-IS 50 ML IV SCH ×5 (00:12→23:42)
[2019-07-08] MEDS: LORazepam 1 MG TABLET PO PRN ×3 (00:12→18:30)
[2019-07-08 01:20] VITALS: BP_SYST 129
[2019-07-08] MEDS: HYDROmorphone 2 MG TAB PO PRN ×4 (03:45→23:44)
[2019-07-08] MEDS: DULoxetine HCL 30 MG CAPSULE.DR (CYMBALTA) PO SCH ×2 (08:34→08:37)
[2019-07-08] MEDS: NICOTINE 21 MG/24 HR PATCH.TD24 TD SCH (08:34)
[2019-07-08] MEDS: POTASSIUM CHLORIDE 20 MEQ TAB.PRT.SR PO SCH (08:34)
[2019-07-08] MEDS: LACTOBACILLUS RHAMNOSUS GG 1 CAP CAPSULE PO SCH ×2 (08:34→21:27)
[2019-07-08 08:40] VITALS: BP_SYST 109
[2019-07-08 12:23] VITALS: BP_SYST 119
[2019-07-08 16:52] VITALS: BP_SYST 122
[2019-07-08 20:00] VITALS: BP_SYST 110
[2019-07-08] MEDS: TEMAZEPAM 15 MG CAPSULE PO SCH (21:27)
[2019-07-09 00:19] VITALS: BP_SYST 101
[2019-07-09] MEDS: PIPERACILLIN/TAZO 3.375/DEX-IS 50 ML IV SCH ×4 (05:08→23:34)
[2019-07-09 06:08] LABS: CALCIUM 7.9 mg/dL (8.4-11.0); CREATININE 0.41 mg/dL (0.55-1.30); POTASSIUM 4.1 mmol/L (3.5-5.1)
[2019-07-09 07:26] LABS: BASOPHILS # (AUTO) 0.1 K/uL (0.0-0.2); BASOPHILS % (AUTO) 0.6 % (0.0-2.0); EOSINOPHILS # (AUTO) 0.2 K/uL (0.0-0.4); EOSINOPHILS % (AUTO) 1.8 % (0.0-4.0); HEMATOCRIT 38.8 % (36-54); HEMOGLOBIN 12.3 g/dL (14.0-18.0); LYMPHOCYTES # (AUTO) 2.7 K/uL (1.0-5.5); LYMPHOCYTES % (AUTO) 22.6 % (20.5-51.5); MEAN CORPUSCULAR HEMOGLOBIN 21 pg (27-31); MEAN CORPUSCULAR HGB CONC 32 % (32-36); MEAN CORPUSCULAR VOLUME 67 fL (79.0-98.0); MONOCYTES # (AUTO) 0.7 K/uL (0.0-1.0); MONOCYTES % (AUTO) 6.2 % (1.7-9.3); NEUTROPHILS # (AUTO) 8.3 K/uL (1.8-7.7); PLATELET COUNT (AUTO) 617 K/uL (130-430); RED BLOOD CELL COUNT(AUTO) 5.78 MIL/uL (4.2-6.2); RED CELL DISTRIBUTION WIDTH 15.8 % (9.0-15.0)
[2019-07-09 07:31] LABS: NEUTROPHILS % (AUTO) 68.8 % (40.0-70.0)
[2019-07-09 08:00] VITALS: BP_SYST 108
[2019-07-09] MEDS: NICOTINE 21 MG/24 HR PATCH.TD24 TD SCH (08:23)
[2019-07-09] MEDS: DULoxetine HCL 30 MG CAPSULE.DR (CYMBALTA) PO SCH (08:23)
[2019-07-09] MEDS: BALSAM PERU/CASTOR OIL 60 GM OINT...G. TP SCH (08:23)
[2019-07-09] MEDS: HYDROmorphone 2 MG TAB PO PRN ×3 (08:24→20:21)
[2019-07-09] MEDS: LACTOBACILLUS RHAMNOSUS GG 1 CAP CAPSULE PO SCH ×2 (08:24→20:20)
[2019-07-09] MEDS: POTASSIUM CHLORIDE 20 MEQ TAB.PRT.SR PO SCH (08:24)
[2019-07-09 09:00] VITALS: BP_SYST 108
[2019-07-09 12:00] VITALS: BP_SYST 102
[2019-07-09] MEDS: LORazepam 1 MG TABLET PO PRN ×2 (15:46→22:46)
[2019-07-09 16:00] VITALS: BP_SYST 112
[2019-07-09] MEDS: HYDROcodone/ACETAMIN 5-325 MG TAB (NORCO/ VICODIN) PO PRN (18:31)
[2019-07-09 20:00] VITALS: BP_SYST 117
[2019-07-09] MEDS: TEMAZEPAM 15 MG CAPSULE PO SCH (20:20)
[2019-07-10 00:16] VITALS: BP_SYST 99
[2019-07-10] MEDS: PIPERACILLIN/TAZO 3.375/DEX-IS 50 ML IV SCH (05:08)
[2019-07-10 07:55] VITALS: BP_SYST 101
[2019-07-10] MEDS: LACTOBACILLUS RHAMNOSUS GG 1 CAP CAPSULE PO SCH ×2 (08:54→09:00)
[2019-07-10] MEDS: POTASSIUM CHLORIDE 20 MEQ TAB.PRT.SR PO SCH ×2 (08:54→09:00)
[2019-07-10] MEDS: NICOTINE 21 MG/24 HR PATCH.TD24 TD SCH (08:54)
[2019-07-10] MEDS: DULoxetine HCL 30 MG CAPSULE.DR (CYMBALTA) PO SCH ×2 (08:54→09:00)
[2019-07-10] MEDS: BALSAM PERU/CASTOR OIL 60 GM OINT...G. TP SCH (08:54)
[2019-07-10] MEDS: HYDROmorphone 2 MG TAB PO PRN (09:04)
[2019-07-13] MEDS ORDERED: RISEDRONATE SODIUM 35 MG TABLET PO SCH (06:00)
== END 2019-07-10 10:47 | disposition left against medical advice (07) | DRG 872 ==
LOC: SED 21:27 → SMU 07-06 01:06
PROVIDERS: ADMIT Internal Medicine; ATTEND Internal Medicine
DX: A41.9 Sepsis, unspecified organism (principal); E44.1 Mild protein-calorie malnutrition; N39.0 Urinary tract infection, site not specified; G82.20 Paraplegia, unspecified; Z68.1 Body mass index [BMI] 19.9 or less, adult; L89.312 Pressure ulcer of right buttock, stage 2; L89.322 Pressure ulcer of left buttock, stage 2; F32.9 Major depressive disorder, single episode, unspecified; G89.4 Chronic pain syndrome; E87.6 Hypokalemia; J43.9 Emphysema, unspecified; D50.9 Iron deficiency anemia, unspecified; K56.41 Fecal impaction; I25.10 Atherosclerotic heart disease of native coronary artery without angina pectoris; M81.0 Age-related osteoporosis without current pathological fracture; N31.9 Neuromuscular dysfunction of bladder, unspecified; F41.9 Anxiety disorder, unspecified; Z90.49 Acquired absence of other specified parts of digestive tract; Z79.899 Other long term (current) drug therapy; Z59.0 Homelessness; Z87.81 Personal history of (healed) traumatic fracture
CPT/HCPCS: 36415; 71045; 80048; 80053; 80307; 81000-TC; 82140-TC; 85007; 85025; 85027; 94640; 94760; 96361; 96374; 99285; G0480; G0481; G0482; J1885; J2543; J7030

== ENCOUNTER 2019-07-11 21:11 | Inpatient (IN) | payer OTHER, MEDICAID ==
[~2019-07-11] VITALS: Ht 170.2 cm; Wt 55.3 kg
[~2019-07-11 21:11] MED LIST changes: -ACET325T53 PO; -BUSP5TAB3 PO; -Multivitamins Tab PO; -TRAZ-250 PO
[2019-07-11 21:27] VITALS: BP_SYST 127
--- NOTE | 2019-07-11 21:27 | NUR ---
Patient to ER bed 06 to gown for evaluation. Side rails up. Report given to ZACHARY ERNANDEZ
--- NOTE | 2019-07-11 21:30 | NUR ---
53 y/o M presents to ED after leaving AMA yesterday. Pt states he came in orignally d/t of pressure ulcer in his buttocks. Pt was admitted on the 04 of July, but left becuase he was not allowed to smoke. Pt is a Paraplegic, but denies any medical Hx. 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 Pt states his last time using was last week. Will continue to monitor.
--- NOTE | 2019-07-11 21:38 | NUR ---
Dr. Gonzalez at bedside examining Pt.
[2019-07-11 22:16] LABS: CALCIUM 8.2 mg/dL (8.4-11.0); CREATININE 0.41 mg/dL (0.55-1.30); POTASSIUM 3.7 mmol/L (3.5-5.1)
[2019-07-11 22:17] LABS: BASOPHILS # (AUTO) 0.1 K/uL (0.0-0.2); BASOPHILS % (AUTO) 0.9 % (0.0-2.0); EOSINOPHILS # (AUTO) 0.1 K/uL (0.0-0.4); HEMATOCRIT 37.3 % (36-54); HEMOGLOBIN 12.2 g/dL (14.0-18.0); MEAN CORPUSCULAR HEMOGLOBIN 22 pg (27-31); MEAN CORPUSCULAR HGB CONC 33 % (32-36); MEAN CORPUSCULAR VOLUME 66 fL (79.0-98.0); MONOCYTES # (AUTO) 0.9 K/uL (0.0-1.0); MONOCYTES % (AUTO) 6.3 % (1.7-9.3); NEUTROPHILS # (AUTO) 9.2 K/uL (1.8-7.7); NEUTROPHILS % (AUTO) 63.8 % (40.0-70.0); PLATELET COUNT (AUTO) 595 K/uL (130-430); RED BLOOD CELL COUNT(AUTO) 5.62 MIL/uL (4.2-6.2); RED CELL DISTRIBUTION WIDTH 15.8 % (9.0-15.0); WHITE BLOOD COUNT (AUTO) 14.4 K/uL (4.8-10.8)
[2019-07-11 22:47] LABS: BILIRUBIN,URINE NEGATIVE (NEGATIVE); BLOOD, URINE NEGATIVE (NEGATIVE); COLOR,URINE YELLOW (YELLOW); GLUCOSE,URINE NEGATIVE (NEGATIVE); KETONES,URINE NEGATIVE (NEGATIVE); LEUKOCYTE ESTERASE ,URINE NEGATIVE (NEGATIVE); NITRITE, URINE POSITIVE (NEGATIVE); PROTEIN URINE NEGATIVE (NEGATIVE); UROBILINOGEN,URINE 0.2 (0.2-1.0)
[2019-07-11] MEDS ORDERED: NACL 0.9% 1,000 ML IV ONE (23:00)
[2019-07-11] MEDS ORDERED: MORPHINE 4 MG/ML INJ. SYRINGE IVP ONE (23:00)
[2019-07-11] MEDS ORDERED: PIPERACILLIN/TAZO 3.375 GM in NS 50 ML IV ONE (23:00)
[2019-07-11 23:14] LABS: TOTAL BILIRUBIN 0.8 mg/dL (0.0-1.0)
[2019-07-11 23:15] LABS: ALBUMIN 3.4 g/dL (3.4-4.8)
[2019-07-11 23:17] LABS: CLARITY/URINE SLIGHTLY HAZY (CLEAR)
--- NOTE | 2019-07-11 23:21 | NUR ---
Patient will be admitted to care of Dr. brady. Admitted to Telemetry unit. AWaiting bed assingment. Belongings list completed. Complete and up to date summary report printed. SBAR report to be given at bedside with opportunity for questions.
[2019-07-11] MEDS ORDERED: PIPERACILLIN/TAZOBACTAM 3.375 GM/VIAL (ZOSYN) IV ONE (23:22)
[2019-07-11 23:36] LABS: BACTERIA,URINE MODERATE /HPF (None Seen); RBC,URINE 0-3 /HPF (0-3)
--- NOTE | 2019-07-11 23:40 | NUR ---
Admission Note Received patient from ER with diagnosis of Pressure sores. Initial Plan of Care discussed-patient verbalized understanding. Oriented to room, call light, pain management and safety.
--- NOTE | 2019-07-11 23:45 | NUR ---
INITIAL NOTES Patient is resting, no signs of distress observed, room air. Patient states he does not want the psychopaedic nurse, and patient verbalizes understanding of the use and still refuses. IV site patent, dressings c/d/i, IVF running. Call light within reach, bed alarm on, bed at lowest position. Wheelchair at bedside.
[2019-07-11 23:50] VITALS: BP_SYST 117
[2019-07-12 00:20] VITALS: BP_SYST 117
[2019-07-12] MEDS ORDERED: VANCOMYCIN HCL 1000 MG/VIAL IV ONE (01:16)
--- NOTE | 2019-07-12 02:11 | NUR ---
Warm blankets provided, no signs of distress observed. All needs met at this time. Will continue to monitor.
--- NOTE | 2019-07-12 04:08 | NUR ---
Patient is resting, no signs of distress observed. Call light within reach, will continue to monitor.
--- NOTE | 2019-07-12 07:06 | NUR ---
CLOSING NOTES Patient is resting, no signs of acute respiratory distress observed, IV site patent, dressings c/d/i. Call light within reach, bed alarm on, bed at lowest position. Patient requests tierney catheter. All needs met throughout shift. Will endorse care to oncoming shift.
[2019-07-12 08:00] VITALS: BP_SYST 122
--- NOTE | 2019-07-12 08:46 | NUR ---
Nutrition Update Vishal Scale 13 noted. Pt admitted for infected wound. Diet: 2 gm Na BMI: 19.1 kg/m2 RD to follow per nutrition care standards.
--- NOTE | 2019-07-12 10:28 | NUR ---
SS NOTES: LOCKSTITCH LINING SETTER was referred by CM to see patient for DCP and re-admit. LOCKSTITCH LINING SETTER met with patient at bedside. Pt is alert and oriented x4 and cooperative throughout the encounter. Pt left AMA yesterday and is re-admitted today. Pt stated he was feeling "overwhelmed" and "couldn't stand feeling like I was in group home" and "couldn't do anything" while confined. LOCKSTITCH LINING SETTER re-educated pt on the reason and importance for a SNF transfer; pt understood and stated he will stay and go to SNF this time. LOCKSTITCH LINING SETTER encouraged pt to call SS when feeling overwhelmed; pt agreed and thankful, SS phone number provided. Pt stated his goal to feel better and not in pain is to see his son and grandchildren who lives in [place]. Pt still has the resources given in his possession. LOCKSTITCH LINING SETTER encouraged pt to call PCP, Dr. Maher when discharged for f/u care. No further SS needs identified, but will remain available for emotional support.
--- NOTE | 2019-07-12 11:02 | NUR ---
CONSULTATION PAGED/CALLED Reason for Consultation: Decubitus Ulcer Person Who was Notified: exchange Consulting Physician: Dr. Johnson Deburr Technician Specialty: ID Ordering Physician: DR. GRIFFIN
--- NOTE | 2019-07-12 11:07 | NUR ---
CONSULTATION PAGED/CALLED Reason for Consultation: Decubitus ulcer Person Who was Notified: Susan Consulting Physician: Dr. Ayala Industrial Relations Officer Specialty: Surgeon Ordering Physician: Sr. Joe
[2019-07-12] MEDS ORDERED: METOCLOPRAMIDE HCL 10 MG/2 ML VIAL IVP PRN (11:15)
[2019-07-12] MEDS ORDERED: MORPHINE SULFATE 10 MG/ML VIAL IVP PRN (11:15)
[2019-07-12] MEDS ORDERED: ONDANSETRON HCL 4 MG/2 ML VIAL IVP PRN (11:15)
[2019-07-12] MEDS ORDERED: ACETAMINOPHEN 325 MG TABLET PO PRN (11:15)
[2019-07-12] MEDS: MORPHINE SULFATE 10 MG/ML VIAL IVP PRN ×3 (11:28→19:38)
[2019-07-12] MEDS ORDERED: PIPERACILLIN/TAZO 3.375/DEX-IS 50 ML IV SCH (12:00)
--- NOTE | 2019-07-12 12:00 | NUR ---
rounds abx zosyn was given after pain med was given. no sob noted. seen by dr brady and dr leahy at bedside.
[2019-07-12 12:15] VITALS: BP_SYST 97
[2019-07-12] MEDS ORDERED: VANCOMYCIN HCL 1,000 MG in NS 250 ML IV SCH ×3 (13:00)
[2019-07-12] MEDS: VANCOMYCIN HCL 750 MG in NS 250 ML IV SCH (13:08)
--- NOTE | 2019-07-12 14:12 | NUR ---
WOUND EVALUATION: Wound Consult received from Dr. Maher. Thank you, Dr. Maher, for the consult. Patient was awake, alert, oriented, and received in a Shell Bed with an IsoFlex MICHAEL mattress. Patient has Paraplegia, but is able to turn in bed. Vishal score is a 17. Past Medical History: Paraplegia, recurrent UTI's, COPD, Emphysema, Iron Deficiency Anemia, Acute Blood Loss Anemia, Mild Protein Nutrition, Constipation, Fecal Impaction, Atherosclerosis, Neurogenic Bladder, Hyponatremia, Anxiety, Depression, Thrombocytosis, Osteoporosis, Left Femur Fracture (ORIF on 11/07/18), Laparoscopic Cholecystectomy, ORIF Right Femur in 01/06, Chronic Pain Syndrome. Recent Labs: WBC 14.4, RBC 5.62, Hgb 12.2, Hct 37.3, Na 131, Cl 96, Alkaline Phosphatase 131. Microbiology: Blood Culture results x 2 in progress. Urine Culture results in progress. MRSA Screen results in progress. Intrinsic factors that delay wound healing: COPD, Emphysema, Iron Deficiency Anemia, Acute Blood Loss Anemia, Mild Protein Nutrition, Atherosclerosis. Extrinsic factors that delay wound healing: Decreased mobility. Educated patient to avoid sitting in chair/wheelchair. Also advised patient that if he chose to sit, he needed to do self pressure relief side to side q hour. Wound Assessment: 1. Left Buttock near Ischium/Kaleigh-Anal area: Unstageable pressure ulcer, present on admission. Wound bed has 90% yellow tissue, 10% light pink tissue. No odor, no drainage. Kaleigh-wound white, intact. Measures 2.5 cm x 2.0 cm x 0.2 cm. Recommend: Cleanse wound with normal saline. Apply moisture barrier cream to kaleigh-wound. Apply Venelex ointment to wound bed. Cover with foam dressing. Perform wound care daily, and as needed for dressing soiling or dislodgement. 2. Sacral-Coccygeal area: Chronic unstageable pressure ulcer, present on admission. Wound bed has 95% brown eschar, 5% yellow eschar. Eschar site feels soft, almost boggy. No odor, no drainage. Kaleigh-wound pink, intact. Dry, stable. Measures 1.7 cm x 0.6 cm. Recommend: Apply Betadine to Sacral-Coccygeal wound daily. Allow to air dry and cover with Sacral foam dressing. 3. Right Lateral Hip: Scar tissue from a healed surgical incision, present on admission. 4. Right Lateral Hip, inferior to site 3: Scar tissue from a healed surgical incision, present on admission. 5. Right Lateral Hip, inferior to site 1: Scar tissue from a healed surgical incision, present on admission. Recommend: No dressings needed. Continue to monitor sites every shift. 6. Left knee: Scar tissue from a healed surgical incision, present on admission. 7. Left knee, left lateral to wound 4: Scar tissue from a healed surgical incision, present on admission. 8. Left knee, inferior to wound 5: Scar tissue from a healed surgical incision, present on admission. Recommend: No dressings needed. Continue to monitor sites every shift. Also recommend: Encourage and assist patient as needed with repositioning side to side only every 2 hours with pillow support. Elevate, off-load and float bilateral heels with pillows. Offload pressure areas with pillows for pressure re-distribution. Perform skin care and monitor skin integrity Q shift. Use moisture barrier cream on moisture susceptible areas QID and PRN for soiling. Have patient perform self pressure relief side to side q hour while in chair/wheelchair. Initiate low air-loss therapy.
--- NOTE | 2019-07-12 15:30 | NUR ---
rounds seen by sudha wound nurse. no osb noted.
[2019-07-12] MEDS: FLUCONAZOLE 100 mg/ NS 50 ML IV SCH (15:43)
--- NOTE | 2019-07-12 16:00 | NUR ---
rounds pain med was given as requested. iv site on the l forearm, requested to be changed to another site. inserted by gerber on the r forearn. no infiltration and diflucan abx was infused..
[2019-07-12 16:27] VITALS: BP_SYST 122
--- NOTE | 2019-07-12 19:00 | NUR ---
closing notes tierney cath was inserted by patient with aseptic technique with supervision at bedside. no sob noted.
[2019-07-12] MEDS: CEFEPIME 1 GM in D5W 50 ML IV SCH (19:42)
--- NOTE | 2019-07-12 19:45 | NUR ---
PM ASSESSMENT PATIENT AWAKE AOX4, COMPLAINS ON 01/27 PAIN, GAVE MORPHINE, PATIENT REQUESTED TO IRRIGATED SHAHID HIMSELF, GAVE STERILE WATER AND 60ML SYRINGE, PATIENT STATES HE WANTS US TO CALL DR FOR ATIVAN AND NICOTINE PATCH, RESPIRATIONS EVEN AND UNLABORED ON ROOM AIR, PATIENT WHEELCHAIR BOUND, SAFETY MEASURES IN PLACE, CALL LIGHT WITHIN REACH, BED IN LOWEST POSITION, 2 SIDE RAILS UP.
[2019-07-12 19:56] VITALS: BP_SYST 134
--- NOTE | 2019-07-12 20:02 | NUR ---
PAGED I PAGED DR. GRIFFIN @ 2001 I SPOKE WITH RICKY EXCHANGE DR. GRIFFIN CALLED BACK @ 2013
--- NOTE | 2019-07-12 20:15 | NUR ---
CALLED DOCTOR SPOKE WITH DOCTOR GRIFFIN, RECEIVED NEW ORDER FOR ATIVAN AND NICOTINE PATCH
[2019-07-12] MEDS: LORazepam 2 MG/ML VIAL IVP PRN (20:42)
--- NOTE | 2019-07-12 21:32 | NUR ---
ROUNDS PATIENT IN BED EYES CLOSED, RESTING WITH NO SIGNS OF DISTRESS AT THIS TIME.
[2019-07-12 22:22] VITALS: BP_SYST 134
[2019-07-13] MEDS: VANCOMYCIN HCL 750 MG in NS 250 ML IV SCH ×2 (00:23→13:18)
[2019-07-13 00:24] VITALS: BP_SYST 135
[2019-07-13] MEDS: MORPHINE SULFATE 10 MG/ML VIAL IVP PRN ×6 (00:24→21:31)
--- NOTE | 2019-07-13 00:30 | NUR ---
ROUNDS PATIENT AWAKE, COMPLAINING OF GENERALIZED PAIN. MORPHINE GIVEN, WILL CONTINUE TO MONITOR. PATIENT TOLERATING IV ANTIBIOTICS. SAFETY MEASURES REMAIN IN PLACE.
--- NOTE | 2019-07-13 02:21 | NUR ---
ROUNDS Patient asleep, breathing is even and unlabored, safety measures in place, call light within reach, will monitor.
--- NOTE | 2019-07-13 04:30 | NUR ---
ROUNDS PATIENT IN BED WITH EYES CLOSED, NO DISTRESS NOTED AT THIS TIME, WILL CONTINUE TO MONITOR.
--- NOTE | 2019-07-13 06:31 | NUR ---
CLOSING NOTE PATIENT IN BED AWAKE, CALM, WATCHING TV. NEEDS ATTENDED, MORPHINE GIVEN, NO ADDITIONAL NEEDS AT THIS TIME
[2019-07-13 07:40] VITALS: BP_SYST 115
[2019-07-13 08:10] VITALS: BP_SYST 102
[2019-07-13] MEDS: CEFEPIME 1 GM in D5W 50 ML IV SCH ×2 (08:11→21:29)
[2019-07-13] MEDS: NICOTINE 21 MG/24 HR PATCH.TD24 TD SCH (08:11)
[2019-07-13] MEDS: LORazepam 2 MG/ML VIAL IVP PRN ×3 (08:11→21:30)
--- NOTE | 2019-07-13 08:30 | NUR ---
am rounds: Patient is oriented x4, anxious, ativan is given. Patient is paraplegic, able to turn to sides independently. Safety measures maintained. Call light within reach.
--- NOTE | 2019-07-13 11:13 | NUR ---
Dietitian Recommendations *Recommend: adding Ensure Enlive BID and Stepan BID. ONS and modular will provide additional 892 kcal and 45gm protein daily. Please see Nutritional Assessment for details. ANITA QUIJANO Addendum: 07/13/19 at [address] *Recommend MVI. ANITA QUIJANO
--- NOTE | 2019-07-13 11:25 | NUR ---
Rounds: Patient is resting, denies pain at this time. Encouraged patient to limit putting pressure on the sacrum and left buttock.
[2019-07-13 12:28] VITALS: BP_SYST 101
[2019-07-13] MEDS: FLUCONAZOLE 100 mg/ NS 50 ML IV SCH (13:17)
[2019-07-13] MEDS: BALSAM PERU/CASTOR OIL 60 GM OINT...G. TP SCH (13:24)
[2019-07-13 16:16] VITALS: BP_SYST 102
--- NOTE | 2019-07-13 18:32 | NUR ---
End of shift: Needs attended. No change in assessment.
--- NOTE | 2019-07-13 19:37 | NUR ---
OPENING NOTE Received report from mira RN, patient resting in bed watching TV, A/Ox4, no signs of acute distress, even and unlabored breathing on room air, IV to right FA saline locked, patent/benign. Patient complains of mild pain to his neck and back but verbalizes he can wait fort his next dose of morphine, Butt catheter draining to gravity, personal wheelchair at bedside. Safety and fall precautions in place, bed alarm on, bed locked and in lowest position, two side rails up, call light with patient, will continue to monitor.
[2019-07-13 20:00] VITALS: BP_SYST 120
--- NOTE | 2019-07-13 21:31 | NUR ---
Pain/Anxiety Patient complains of pain 9/10 to his neck and back. Morphine indicated for severe pain. Patient also complains of increased anxiety and requests Ativan medication, Ativan indicated for anxiety. Educated patient on medication uses and potential side effects, patient able to verbalize understanding, administered medication per MD order, patient tolerated well, no signs of acute distress. Safety and fall precautions in place, call light with patient, will continue to monitor.
--- NOTE | 2019-07-13 22:01 | NUR ---
RN Rounds Patient's linens soiled with irrigation water form Butt cath. Provided patient with new linens and gown, patient is clean and dry, patient tolerated well. Safety and fall precautions in place, bed alarm on, bed locked and in lowest position, two side rails up, call light with patient, will continue to monitor.
[2019-07-14 01:01] VITALS: BP_SYST 122
[2019-07-14] MEDS: VANCOMYCIN HCL 750 MG in NS 250 ML IV SCH ×2 (01:07→12:35)
--- NOTE | 2019-07-14 01:54 | NUR ---
RN Rounds Patient resting in bed, eyes closed, no signs of acute distress, tolerating room air, hung scheduled antibiotic, IV to right FA, patent/benign, Butt catheter draining to gravity, personal wheelchair at bedside. Safety and fall precautions in place, call light with patient, will continue to monitor.
--- NOTE | 2019-07-14 03:50 | NUR ---
RN Rounds Patient resting in bed, eyes closed, no signs of acute distress, tolerating room air, IV to right FA, patent/benign, Butt catheter draining to gravity. Safety and fall precautions in place, call light with patient, will continue to monitor.
--- NOTE | 2019-07-14 04:43 | NUR ---
RN Rounds Patient resting in bed, eyes closed, tolerating room air, IV to right FA, patent/benign, Butt catheter draining to gravity, no signs of acute distress. Safety and fall precautions in place, call light with patient, will continue to monitor.
[2019-07-14] MEDS: MORPHINE SULFATE 10 MG/ML VIAL IVP PRN ×5 (06:03→23:07)
--- NOTE | 2019-07-14 06:03 | NUR ---
Pain Patient complains of pain 8/10 to his neck and back. Morphine indicated for severe pain. Educated patient on medication uses and potential side effects, patient able to verbalize understanding, administered medication per MD order, patient tolerated well, no signs of acute distress. Safety and fall precautions in place, call light with patient, will continue to monitor.
[2019-07-14] MEDS: LORazepam 2 MG/ML VIAL IVP PRN ×3 (06:17→18:18)
--- NOTE | 2019-07-14 06:57 | NUR ---
CLOSING NOTE/PRN MEDICATION Patient resting in bed watching TV, patient also complains of increased anxiety and requests Ativan medication, Ativan indicated for anxiety. Educated patient on medication uses and potential side effects, patient able to verbalize understanding, administered medication per MD order, patient tolerated well, no signs of acute distress, tolerating room air, IV to right FA saline locked, patent/benign, Butt catheter draining to gravity, personal wheelchair at bedside. Safety and fall precautions in place, bed alarm on, bed locked and in lowest position, two side rails up, call light with patient, will endorse care to dayshift RN.
[2019-07-14 07:40] VITALS: BP_SYST 115
--- NOTE | 2019-07-14 07:40 | NUR ---
INITIAL ROUNDS Received pt AAOx4, no s/s resp distress, no c/o pain or discomfort. Plan of care for the day reviewed with pt-pt verbalized his understanding. Butt draining to gravity at ordered rate with yellow urine. Noted dressings to pt's buttocks and inner thigh clean, dry and intact. Pain management, skin and safety discussed-teach back done. Call light within reach.
[2019-07-14] MEDS: CEFEPIME 1 GM in D5W 50 ML IV SCH ×2 (09:17→21:18)
[2019-07-14] MEDS: NICOTINE 21 MG/24 HR PATCH.TD24 TD SCH (09:17)
[2019-07-14 12:25] VITALS: BP_SYST 109
[2019-07-14 12:30] LABS: BASOPHILS # (AUTO) 0.1 K/uL (0.0-0.2); EOSINOPHILS # (AUTO) 0.1 K/uL (0.0-0.4); HEMOGLOBIN 11.2 g/dL (14.0-18.0)
--- NOTE | 2019-07-14 12:35 | NUR ---
ANXIOUS Pt stated he is feeling very anxious, pt given Ativan as ordered. Pt encouraged to do slow, deep breaths to try to relax. Light turned down low and door closed to promote rest. Call light within reach.
[2019-07-14] MEDS: FLUCONAZOLE 100 mg/ NS 50 ML IV SCH (12:36)
[2019-07-14 12:38] LABS: BASOPHILS % (AUTO) 0.5 % (0.0-2.0); EOSINOPHILS % (AUTO) 1.1 % (0.0-4.0); HEMATOCRIT 34.8 % (36-54); LYMPHOCYTES % (AUTO) 22.9 % (20.5-51.5); MEAN CORPUSCULAR HEMOGLOBIN 22 pg (27-31); MEAN CORPUSCULAR HGB CONC 32 % (32-36); MEAN CORPUSCULAR VOLUME 67 fL (79.0-98.0); MONOCYTES % (AUTO) 7.9 % (1.7-9.3); NEUTROPHILS # (AUTO) 8.9 K/uL (1.8-7.7); NEUTROPHILS % (AUTO) 67.6 % (40.0-70.0); PLATELET COUNT (AUTO) 578 K/uL (130-430); WHITE BLOOD COUNT (AUTO) 13.2 K/uL (4.8-10.8)
[2019-07-14 13:06] LABS: ALBUMIN 3.2 g/dL (3.4-4.8); CALCIUM 8.6 mg/dL (8.4-11.0); CREATININE 0.37 mg/dL (0.55-1.30); TOTAL BILIRUBIN 0.5 mg/dL (0.0-1.0)
[2019-07-14 13:17] LABS: POTASSIUM 4.2 mmol/L (3.5-5.1)
--- NOTE | 2019-07-14 16:20 | NUR ---
WOUND CARE *Left Kaleigh-Anal area wound cleansed with normal saline, Venelex placed onto wound bed, moisture barrier cream applied to periwound area, covered with a foam dressing. Wound bed is 90% pink tissue, 10% yellow tissue, wound measures 2.5 cm x 2.0 cm x 0.2 cm. Pt tolerated well.
[2019-07-14] MEDS: BALSAM PERU/CASTOR OIL 60 GM OINT...G. TP SCH (16:21)
[2019-07-14 16:55] VITALS: BP_SYST 137
--- NOTE | 2019-07-14 18:20 | NUR ---
ANXIETY Pt c/o feeling very anxious, "I wish I could go outside and smoke". Pt does have a Nicotine patch on. Pt given Ativan as ordered, light turned down low and door closed to promote rest. Call light within reach.
--- NOTE | 2019-07-14 19:30 | NUR ---
CLOSING NOTE Pt resting quietly in bed with no s/s resp distress, no further c/o pain or discomfort, no further c/o anxiety. Needs met, all precautions remain in place. Call light within reach.
--- NOTE | 2019-07-14 19:30 | NUR ---
Initial note: Received report from dayscoralft RN. Patient is awake in bed. No acute distress. Even and unlabored respirations on room air. IV site present to right forearm. Call light with patient. Safety, fall precautions in place. Bed alarm refused despite education. Will continue with plan of care.
[2019-07-14 20:00] VITALS: BP_SYST 121
--- NOTE | 2019-07-14 21:29 | NUR ---
IV RE-INSERTION: Observed IV site leaking upon flushing with NS. Restarted on left upper arm, 20 gauge. Successful after 1 attempt. Initiated infusion of scheduled IV antibiotics. Will observe for any signs of infiltration.
--- NOTE | 2019-07-14 23:08 | NUR ---
Pain: Patient complaining of severe pain to sacral and left gluteal fold wounds. Morphine 4 MG administered as indicated intravenously per MD order. No infiltration to IV site. Call light is with patient. Safety, fall precautions in place. Will continue with plan of care.
[2019-07-15 00:04] VITALS: BP_SYST 112
[2019-07-15] MEDS: LORazepam 2 MG/ML VIAL IVP PRN ×4 (00:13→20:43)
[2019-07-15] MEDS: VANCOMYCIN HCL 1,000 MG in NS 250 ML IV SCH ×3 (00:13→23:32)
--- NOTE | 2019-07-15 00:16 | NUR ---
Anxiety: Patient is complaining of anxiety. Ativan 1 MG administered as indicated intravenously per MD order. No infiltration to IV site. Call light with patient. Safety, fall precautions in place. Will continue with plan of care.
--- NOTE | 2019-07-15 03:19 | NUR ---
Rounds: Patient is asleep. No acute distress. Tolerating room air, even and unlabored respirations. IV site patent and intact. Call light is with patient. Will continue monitoring.
--- NOTE | 2019-07-15 05:13 | NUR ---
Rounds: Patient is asleep. No acute distress. Breathing is even and unlabored on room air. IV site patent and intact. Call light is with patient. Will continue monitoring.
[2019-07-15] MEDS: MORPHINE SULFATE 10 MG/ML VIAL IVP PRN ×6 (05:38→22:47)
--- NOTE | 2019-07-15 06:15 | NUR ---
IV RE-INSERTION: Found IV site completely dislodged. Patient stated the IV catheter may have come out while he was asleep. Site not actively bleeding. Restarted on right forearm, 24 gauge. Will observe for any signs of infiltration.
--- NOTE | 2019-07-15 06:22 | NUR ---
Pain: Patient complaining of severe pain to neck and upper back. Morphine 4 MG administered as indicated intravenously per MD order. No infiltration to IV site. Call light is with patient. Safety, fall precautions in place. Will continue with plan of care.
--- NOTE | 2019-07-15 06:45 | NUR ---
Wound care: Performed wound care and dressing change for sacral wound per MD order and vehicle care specialist recommendations. Patient tolerated well. Will continue monitoring.
--- NOTE | 2019-07-15 06:54 | NUR ---
Closing note: Patient is resting in bed comfortably. Tolerating room air. Butt catheter draining well to gravity. All needs met. Safety, fall precautions observed. Will endorse care to dayshift RN.
--- NOTE | 2019-07-15 07:30 | NUR ---
OPENING NOTES: RECEIVED PATIENT FROM PLATING STRIPPER NURSE. PATIENT IS AWAKE AND ALERT x4 LAYING DOWN IN BED. PATIENT STATES HE IS HAVING PAIN 7/10. PATIENT INFORMED THAT HE JUST RECEIVED PAIN MEDICATION AND ONCE IT BECOMES AVAILABLE AGAIN I WILL GIVE IT TO HIM. PATIENT TOLERATING OXYGEN ON ROOM AIR WITH NO SIGNS OF DISTRESS OR SHORTNESS OF BREATH NOTED. IV SITE IS PATENT WITH NO SIGNS OF INFILTRATION NOTED. SHAHID CATHETER INTACT AND DRAINING BY GRAVITY. PATIENT IN STABLE CONDITION. SAFETY, FALL, AND ASPIRATION PRECAUTIONS ARE IN PLACE. BED LOCKED IN LOWEST POSITION WITH CALL LIGHT IN REACH. WILL CONTINUE TO MONITOR PATIENT FOR ANY CHANGES.
[2019-07-15 08:05] VITALS: BP_SYST 92
[2019-07-15] MEDS: CEFEPIME 1 GM in D5W 50 ML IV SCH ×2 (08:22→20:44)
[2019-07-15] MEDS: NICOTINE 21 MG/24 HR PATCH.TD24 TD SCH (08:22)
[2019-07-15] MEDS: BALSAM PERU/CASTOR OIL 60 GM OINT...G. TP SCH (10:42)
--- NOTE | 2019-07-15 10:51 | NUR ---
RN ROUNDS: PATIENT IS AWAKE AND ALERT x4 LAYING DOWN IN BED. PATIENT STATES HE WAS IN PAIN 9/10. PRN MORPHINE GIVEN. IV SITE IS PATENT WITH NO SIGNS OF INFILTRATION NOTED. SHAHID CATHETER INTACT AND DRAINING BY GRAVITY. PATIENT IN STABLE CONDITION. WILL CONTINUE TO MONITOR PATIENT FOR ANY CHANGES.
--- NOTE | 2019-07-15 12:20 | NUR ---
RN ROUNDS: PATIENT IS ASLEEP LAYING DOWN IN BED. NO SIGNS OF DISTRESS OR SHORTNESS OF BREATH NOTED. IV SITE IS PATENT WITH NO SIGNS OF INFILTRATION NOTED. PATIENT IN STABLE CONDITION. WILL CONTINUE TO MONITOR PATIENT FOR ANY CHANGES.
[2019-07-15 12:41] VITALS: BP_SYST 111
[2019-07-15] MEDS: FLUCONAZOLE 100 mg/ NS 50 ML IV SCH (13:15)
--- NOTE | 2019-07-15 14:44 | NUR ---
RN ROUNDS: PATIENT IS AWAKE AND ALERT x4 LAYING DOWN IN BED. PATIENT STATES HE HAS PAIN 10/10. PRN PAIN MEDICATION AND ATIVAN GIVEN TO PATIENT. PATIENT STATES HE IS FEELING BETTER NOW. NO SIGNS OF DISTRESS OR SHORTNESS OF BREATH NOTED. PATIENT IN STABLE CONDITION. WILL CONTINUE TO MONITOR PATIENT FOR ANY CHANGES.
[2019-07-15 16:14] VITALS: BP_SYST 97
--- NOTE | 2019-07-15 16:15 | NUR ---
RN ROUNDS: PATIENT IS ASLEEP LAYING DOWN IN BED. NO SIGNS OF DISTRESS OR SHORTNESS OF BREATH NOTED. PATIENT IN STABLE CONDITION. WILL CONTINUE TO MONITOR PATIENT FOR ANY CHANGES.
--- NOTE | 2019-07-15 18:59 | NUR ---
CLOSING NOTES: PATIENT IS AWAKE AND ALERT x4 LAYING DOWN IN BED. PATIENT STATES HE IS HAVING PAIN 10/10. PRN PAIN MEDICATION GIVEN. PATIENT TOLERATING OXYGEN ON ROOM AIR WITH NO SIGNS OF DISTRESS OR SHORTNESS OF BREATH NOTED. IV SITE IS PATENT WITH NO SIGNS OF INFILTRATION NOTED. SHAHID CATHETER INTACT AND DRAINING BY GRAVITY. PATIENT IN STABLE CONDITION. SAFETY, FALL, AND ASPIRATION PRECAUTIONS REMAINED IN PLACE THROUGHOUT THE SHIFT. BED LOCKED IN LOWEST POSITION WITH CALL LIGHT IN REACH. WILL ENDORSE PATIENT CARE TO ONCOMING APPLICATIONS PROGRAMMER NURSE.
--- NOTE | 2019-07-15 19:55 | NUR ---
OPENING NOTES Received report from ZACHARY Wisdom. Patient is AAOx4, sitting in wheelchair, breathing evenly and nonlabored on room air. Patient has an IV on the right forearm 24g SL, patent and benign at this time. Patient has a Butt catheter, secured and draining by gravity. Educated patient on plan of care, fall/safety precautions, patient stated understanding. Bed is at lowest position, locked, will continue to monitor.
[2019-07-15 20:10] VITALS: BP_SYST 102
[2019-07-16 00:30] VITALS: BP_SYST 111
[2019-07-16] MEDS: MORPHINE SULFATE 10 MG/ML VIAL IVP PRN ×6 (03:00→23:09)
[2019-07-16] MEDS: LORazepam 2 MG/ML VIAL IVP PRN ×3 (04:16→17:50)
--- NOTE | 2019-07-16 06:45 | NUR ---
CLOSING NOTES patient resting in bed, eyes closed, breathing evenly and nonlabored on room air. Needs met throughout the shift. Fall/safety precautions, will endorse care to morning shift RN. Addendum: 07/16/19 at 0736 by Toño Johnson RN wound care was done during the shift, patient tolerated it well.
[2019-07-16] MEDS: CEFEPIME 1 GM in D5W 50 ML IV SCH ×2 (09:00→21:31)
[2019-07-16] MEDS: BALSAM PERU/CASTOR OIL 60 GM OINT...G. TP SCH (09:00)
[2019-07-16] MEDS: NICOTINE 21 MG/24 HR PATCH.TD24 TD SCH (11:42)
[2019-07-16 12:00] VITALS: BP_SYST 115
[2019-07-16] MEDS: VANCOMYCIN HCL 1,000 MG in NS 250 ML IV SCH ×2 (12:00→23:08)
--- NOTE | 2019-07-16 12:49 | NUR ---
[facility] EVAL ORDER: Informed dr. Joe, the pt is on tele level x1 day and does not meet [facility] criteria. Cm requested if pt can be dc to snf instead. The md stated "no" at this time. >> LVM to [facility] # [phone]. Addendum: 07/16/19 at 1259 by Mary Clemente RN >> I spoke with pt at bedside re dc to [facility]/snf: the pt agreed for CM to find the any accepting snf . He aware that d/t his homelessness that is difficult to get an accepting one. The pt stated after treatments at snf or [facility] he will be going to his van, parking in [facility] parking lot.
[2019-07-16] MEDS: FLUCONAZOLE 100 mg/ NS 50 ML IV SCH (13:00)
--- NOTE | 2019-07-16 15:27 | NUR ---
Patient refused IV medications and is requesting pain medication prior to medication time. Patient refused tele monitoring as well. Patient is currently resting.
[2019-07-16 16:10] VITALS: BP_SYST 114
--- NOTE | 2019-07-16 17:12 | NUR ---
Nutrition F/U RD reviewed pt's current EMR record including diet Hx, physician notes, nursing notes, pertinent labs/meds/procedures, care trends, and care activity. Admission Dx: Infected wound PMH: paraplegia, acute HTN per physician notes; surgical Consult notes indicate continuing w/ non-surgical wound care management per EMR. Current Diet Order/Nutrition Support: regular w/ Ensure Enlive BID, Stepan BID x2 days Subjective Info: RD called pt's room 2x -- no response. Per EMR, appetite seems to have declined -- PO intake average of 42% x3 meals. Last BM x2 07/14/19. ONS and wound healing modular continues appropriate. Skin Integrity Comment: Vishal scale: 16, Per bookkeeping assistant notes 07/12/19: 1. Left Buttock near Ischium/[place]-Anal area: Unstageable pressure ulcer, present on admission. 2. Sacral-Coccygeal area: Chronic unstageable pressure ulcer, present on admission. 3. Right Lateral Hip: Scar tissue from a healed surgical incision, present on admission. 4. Right Lateral Hip, inferior to site 3: Scar tissue from a healed surgical incision, present on admission. 5. Right Lateral Hip, inferior to site 1: Scar tissue from a healed surgical incision, present on admission. 6. Left knee: Scar tissue from a healed surgical incision, present on admission. 7. Left knee, left lateral to wound 4: Scar tissue from a healed surgical incision, present on admission. 8. Left knee, inferior to wound 5: Scar tissue from a healed surgical incision, present on admission. Current % PO Poor Estimated Energy Expenditure (kcals/day) 7110-5205 kcal/day (30-35 kcal/kg IBW for wound healing) Estimated Protein Required (g/day) 67-100gm/day (1-1.5 gm/kg IBW for wound healing) Estimated Fluid Required (l/day) 2L/day (30ml/kg IBW for maintenance) Problem/Etiology/Signs/Symptoms Increased nutritional needs r/t metabolic demands AEB estimated calories and protein for wound healing and presence of pressure ulcers. *ongoing Expected Outcomes/Goals Monitor appetite and PO intake w/ goal of pt meeting at least 75% of estimated nutritional needs, labs trending WNL, normal GI function, skin integrity/wt maintenance. Dietitian Recommendations * Recommend continuing regular diet w/ Ensure Enlive BID, Stepan BID (additional 892 kcal/day, 45 gm protein/day from supplements) * Encourage increase PO intakes Follow Up Moderate Risk: F/U in 3-5 days
--- NOTE | 2019-07-16 17:16 | NUR ---
Dietitian Recommendations * Recommend continuing regular diet w/ Ensure Enlive BID, Stepan BID (additional 892 kcal/day, 45 gm protein/day from supplements) * Encourage increase PO intakes LP, RD Please refer to Nutrition F/U for details.
--- NOTE | 2019-07-16 19:10 | NUR ---
OPENING NOTES Patient is resting, sitting up, complains of pain. IV site patent, dressings c/d/i. Explained to patient the use of the monitor car operator and patient refuses to put it on. Will retry education at a later time. Call light within reach, bed alarm on, bed at lowest position. Patient states that patient has not received pain medications at all all shift. Explained to patient that pain medication can only be given every four hours. Will continue to monitor.
[2019-07-16 20:00] VITALS: BP_SYST 115
--- NOTE | 2019-07-16 22:05 | NUR ---
Patient is resting, no signs of acute respiratory distress observed. IV site patent, [place] education attempted, educated that [facility] will not accept without 3 days of telemetry monitoring. Patient states that he has not problem with the heart and says that it is uncomfortable and patient says that he will refuse. Will continue to monitor.
--- NOTE | 2019-07-17 00:06 | NUR ---
Patient is resting, watching television. No signs of distress observed. Will continue to monitor.
[2019-07-17] MEDS: LORazepam 2 MG/ML VIAL IVP PRN ×3 (00:16→18:32)
[2019-07-17] MEDS ORDERED: HYDROmorphone 1 MG INJ. 1 MG/ML AMPUL IVP PRN (00:45)
[2019-07-17 01:19] VITALS: BP_SYST 121
--- NOTE | 2019-07-17 02:21 | NUR ---
Patient is resting, no signs of distress observed. Patient still refuses die stamping press operator, jokes that he would just sign AMA in a few days. Patient verbalizes understanding for use of die stamping press operator, but refuses. Will continue to monitor.
--- NOTE | 2019-07-17 04:11 | NUR ---
Patient is asleep, eyes closed. No signs of distress observed. Will continue to monitor.
[2019-07-17] MEDS: MORPHINE SULFATE 10 MG/ML VIAL IVP PRN (06:22)
--- NOTE | 2019-07-17 07:01 | NUR ---
CLOSING NOTES Patient is resting, no signs of distress observed. Patient continues to refuse earth sciences professor. IV site patent, dressings c/d/i. Call light within reach, bed at lowest position, bed alarm on, all needs met throughout shift. Will endorse care to oncoming shift.
--- NOTE | 2019-07-17 08:00 | NUR ---
initial notes rec patient awake alert seen by dr brady. resp easy and unlabored. no sob noted. bed to the lowest position and side rails up and locked. denies pain. call light within reached.
[2019-07-17 08:41] VITALS: BP_SYST 113
[2019-07-17] MEDS ORDERED: INDOMETHACIN 25 MG CAPSULE(INDOCIN) PO SCH (09:00)
[2019-07-17] MEDS: CEFEPIME 1 GM in D5W 50 ML IV SCH ×2 (09:25→20:41)
[2019-07-17] MEDS: NICOTINE 21 MG/24 HR PATCH.TD24 TD SCH (09:26)
[2019-07-17] MEDS: BALSAM PERU/CASTOR OIL 60 GM OINT...G. TP SCH (09:29)
[2019-07-17] MEDS: HYDROmorphone 2 MG TAB PO PRN ×3 (10:11→20:41)
--- NOTE | 2019-07-17 10:30 | NUR ---
rounds due meds were given and huber well. sleeps at intervals. no sob noted.
--- NOTE | 2019-07-17 12:00 | NUR ---
rounds eating lunch at this time. denies pain. resting comfortably. call light withn reached.
[2019-07-17 12:15] VITALS: BP_SYST 103
[2019-07-17] MEDS: VANCOMYCIN HCL 1,000 MG in NS 250 ML IV SCH (12:38)
--- NOTE | 2019-07-17 14:00 | NUR ---
rounds asleep when rounds made. call light withn reached.
--- NOTE | 2019-07-17 16:00 | NUR ---
rounds iv restarted by brook mejia on the l forearm.
[2019-07-17 16:15] VITALS: BP_SYST 112
[2019-07-17] MEDS: FLUCONAZOLE 100 mg/ NS 50 ML IV SCH (17:05)
--- NOTE | 2019-07-17 19:00 | NUR ---
closing notes medicated with ativan as requested. denies pain at this time. resting comfortably. bed to the lowest position and side rails up and locked.
--- NOTE | 2019-07-17 19:10 | NUR ---
OPENING NOTES Patient is resting, sitting up, complains of pain. IV site patent, dressings c/d/i. Patient refuses hall monitor after stating he has understanding of the use and reason he needs the "heart monitor". Will retry education at a later time. Call light within reach, bed alarm on, bed at lowest position. Patient states he is anxious right now. Will continue to monitor.
[2019-07-17 22:47] VITALS: BP_SYST 102
--- NOTE | 2019-07-17 23:11 | NUR ---
Patient is resting, no signs of distress observed. Call light within reach, safety precautions in place.
--- NOTE | 2019-07-18 01:11 | NUR ---
Patient is resting, self turning. IV site patent, dressings c/d/i. Will continue to monitor.
[2019-07-18] MEDS: VANCOMYCIN HCL 1,000 MG in NS 250 ML IV SCH (01:49)
--- NOTE | 2019-07-18 03:26 | NUR ---
Patient is resting, no signs of distress or anxiety noted. Will continue to monitor.
[2019-07-18] MEDS: LORazepam 2 MG/ML VIAL IVP PRN ×2 (04:00→09:48)
--- NOTE | 2019-07-18 06:12 | NUR ---
CLOSING NOTES Patient is resting, no signs of distress observed. Patient continues to refuse athletic monitor. IV site patent, dressings c/d/i. Call light within reach, bed at lowest position, bed alarm on, all needs met throughout shift. Will endorse care to oncoming shift.
[2019-07-18 07:35] VITALS: BP_SYST 124
--- NOTE | 2019-07-18 07:35 | NUR ---
INITIAL ROUNDS Received pt AAOx4, no s/s resp distress, c/o pain 10/10 to mid and upper back-will check on pain medication. Pt continues to refuse the monitoring engineer-states "there is nothing wrong with my heart", pt educated on the purpose for the heart monitor, pt still refused. Plan of care for the day reviewed with pt-pt verbalized his understanding. Pain management, wound care, skin and safety discussed-teach back done. Side rails up x3, room near nursing station, bed alarm on for safety. Call light within reach.
[2019-07-18] MEDS: CEFEPIME 1 GM in D5W 50 ML IV SCH (08:15)
[2019-07-18] MEDS: NICOTINE 21 MG/24 HR PATCH.TD24 TD SCH (08:15)
[2019-07-18] MEDS: HYDROmorphone 2 MG TAB PO PRN (08:16)
--- NOTE | 2019-07-18 11:00 | NUR ---
AMA: Patient does not wish to proceed with medical care recommended by Dr. Maher. Patient given information related to possible complications, up to and including , which could occur as a result of leaving hospital at this time. Patient verbalizes his understanding of risks involved leaving against medical advice. Patient has signed AMA form. Patient's IV removed with no bleeding, patient's tierney removed. Patient left floor via his own wheelchair in no distress-patient stated "it's ridiculous that this hospital doesn't let me smoke!" patient escorted out by security, patient given his cigarettes and sole assessor back.
--- NOTE | 2019-07-18 14:30 | NUR ---
Discharge Planning: DCP spoke to [facility] at [facility] has not been on telemetry. Per conversation with CM, patient was just placed on telemetry 07/17/2019. DCP will faxed clinicals on Thursday that is the third day for patient
== END 2019-07-18 11:00 | disposition left against medical advice (07) | DRG 593 ==
LOC: SED 21:11 → STU 23:07 → SMU 07-12 21:49 → STU 07-16 13:00
PROVIDERS: ADMIT Internal Medicine Hospice and Palliative Medicine; ATTEND Internal Medicine Hospice and Palliative Medicine
DX: L89.159 Pressure ulcer of sacral region, unspecified stage (principal); N39.0 Urinary tract infection, site not specified; L03.312 Cellulitis of back [any part except buttock and flank]; G82.20 Paraplegia, unspecified; F11.20 Opioid dependence, uncomplicated; L89.329 Pressure ulcer of left buttock, unspecified stage; I10 Essential (primary) hypertension; N31.9 Neuromuscular dysfunction of bladder, unspecified; Z53.29 Procedure and treatment not carried out because of patient's decision for other reasons; G89.29 Other chronic pain; Z99.3 Dependence on wheelchair; Z87.440 Personal history of urinary (tract) infections; Z79.899 Other long term (current) drug therapy
CPT/HCPCS: 36415; 80053; 80202-TC; 81000-TC; 83605; 85025; 85651-TC; 87040-TC; 87081; 87086; 87186-TC; 96365; 96375; 99285; G0378; J0692; J1450; J2060; J2270; J2543; J3370; J7030; J7050; J7060

== ENCOUNTER 2019-08-28 19:29 | Emergency (ER) | payer OTHER, MEDICAID ==
[~2019-08-28] VITALS: Ht 154.9 cm; Wt 52.2 kg
[2019-08-28 19:35] VITALS: BP_SYST 124
== END 2019-08-28 20:42 | disposition home or self-care (01) ==
LOC: SED 19:29
DX: Z45.2 Encounter for adjustment and management of vascular access device (principal); Z79.899 Other long term (current) drug therapy; J44.9 Chronic obstructive pulmonary disease, unspecified
CPT/HCPCS: 99281

== ENCOUNTER 2020-04-23 17:55 | Emergency (ER) | payer OTHER, MEDICAID ==
[~2020-04-23] VITALS: Ht 170.2 cm; Wt 45.4 kg
[2020-04-23 18:10] VITALS: BP_SYST 118
--- NOTE | 2020-04-23 18:10 | NUR ---
Patient triaged and placed in waiting room, [place] T[place]. VSS and patient appears in no acute distress at this time. Accompanied by self, awaiting available bed, and MD notified of need for MSE.
--- NOTE | 2020-04-23 18:13 | NUR ---
Patient complaining of diarrhea x 5 days. reports having 2 bowel movements daily, generalized weakness, blurred vision. Pain to back of neck /10. Patient is a paraplegic in wheelchair. No other complaints/injuries per patient or as noted. will continue to monitor.
[2020-04-23 18:53] VITALS: BP_SYST 118
--- NOTE | 2020-04-23 18:53 | NUR ---
ER Dr. Mendoza at bedside examining patient.
--- NOTE | 2020-04-23 19:02 | NUR ---
Pt left without being seen, aware
== END 2020-04-23 19:02 | disposition left against medical advice (07) ==
LOC: SED 17:55
DX: R19.7 Diarrhea, unspecified (principal); Z53.21 Procedure and treatment not carried out due to patient leaving prior to being seen by health care provider

== ENCOUNTER 2020-08-03 13:23 | Inpatient (IN) | payer OTHER, MEDICAID ==
[~2020-08-03] VITALS: Ht 170.2 cm; Wt 54.0 kg
[2020-08-03 13:23] VITALS: BP_SYST 131
[~2020-08-03 13:23] MED LIST changes: -NICO-681 TD; +NICO-737 TD
[2020-08-03] MEDS ORDERED: KETOROLAC TROMETHAMINE 60 MG/2 ML VIAL IM ONE (14:00)
[2020-08-03] MEDS ORDERED: HYDROcodone/ACETAMIN 10-325 MG TAB PO ONE (14:00)
[2020-08-03 14:18] LABS: BASOPHILS # (AUTO) 0.1 K/uL (0.0-0.2); BASOPHILS % (AUTO) 0.6 % (0.0-2.0); EOSINOPHILS % (AUTO) 0.2 % (0.0-4.0); HEMATOCRIT 38.1 % (36-54); LYMPHOCYTES # (AUTO) 2.2 K/uL (1.0-5.5); LYMPHOCYTES % (AUTO) 12.6 % (20.5-51.5); MEAN CORPUSCULAR HEMOGLOBIN 20 pg (27-31); MEAN CORPUSCULAR HGB CONC 32 % (32-36); MEAN CORPUSCULAR VOLUME 64 fL (79.0-98.0); MONOCYTES # (AUTO) 1.1 K/uL (0.0-1.0); MONOCYTES % (AUTO) 6.2 % (1.7-9.3); NEUTROPHILS # (AUTO) 13.9 K/uL (1.8-7.7); NEUTROPHILS % (AUTO) 80.4 % (40.0-70.0); PLATELET COUNT (AUTO) 620 K/uL (130-430); RED BLOOD CELL COUNT(AUTO) 5.98 MIL/uL (4.2-6.2); RED CELL DISTRIBUTION WIDTH 15.9 % (9.0-15.0); WHITE BLOOD COUNT (AUTO) 17.3 K/uL (4.8-10.8)
[2020-08-03 14:19] LABS: CREATININE 0.88 mg/dL (0.55-1.30); POTASSIUM 3.8 mmol/L (3.5-5.1)
[2020-08-03 14:23] LABS: ALBUMIN 3.1 g/dL (3.4-4.8); TOTAL BILIRUBIN 0.3 mg/dL (0.0-1.0)
[2020-08-03 14:33] LABS: C-REACTIVE PROTEIN QUANT 7.1 mg/dL (0-0.5)
[2020-08-03] MEDS ORDERED: VANCOMYCIN HCL 1,000 MG in NS 250 ML IV ONE (15:00)
[2020-08-03] MEDS ORDERED: PIPERACILLIN/TAZO 4.5GM/DEX-IS 100 ML IV SCH (15:00)
[2020-08-03] MEDS ORDERED: DILAUDID PO (15:03)
[2020-08-03] MEDS ORDERED: PIPERACILLIN/TAZO 4.5 GM in D5W 100 ML IV ONE (15:15)
[2020-08-03] MEDS ORDERED: PIPERACILLIN/TAZO 4.5 GM in NS 100 ML IV ONE (15:15)
[2020-08-03] MEDS ORDERED: PIPERACILLIN/TAZOBACTAM 4.5 GM/VIAL (ZOSYN) IV ONE (15:30)
[2020-08-03] MEDS ORDERED: cefTRIAXone 1 GM IVPB PREMIX 50 ML IV SCH (16:00)
[2020-08-03] MEDS ORDERED: VANCOMYCIN HCL 1000 MG/VIAL IV ONE ×2 (16:11→17:01)
[2020-08-03 16:31] LABS: BILIRUBIN,URINE NEGATIVE (NEGATIVE); BLOOD, URINE NEGATIVE (NEGATIVE); COLOR,URINE YELLOW (YELLOW); GLUCOSE,URINE NEGATIVE (NEGATIVE); KETONES,URINE NEGATIVE (NEGATIVE); NITRITE, URINE POSITIVE (NEGATIVE); PROTEIN URINE TRACE (NEGATIVE); UROBILINOGEN,URINE 0.2 (0.2-1.0)
[2020-08-03 16:49] LABS: CLARITY/URINE HAZY (CLEAR); LEUKOCYTE ESTERASE ,URINE 2+ (NEGATIVE)
[2020-08-03 16:51] LABS: RBC,URINE 0-3 /HPF (0-3)
[2020-08-03 16:52] LABS: BACTERIA,URINE MANY /HPF (None Seen); MUCUS,URINE None Seen /LPF (None Seen); WBC,URINE 20-50 /HPF (0-3)
[2020-08-03] MEDS: NACL 0.9% 1,000 ML IV SCH ×2 (17:02→22:32)
[2020-08-03 18:02] VITALS: BP_SYST 105
[2020-08-03] MEDS ORDERED: HYDROcodone/ACETAMIN 5-325 MG TAB (NORCO/ VICODIN) PO PRN (18:30)
[2020-08-03] MEDS ORDERED: MORPHINE 2 MG/ML INJ. SYRINGE IVP PRN (18:30)
[2020-08-03 19:00] VITALS: BP_SYST 105
[2020-08-03] MEDS ORDERED: NALOXONE HCL 0.4 MG/ML AMP (NARCAN) IVP PRN (20:45)
[2020-08-03 21:00] VITALS: BP_SYST 105
[2020-08-03] MEDS: HYDROmorphone 1 INJ. 1 MG/ML CARTRIDGE IVP PRN (21:03)
[2020-08-03] MEDS: ZOLPIDEM TARTRATE 5 MG TABLET PO PRN (23:23)
[2020-08-04] VITALS: BP_SYST 125
[2020-08-04] MEDS: HYDROmorphone 1 INJ. 1 MG/ML CARTRIDGE IVP PRN ×3 (00:46→08:40)
[2020-08-04] MEDS: NACL 0.9% 1,000 ML IV SCH ×4 (04:50→20:48)
[2020-08-04] MEDS ORDERED: PIPERACILLIN/TAZOBACTAM 4.5 GM/VIAL (ZOSYN) IV ONE (05:35)
[2020-08-04] MEDS: PIPERACILLIN/TAZO 4.5GM/DEX-IS 100 ML IV SCH ×3 (05:57→21:56)
[2020-08-04] MEDS ORDERED: VANCOMYCIN HCL 750 MG in NS 250 ML IV SCH (06:00)
[2020-08-04 06:28] LABS: BASOPHILS # (AUTO) 0.1 K/uL (0.0-0.2); BASOPHILS % (AUTO) 0.7 % (0.0-2.0); EOSINOPHILS # (AUTO) 0.3 K/uL (0.0-0.4); EOSINOPHILS % (AUTO) 3.2 % (0.0-4.0); HEMATOCRIT 32.4 % (36-54); HEMOGLOBIN 10.3 g/dL (14.0-18.0); LYMPHOCYTES # (AUTO) 1.8 K/uL (1.0-5.5); LYMPHOCYTES % (AUTO) 20.2 % (20.5-51.5); MEAN CORPUSCULAR HEMOGLOBIN 20 pg (27-31); MEAN CORPUSCULAR HGB CONC 32 % (32-36); MEAN CORPUSCULAR VOLUME 64 fL (79.0-98.0); MONOCYTES # (AUTO) 0.8 K/uL (0.0-1.0); NEUTROPHILS % (AUTO) 66.9 % (40.0-70.0); PLATELET COUNT (AUTO) 526 K/uL (130-430); RED BLOOD CELL COUNT(AUTO) 5.07 MIL/uL (4.2-6.2); RED CELL DISTRIBUTION WIDTH 15.9 % (9.0-15.0); WHITE BLOOD COUNT (AUTO) 8.9 K/uL (4.8-10.8)
[2020-08-04 07:12] LABS: ALBUMIN 2.6 g/dL (3.4-4.8); CALCIUM 8.3 mg/dL (8.4-11.0); CREATININE 0.48 mg/dL (0.55-1.30); POTASSIUM 4.1 mmol/L (3.5-5.1); THYROID STIMULATING HORMONE 1.74 uIu/mL (0.36-3.74); TOTAL BILIRUBIN 0.4 mg/dL (0.0-1.0)
[2020-08-04 08:00] VITALS: BP_SYST 108
[2020-08-04 11:25] VITALS: BP_SYST 114
[2020-08-04] MEDS: HYDROmorphone 2 MG/ML VIAL IVP PRN ×3 (12:49→20:46)
[2020-08-04 15:26] VITALS: BP_SYST 131
[2020-08-04 19:25] VITALS: BP_SYST 113
[2020-08-04] MEDS: ZOLPIDEM TARTRATE 5 MG TABLET PO PRN (21:56)
[2020-08-05 00:31] VITALS: BP_SYST 113
[2020-08-05] MEDS: HYDROmorphone 2 MG/ML VIAL IVP PRN ×6 (00:47→21:12)
[2020-08-05] MEDS: NACL 0.9% 1,000 ML IV SCH ×3 (05:06→21:10)
[2020-08-05] MEDS: PIPERACILLIN/TAZO 4.5GM/DEX-IS 100 ML IV SCH ×3 (05:06→21:09)
[2020-08-05 06:31] LABS: BASOPHILS # (AUTO) 0.1 K/uL (0.0-0.2); BASOPHILS % (AUTO) 1.1 % (0.0-2.0); EOSINOPHILS # (AUTO) 0.3 K/uL (0.0-0.4); EOSINOPHILS % (AUTO) 3.7 % (0.0-4.0); HEMATOCRIT 31.2 % (36-54); HEMOGLOBIN 9.8 g/dL (14.0-18.0); LYMPHOCYTES # (AUTO) 2.4 K/uL (1.0-5.5); LYMPHOCYTES % (AUTO) 27.5 % (20.5-51.5); MEAN CORPUSCULAR HEMOGLOBIN 20 pg (27-31); MEAN CORPUSCULAR HGB CONC 32 % (32-36); MEAN CORPUSCULAR VOLUME 65 fL (79.0-98.0); MONOCYTES # (AUTO) 0.7 K/uL (0.0-1.0); MONOCYTES % (AUTO) 7.6 % (1.7-9.3); NEUTROPHILS # (AUTO) 5.3 K/uL (1.8-7.7); NEUTROPHILS % (AUTO) 60.1 % (40.0-70.0); PLATELET COUNT (AUTO) 504 K/uL (130-430); RED BLOOD CELL COUNT(AUTO) 4.83 MIL/uL (4.2-6.2); RED CELL DISTRIBUTION WIDTH 15.6 % (9.0-15.0); WHITE BLOOD COUNT (AUTO) 8.8 K/uL (4.8-10.8)
[2020-08-05 06:54] LABS: CALCIUM 7.9 mg/dL (8.4-11.0); CREATININE 0.38 mg/dL (0.55-1.30); POTASSIUM 4.2 mmol/L (3.5-5.1)
[2020-08-05 08:00] VITALS: BP_SYST 111
[2020-08-05 11:25] VITALS: BP_SYST 94
[2020-08-05 12:05] VITALS: BP_SYST 111
[2020-08-05 16:00] VITALS: BP_SYST 133
[2020-08-05 20:21] VITALS: BP_SYST 126
[2020-08-05] MEDS: ZOLPIDEM TARTRATE 5 MG TABLET PO PRN (22:06)
[2020-08-06 01:00] VITALS: BP_SYST 138
[2020-08-06] MEDS: HYDROmorphone 2 MG/ML VIAL IVP PRN ×6 (02:42→22:29)
[2020-08-06] MEDS: NACL 0.9% 1,000 ML IV SCH ×4 (04:46→21:12)
[2020-08-06] MEDS: PIPERACILLIN/TAZO 4.5GM/DEX-IS 100 ML IV SCH ×3 (05:20→21:11)
[2020-08-06 08:02] VITALS: BP_SYST 131
[2020-08-06] MEDS: ZOLPIDEM TARTRATE 5 MG TABLET PO PRN ×2 (08:49→23:43)
[2020-08-06 11:31] VITALS: BP_SYST 112
[2020-08-06] MEDS ORDERED: COMMUNICATION ORDER XX ONE (14:30)
[2020-08-06 15:29] VITALS: BP_SYST 117
[2020-08-06] MEDS ORDERED: COMMUNICATION ORDER XX PRN (16:15)
[2020-08-06] MEDS: ENOXAPARIN SODIUM 40 MG/0.4 ML SYRINGE SUBCUT SCH (21:12)
[2020-08-06 22:38] VITALS: BP_SYST 108
[2020-08-07 01:17] VITALS: BP_SYST 125
[2020-08-07] MEDS: HYDROmorphone 2 MG/ML VIAL IVP PRN ×5 (02:46→19:35)
[2020-08-07 03:22] LABS: BILIRUBIN,URINE NEGATIVE (NEGATIVE); BLOOD, URINE NEGATIVE (NEGATIVE); CLARITY/URINE CLEAR (CLEAR); COLOR,URINE YELLOW (YELLOW); GLUCOSE,URINE NEGATIVE (NEGATIVE); KETONES,URINE NEGATIVE (NEGATIVE); LEUKOCYTE ESTERASE ,URINE NEGATIVE (NEGATIVE); NITRITE, URINE NEGATIVE (NEGATIVE); PROTEIN URINE NEGATIVE (NEGATIVE); UROBILINOGEN,URINE 0.2 (0.2-1.0)
[2020-08-07] MEDS: PIPERACILLIN/TAZO 4.5GM/DEX-IS 100 ML IV SCH ×3 (06:36→21:01)
[2020-08-07] MEDS: BALSAM PERU/CASTOR OIL 60 GM OINT...G. TP SCH (11:47)
[2020-08-07 12:00] VITALS: BP_SYST 115
[2020-08-07 16:43] VITALS: BP_SYST 109
[2020-08-07 20:00] VITALS: BP_SYST 141
[2020-08-07] MEDS: ZOLPIDEM TARTRATE 5 MG TABLET PO PRN (20:48)
[2020-08-07] MEDS: ENOXAPARIN SODIUM 40 MG/0.4 ML SYRINGE SUBCUT SCH (20:50)
[2020-08-08] VITALS: BP_SYST 111
[2020-08-08] MEDS: HYDROmorphone 2 MG/ML VIAL IVP PRN ×4 (02:08→14:57)
[2020-08-08] MEDS: PIPERACILLIN/TAZO 4.5GM/DEX-IS 100 ML IV SCH ×2 (05:14→14:05)
[2020-08-08 08:00] VITALS: BP_SYST 108
[2020-08-08] MEDS: BALSAM PERU/CASTOR OIL 60 GM OINT...G. TP SCH (09:26)
[2020-08-08 12:37] VITALS: BP_SYST 95
[2020-08-08 16:04] VITALS: BP_SYST 113
== END 2020-08-08 15:45 | disposition left against medical advice (07) | DRG 919 ==
LOC: SED 13:23 → STU 15:28 → SMU 08-07 18:37
PROVIDERS: ADMIT Internal Medicine; ATTEND Internal Medicine
DX: T81.89XA Other complications of procedures, not elsewhere classified, initial encounter (principal); A41.9 Sepsis, unspecified organism; N39.0 Urinary tract infection, site not specified; G82.20 Paraplegia, unspecified; E44.0 Moderate protein-calorie malnutrition; Z16.12 Extended spectrum beta lactamase (ESBL) resistance; Z68.1 Body mass index [BMI] 19.9 or less, adult; Z20.822 Contact with and (suspected) exposure to COVID-19; B96.20 Unspecified Escherichia coli [E. coli] as the cause of diseases classified elsewhere; G89.4 Chronic pain syndrome; Y83.8 Other surgical procedures as the cause of abnormal reaction of the patient, or of later complication, without mention of misadventure at the time of the procedure; J44.9 Chronic obstructive pulmonary disease, unspecified; Z96.649 Presence of unspecified artificial hip joint; Y92.89 Other specified places as the place of occurrence of the external cause
CPT/HCPCS: 36415; 71045; 72125-TC; 72141; 73502; 76376; 80048; 80053; 80061; 81000; 81003; 83605; 84443; 85025; 86140; 87040-TC; 87070-TC; 87075-TC; 87086; 87186-TC; 93005; 96365; 96367; 96375; G0378; J0696; J1170; J1650; J1885; J2543; J3370; J7030; J7050